=== PATIENT | female | born 1985 | race Caucasian/White ===

== ENCOUNTER 2017-10-06 18:53 | Inpatient (IN) | payer BC, OTHER ==
[2017-10-06] MEDS ORDERED: MORPHINE 4 MG/ML SYR ONE (19:38)
[2017-10-06] MEDS ORDERED: ONDANSETRON 4 MG/2 ML VIAL ONE (19:38)
[2017-10-06] MEDS ORDERED: NA CHLORIDE 0.9% 1,000 ML ONE (19:38)
[2017-10-06 19:43] LABS: Absolute Lymphocytes (CBC) 2.4 K/uL (0.7-4.9); Absolute Monocytes 0.5 K/uL (0.1-1.3); Absolute Neutrophil 4.7 K/uL (1.8-8.0); Basophils % 0.8 % (0-1.3); Eosinophils % 0.8 % (0-4.4); Hematocrit 39.2 % (36.0-45.0); Lymphocytes % 30.5 % (15.3-44.8); MCH 28.3 pg (27.0-35.0); MCV 83.6 fL (80-100); MPV 8.4 fL (7.6-11.3); RBC Red Blood Cell Count 4.69 M/uL (3.86-4.86)
[2017-10-06 20:02] LABS: Urine Blood NEGATIVE (NEG); Urine Glucose TRACE (NEG); Urine Protein 2+ (NEG); Urine pH 8.5 (5.0-7.0)
[2017-10-06 20:03] LABS: Urine Amorphous Sediment 3+ /HPF (NONE SEEN); Urine Bacteria 20-50 /HPF (<20)
[2017-10-06 20:04] LABS: Urine Culture Reflex Order REFLEXED; Urine RBC NONE SEEN /HPF (NONE SEEN)
[2017-10-06 20:07] LABS: Albumin 3.8 g/dL (3.4-5.0); Bilirubin Direct 1.2 mg/dL (0-0.2); Bilirubin Total 2.2 mg/dL (0.2-1.0); Potassium 3.7 mmol/L (3.5-5.1); Protein, Total 7.8 g/dL (6.4-8.2)
--- NOTE | 2017-10-06 20:21 | RAD REPORT ---
EXAM DESCRIPTION: US - Abdomen Exam Limited - 10/06/2017 7:54 pm CLINICAL HISTORY: Abdominal pain. COMPARISON: None. FINDINGS: The gallbladder wall is not thickened. A couple of small gallstones are present. The common bile duct measures 9 millimeters IMPRESSION: Cholelithiasis Dilatation of the common bile duct probably is secondary to a nonvisualized stone within the duct
--- NOTE | 2017-10-06 21:09 | EDPHYS ---
Physician Documentation [facility] Name: Ruchi Stafford Age: 32 yrs Sex: Female : 1985 Arrival Date: 10/06/2017 Time: 18:57 Bed 7 Private MD: Gilmar Esteban E ED Physician Mike Hammer HPI: 10/06 20:58 This 32 yrs old Female presents to ER via Ambulatory with complaints of gs Abdominal Pain. 20:58 The patient presents with abdominal pain. Onset: The symptoms/episode began/occurred gs yesterday. The symptoms do not radiate. Associated signs and symptoms: Pertinent positives: vomiting. The symptoms are described as sharp. Severity of pain: At its worst the pain was severe in the emergency department the pain is unchanged. The patient has not experienced similar symptoms in the past. 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 - Social history:: Smoking status: Patient uses tobacco products, smokes one-half pack cigarettes per day. - Ebola Screening: : No symptoms or risks identified at this time. ROS: 20:58 All other systems are negative. gs Exam: 20:58 Head/Face: Normocephalic, atraumatic. Eyes: Pupils equal round and reactive to light, gs extra-ocular motions intact. Lids and lashes normal. Conjunctiva and sclera are non-icteric and not injected. Cornea within normal limits. Periorbital areas with no swelling, redness, or edema. ENT: Nares patent. No nasal discharge, no septal abnormalities noted. Tympanic membranes are normal and external auditory canals are clear. Oropharynx with no redness, swelling, or masses, exudates, or evidence of obstruction, uvula midline. Mucous membranes moist. Neck: Trachea midline, no thyromegaly or masses palpated, and no cervical lymphadenopathy. Supple, full range of motion without nuchal rigidity, or vertebral point tenderness. No Meningismus. Chest/axilla: Normal chest wall appearance and motion. Nontender with no deformity. No lesions are appreciated. Cardiovascular: Regular rate and rhythm with a normal S1 and S2. No gallops, murmurs, or rubs. Normal PMI, no JVD. No pulse deficits. Respiratory: Lungs have equal breath sounds bilaterally, clear to auscultation and percussion. No rales, rhonchi or wheezes noted. No increased work of breathing, no retractions or nasal flaring. Back: No spinal tenderness. No costovertebral tenderness. Full range of motion. Skin: Warm, dry with normal turgor. Normal color with no rashes, no lesions, and no evidence of cellulitis. MS/ Extremity: Pulses equal, no cyanosis. Neurovascular intact. Full, normal range of motion. Neuro: Awake and alert, GCS 15, oriented to person, place, time, and situation. Cranial nerves II-XII grossly intact. Motor strength 5/5 in all extremities. Sensory grossly intact. Cerebellar exam normal. Normal gait. 20:58 Constitutional: The patient appears alert, awake. 20:58 Abdomen/GI: Palpation: moderate abdominal tenderness, in the right upper quadrant. Vital Signs: 19:09 BP 131 / 84; Pulse 63; Resp 18; Temp 97.4; Pulse Ox 99% on R/A; Weight 90.72 kg (R); ak1 Height 5 ft. 5 in. (165.10 cm) (R); Pain 10/10; 19:32 BP 140 / 80; Pulse 52; Resp 16; Pulse Ox 100% on R/A; lp1 20:25 BP 104 / 56; Pulse 52; Resp 16; Pulse Ox 100% on R/A; lp1 21:41 BP 112 / 85; Pulse 56; Resp 18; Temp 97.9; Pulse Ox 99% on R/A; Pain 3/10; lp1 19:09 Body Mass Index 33.28 (90.72 kg, 165.10 cm) ak1 MDM: 19:29 Patient medically screened. gs 20:58 Differential diagnosis: cholecystitis, Cholelithiasis, non-specific abd pain, urinary gs tract infection. Data reviewed: vital signs, nurses notes. Response to treatment: the patient's symptoms have markedly improved after treatment, and as a result, I will admit patient. Physician consultation: Jesus Alberto Ardon MD and will see patient in inpatient room, would like further tests performed, MRI. 20:58 Physician consultation: Alcides Wooten MD and will see patient in inpatient room. 10/06 19:33 Order name: Basic Metabolic Panel; Complete Time: 20:36 10/06 19:33 Order name: CBC with Diff; Complete Time: 20:36 10/06 19:33 Order name: Hepatic Function; Complete Time: 20:36 10/06 19:33 Order name: Lipase; Complete Time: 20:36 10/06 19:33 Order name: Urine Microscopic Only; Complete Time: 20:36 10/06 19:45 Order name: Urine Dipstick--Ancillary (enter results); Complete Time: 20:36 fl 10/06 19:33 Order name: IV Saline Lock; Complete Time: 19:37 10/06 19:33 Order name: Labs collected and sent; Complete Time: 19:37 10/06 19:33 Order name: US Abdomen Limited; Complete Time: 20:36 10/06 19:45 Order name: Urine --Ancillary (enter results); Complete Time: 20:36 fl 10/06 20:05 Order name: Urine Culture [facility] 10/06 19:33 Order name: Urine Dipstick-Ancillary (obtain specimen); Complete Time: 19:38 gs Administered Medications: 19:42 Drug: NS 0.9% 1000 ml Route: IV; Rate: 1 bolus; Site: left antecubital; ea 21:40 Follow up: IV Status: Completed infusion; IV Intake: 1000ml lp1 19:42 Drug: morphine 4 mg Route: IVP; Site: left antecubital; ea 20:19 Follow up: Response: No adverse reaction; Marked relief of symptoms ea 19:42 Drug: Zofran 4 mg Route: IVP; Site: left antecubital; ea 20:00 Follow up: Response: No adverse reaction ea Disposition: 10/06/17 21:08 Hospitalization ordered by Davon Elizondo for Inpatient Admission. Preliminary diagnosis is Calculus of bile duct with acute cholecystitis with obstruction. - Bed requested for Telemetry/MedSurg (Inpatient). - Status is Inpatient Admission. ea - Condition is Stable. - Problem is new. - Symptoms have improved. UTI on Admission? No Signatures: Dispatcher [employer] EDLyubov Pinot, RN RN fc Georgia Hurst, RN RN ak1 Gardenia Bob RN RN ea Mike Hammer MD MD Mickie Arvizu RN lp1 Corrections: (The following items were deleted from the chart) 21:29 21:08 Hospitalization Ordered by Davon Elizondo MD for Inpatient Admission. Preliminary fc diagnosis is Calculus of bile duct with acute cholecystitis with obstruction. Bed requested for Telemetry/MedSurg (Inpatient). Status is Inpatient Admission. Condition is Stable. Problem is new. Symptoms have improved. UTI on Admission? No. 21:54 21:29 10/06/2017 21:08 Hospitalization Ordered by Davon Elizondo MD for Inpatient ea Admission. Preliminary diagnosis is Calculus of bile duct with acute cholecystitis with obstruction. Bed requested for Telemetry/MedSurg (Inpatient). Status is Inpatient Admission. Condition is Stable. Problem is new. Symptoms have improved. UTI on Admission? No.
--- NOTE | 2017-10-06 21:09 | ER ---
Nurse's Notes [facility] Name: Ruchi Stafford Age: 32 yrs Sex: Female : 1985 Arrival Date: 10/06/2017 Time: 18:57 Bed 7 Private MD: Gilmar Esteban E Diagnosis: Calculus of bile duct with acute cholecystitis with obstruction Presentation: 10/06 19:08 Presenting complaint: Patient states: epigastric pain with N/V X3 days. pt has known ak1 gallstones from "years back". Transition of care: patient was not received from another setting of care. Onset of symptoms is unknown. Risk Assessment: Do you want to hurt yourself or someone else? Patient reports no desire to harm self or others. Initial Sepsis Screen: Does the patient meet any 2 criteria? No. Patient's initial sepsis screen is negative. Does the patient have a suspected source of infection? No. Patient's initial sepsis screen is negative. Care prior to arrival: None. 19:08 Method Of Arrival: Ambulatory ak1 19:08 Acuity: MELY 3 ak1 Triage Assessment: 19:09 General: Appears in no apparent distress. uncomfortable, Behavior is calm, cooperative. ak1 Pain: Complains of pain in epigastric area. EENT: No signs and/or symptoms were reported regarding the EENT system. Neuro: No deficits noted. Cardiovascular: No deficits noted. Respiratory: No deficits noted. GI: Reports upper abdominal pain, nausea, vomiting. : No signs and/or symptoms were reported regarding the genitourinary system. Derm: No signs and/or symptoms reported regarding the dermatologic system. Musculoskeletal: No signs and/or symptoms reported regarding the musculoskeletal system. 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 - Social history:: Smoking status: Patient uses tobacco products, smokes one-half pack cigarettes per day. - Ebola Screening: : No symptoms or risks identified at this time. Screenin:32 Abuse screen: Denies threats or abuse. Denies injuries from another. Nutritional lp1 screening: No deficits noted. Tuberculosis screening: No symptoms or risk factors identified. Fall Risk None identified. Assessment: 19:31 General: Appears uncomfortable, Behavior is crying. Pain: Complains of pain in lp1 epigastric area Pain currently is 9 out of 10 on a pain scale. Quality of pain is described as sharp, stabbing. Neuro: Level of Consciousness is awake, alert, obeys commands. Cardiovascular: Patient's skin is warm and dry. Respiratory: Respiratory effort is even, unlabored. GI: Abdomen is non-distended, Bowel sounds present X 4 quads. Abdomen is tender to palpation in epigastric area Reports upper abdominal pain, nausea, vomiting. : No signs and/or symptoms were reported regarding the genitourinary system. EENT: No signs and/or symptoms were reported regarding the EENT system. Derm: Skin is pink, warm \\T\\ dry. Musculoskeletal: Circulation, motion, and sensation intact. 20:05 Reassessment: Patient and/or family updated on plan of care and expected duration. Pain ea level reassessed. Patient is alert, oriented x 3, equal unlabored respirations, skin warm/dry/pink. 21:00 Reassessment: Patient appears in no apparent distress at this time. Patient and/or lp1 family updated on plan of care and expected duration. Pain level reassessed. Patient is alert, oriented x 3, equal unlabored respirations, skin warm/dry/pink. Patient states relief with meds administered. 21:33 Reassessment: Attempted to give report, nurse will call back. lp1 21:48 Reassessment: Report given to Nimo RN on second floor. ea 21:53 Reassessment: Patient and/or family updated on plan of care and expected duration. Pain ea level reassessed. Patient is alert, oriented x 3, equal unlabored respirations, skin warm/dry/pink. Pt taken to second floor via wheelchair per nurse. Vital Signs: 19:09 BP 131 / 84; Pulse 63; Resp 18; Temp 97.4; Pulse Ox 99% on R/A; Weight 90.72 kg (R); ak1 Height 5 ft. 5 in. (165.10 cm) (R); Pain 10/10; 19:32 BP 140 / 80; Pulse 52; Resp 16; Pulse Ox 100% on R/A; lp1 20:25 BP 104 / 56; Pulse 52; Resp 16; Pulse Ox 100% on R/A; lp1 21:41 BP 112 / 85; Pulse 56; Resp 18; Temp 97.9; Pulse Ox 99% on R/A; Pain 3/10; lp1 19:09 Body Mass Index 33.28 (90.72 kg, 165.10 cm) ak1 ED Course: 18:57 Patient arrived in ED. mr 18:57 Gilmar Esteban MD is Private Physician. mr 19:08 Triage completed. ak1 19:09 Arm band placed on Patient placed in waiting room, Patient notified of wait time. ak1 19:11 Urine collected: clean catch specimen. ak1 19:21 Mike Hammer MD is Attending Physician. gs 19:25 Mickie Arvizu RN is Primary Nurse. lp1 19:30 Inserted saline lock: 20 gauge in left antecubital area, using aseptic technique. Blood lp1 collected. 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 19:32 Patient has correct armband on for positive identification. Placed in gown. Pulse ox lp1 on. NIBP on. 19:54 US Abdomen Limited In Process Unspecified. EDMS 20:15 Notified ED physician of a critical lab result(s). ALT 367. ak1 21:06 Davon Elizondo MD is Hospitalizing Provider. gs 21:33 No provider procedures requiring assistance completed. Patient admitted, IV remains in lp1 place. Administered Medications: 19:42 Drug: NS 0.9% 1000 ml Route: IV; Rate: 1 bolus; Site: left antecubital; ea 21:40 Follow up: IV Status: Completed infusion; IV Intake: 1000ml lp1 19:42 Drug: morphine 4 mg Route: IVP; Site: left antecubital; ea 20:19 Follow up: Response: No adverse reaction; Marked relief of symptoms ea 19:42 Drug: Zofran 4 mg Route: IVP; Site: left antecubital; ea 20:00 Follow up: Response: No adverse reaction ea Intake: 21:40 IV: 1000ml; Total: 1000ml. lp1 Outcome: 21:08 Decision to Hospitalize by Provider. gs 21:33 Condition: stable lp1 21:33 Instructed on the need for admit. 21:53 Admitted to Med/surg accompanied by nurse, via wheelchair, with chart, Report called to lacey Suero RN 21:54 Patient left the ED. lacey Signatures: Dispatcher [employer] ED Earnest Keira Arvizu, Mickie, RN RN lp1 Georgia Hurst, RN RN ak1 Gardenia Bob RN RN Mike Marte MD MD gs Corrections: (The following items were deleted from the chart) 21:39 21:38 Pulse 52bpm; Resp 16bpm; Pulse Ox 100% RA; Temp 97.9F Oral; lp1 lp1
--- NOTE | 2017-10-06 21:34 | P.HP ---
Certification for Inpatient Patient admitted to: Inpatient With expected LOS: >2 Midnights Practitioner: I am a practitioner with admitting privileges, knowledge of patient current condition, hospital course, and medical plan of care. Services: Services provided to patient in accordance with Admission requirements found in Title 42 Section 412.3 of the Code of Federal Regulations Patient History Date of Service: 10/06/17 Reason for admission: cholangitis History of Present Illness: Ms Stafford is a 32 years old woman with history of depression and GERD, who start about 3 days ago with RUQ abdominal pain, 8/10 of intensity, stubbing, constant, radiated to epigastric area, associated with nausea and vomiting. She denied fever, but has had chills. She was not able to keep food down. About 2 years ago she had an exploratory laparoscopy done by Gynecology for potential endometriosis. During this procedure, she was told that her gallbladder looks inflamed, however, she never follow up this finding. Today Lab work remarkable for normal WBC count, elevated transaminases, bilirubin and alk phos. No fever noted. Allergies amoxicillin Allergy (Verified 03/27/16 15:43) Rash hydrocodone Adverse Reaction (Verified 03/27/16 15:43) Nausea/Vomiting fish oil Adverse Reaction (Mild, Uncoded 03/27/16 15:43) Hives/Rash Home medications list reviewed: Yes Home Medications: Diclofenac Sodium [Voltaren] 75 mg PO BID 03/27/16 Gabapentin [Neurontin] 600 mg PO BID 03/27/16 Melatonin 10 mg PO BEDTIME 03/27/16 Phentermine HCl [Adipex-P] 37.5 mg PO DAILY 03/27/16 - Past Medical/Surgical History -: depression -: GERD -: Pike teeth 2003 -: nvdx4 - Family History Family History: Reviewed- Non-Contributory - Social History Smoking Status: Current every day smoker (vape) Alcohol use: Yes CD- Drugs: Yes Place of Residence: Home Review of Systems 10-point ROS is otherwise unremarkable Physical Examination - Physical Exam General: Alert, In no apparent distress HEENT: Atraumatic, PERRLA, Mucous membr. moist/pink, EOMI, Sclerae nonicteric Neck: Supple, 2+ carotid pulse no bruit, No LAD, Without JVD or thyroid abnormality Respiratory: Clear to auscultation bilaterally, Normal air movement Cardiovascular: Regular rate/rhythm, Normal S1 S2 Gastrointestinal: Normal bowel sounds, Tenderness (RUQ, epigastrium) Musculoskeletal: No tenderness Integumentary: No rashes Neurological: Normal speech, Normal strength at 5/5 x4 extr, Normal tone, Normal affect Lymphatics: No axilla or inguinal lymphadenopathy - Studies Laboratory Data (last 24 hrs) 10/06/17 19:30: WBC 7.8, Hgb 13.2, Hct 39.2, Plt Count 281 10/06/17 19:30: Sodium 139, Potassium 3.7, BUN 14, Creatinine 0.90, Glucose 89, Total Bilirubin 2.2 H, AST 282 H, ALT 367 H*, Alkaline Phosphatase 142 H, Lipase 133 Assessment and Plan - Problems (Diagnosis) (1) Dilated cbd, acquired Current Visit: Yes Status: Acute (2) Cholangitis Current Visit: Yes Status: Acute - Plan Will admit the patient to the hospital due to abdominal pain, secondary to biliary obstruction. She has no currently fever but abnormal liver function, clinically behave as cholangitis. US showed dilated CBD 9 mm, but not obvious stone. Will start empiric Cipro and Flagyl, consult Dr Ardon for ERCP, and Dr Wright for cholecystectomy. - Advance Directives Does patient have a Living Will: No Does patient have a Durable POA for Healthcare: No - Code Status/Comfort Care Code Status Assessed: Yes Code Status: Full Code
[2017-10-06 22:10] VITALS: BMI 33.8
[2017-10-06] MEDS ORDERED: Morphine 2 MG/2 ML SYR IV PRN (22:33)
[2017-10-06] MEDS: NA CHLORIDE 0.9% 1,000 ML IV SCH (22:50)
[2017-10-06] MEDS: CIPROFLOXACIN 400mg IV 400 MG/200 ML BAG IV SCH (22:53)
[2017-10-07] MEDS: METRONIDAZOLE 500mg IVPB 500 MG/100 ML BAG IV SCH ×3 (00:01→16:24)
[2017-10-07 05:14] LABS: Absolute Lymphocytes (CBC) 2.3 K/uL (0.7-4.9); Absolute Monocytes 0.6 K/uL (0.1-1.3); Absolute Neutrophil 2.4 K/uL (1.8-8.0); Basophils % 0.5 % (0-1.3); Eosinophils % 2.3 % (0-4.4); Hematocrit 35.3 % (36.0-45.0); Lymphocytes % 41.9 % (15.3-44.8); MCH 28.3 pg (27.0-35.0); MCV 84.2 fL (80-100); MPV 8.7 fL (7.6-11.3); Monocytes % 10.7 % (3.3-12.3); RBC Red Blood Cell Count 4.19 M/uL (3.86-4.86)
[2017-10-07 05:42] LABS: AST/SGOT 197 U/L (15-37); Albumin 3.2 g/dL (3.4-5.0); Alkaline Phosphatase 122 U/L (45-117); BUN Blood Urea Nitrogen 12 mg/dL (7-18); Bicarbonate 25 mmol/L (21-32); Bilirubin Total 1.6 mg/dL (0.2-1.0); Glucose Level 93 mg/dL (74-106); Potassium 3.8 mmol/L (3.5-5.1); Protein, Total 6.5 g/dL (6.4-8.2); Sodium Level 141 mmol/L (136-145)
[2017-10-07 05:48] LABS: ALT/SGPT 329 U/L (12-78)
[2017-10-07] MEDS ORDERED: KCL 20 MEQ/100 mL IVPB 20 MEQ/100 ML BAG IV SCH (07:00)
[2017-10-07] MEDS: NA CHLORIDE 0.9% 1,000 ML IV SCH ×2 (08:57→16:23)
[2017-10-07] MEDS ORDERED: SODIUM CHLORIDE 0.9% 10ML INJ IV PRN (09:27)
[2017-10-07] MEDS: MORPHINE 4 MG/ML SYR IV PRN ×3 (09:43→20:22)
[2017-10-07] MEDS: PANTOPRAZOLE 40 MG INJ IVP SCH (09:44)
[2017-10-07] MEDS: ONDANSETRON 4 MG/2 ML VIAL IV PRN ×3 (09:47→22:44)
[2017-10-07] MEDS: CIPROFLOXACIN 400mg IV 400 MG/200 ML BAG IV SCH ×2 (12:00→22:41)
--- NOTE | 2017-10-07 15:24 | PN ---
Date of Progress Note: 10/07/2017 Subjective: The patient seen and examined, chart reviewed and case discussed with RN. The patient s tates that her pain is still present. No further nausea or vomiting. Review of Systems: Negative except as above. Medications: Reviewed. Objective: Vital Signs: Temperature 97.4, heart rate 59, blood pressure 94/84, respirations 16, and O2 100% on room air. General: Awake, alert, oriented x3. Some mild distress. Obese female. BMI 33.9. CV: S1, S2. No murmurs. Regular rate and rhythm. Peripheral pulses present. Respiratory: Clear to auscultation bilaterally. No wheezing. Gastrointestinal: Abdomen is soft. Mild tenderness to palpation in the right upper quadrant. No re bound or guarding. Bowel sounds positive. Extremities: No clubbing, cyanosis, or edema. Neurologic: Nonfocal. Laboratory Data: Potassium 4, sodium 141, chloride 110, CO2 25, BUN 12, creatinine 0.6, glucose 93, calcium 8, total bilirubin 1.6, AST 197, ALT 329, and alkaline phosphatase 122. WBC 5.4, H and H 11. 8, 35.3. Urine culture shows mixed yodit. Assessment And Plan: A 32-year-old female with; 1.Right upper quadrant abdominal pain, likely secondary to #2. 2.Dilated common bile duct. We will obtain MRCP. GI has been consulted. We will continue with crescencio n medications and prophylactic antibiotics. 3.Cholangitis. We will continue IV antibiotics. We will follow up with surgery and GI recommendati ons. 4.Obesity, body mass index 33.9. 5.Gastroesophageal reflux disease without esophagitis. We will continue with IV PPI. 6.Gastrointestinal and deep venous thrombosis prophylaxis with PPI and SCDs. No chemical anticoagul ation due to possible intervention. SA/MODL Voice ID: [id number] Report ID: [id number]
--- NOTE | 2017-10-07 17:27 | CON ---
Date of Consultation: 10/07/2017 A 32-year-old female, Dr. Mendoza, 211. Reason For Consultation: Abnormal liver enzymes and biliary tract dilation. History Of Present Illness: Ms. Stafford is a 32-year-old female, who has been having intermittent ab dominal pain in the epigastrium and right upper quadrant along with nausea, vomiting, radiating to th e back. Her pain became worse that is 10/10. As a result, she came to the hospital. In the hospita l her not only LFTs are abnormal, ultrasound shows cholelithiasis along with biliary dilation, total bilirubin of 1.6, and AST ALT has been 197/329 respectively. As a result, I have been consulted. At this time, she is feeling somewhat better, however, pain intensity is still 7/10. Denies any meño temesis, melena, or hematochezia. Denies any fever chills. She did notice that her urine is darker in color. Past Medical History: As above. Past Surgical History: Not related to above other than laparoscopy. Social History: Positive recreational drug use of marijuana, positive smoking. Psychiatric History: None. Family History: History of cancer on both sides of the family, however, exact location unknown. Allergies: REVIEWED IN THE CHART. Medications: Reviewed in the chart. Review of Systems: General: no fever, chills. No weight loss, weight gain. Appetite has been good until the acute att ack of pain on Thursday. GI: As elaborated above. Hepatologic: As above. Pulmonary: No shortness of breath, cough, or expectoration. Cardiac: No palpitation, heart murmur. No orthopnea or dyspnea. Genitourinary: No complaint. Musculoskeletal: No complaint. No arthralgia, myalgia. Dermatologic: No complaint, no pruritus. Physical Examination: General: Young female, at this time in mild amount of distress from pain. Hemodynamic and respirato ry profile within normal range. HEENT: Atraumatic, normocephalic. Slight icterus. No pallor noted. Neck: Supple. No lymphadenopathy. Trachea central in position. Chest: Clear to auscultation and percussion. Cardiovascular: Normal S1, S2. No S3, no S4. Abdomen: Soft, although very tender. Positive Lepe sign. Bowel sounds are feeble, but present. No hepatomegaly. No splenomegaly. No succussion splash. No rebound tenderness. Extremities: Upper and lower extremities are normal and symmetrical. Muscle mass is good. Dermatologic: Normal. Diagnostic Data: Ultrasound as elaborated above and labs as elaborated above. Hemoglobin and hemato crit have been 11 and 35. Impression, Plan, And Recommendation: Ms. Stafford is a 32-year-old female with biliary dilation and cholelithiasis. Ultrasound shows biliary dilatation. An MRCP will be important. If MRCP shows ston e, she will need preoperative ERCP, otherwise she can go for direct cholecystectomy. I have had a discussion with the patient and her mother regarding the indications, contraindications, possible complications, alternatives of the ERCP along with stent placement, etc. She has good unde rstanding. Discussion of complications included, but not limited to the possibility of bleeding, per foration, tear, infection, sepsis, need for surgery, need for blood transfusion, and anesthesia related problem. She has good understan ding. She is agreeable. DIPAK/LISA Voice ID: [id number] Report ID: [id number]
--- NOTE | 2017-10-07 18:30 | CON ---
Date of Consultation: 10/07/2017 Brief History Of Present Illness: The patient is a 32-year-old female, who presents to [facility] with approximately 3 days of abdominal pain beginning after binge eating. She states that she ate unusually large amount of fried food, ice cream, and greasy food on Thursday evening. She develope d sudden onset of midepigastric abdominal pain followed by voluminous emesis, which gave her some sym ptomatic relief. However, she continued to have pain in the epigastric region, which then radiated t o the right upper quadrant. She states that the pain got subsequently worse over the course of the s ever days following this and is now located primary in the right upper quadrant. She has had persi stent nausea, vomiting. She has not had similar episodes before in the past. She feels significantl y better since being in the hospital, however, her symptoms have not completely resolved at this poin t. She continues to have the same type of sharp stabbing abdominal pain in the right upper quadrant, which is intermittent now at this time with some radiation through to the back. Past Medical History: GERD and depression. Past Surgical History: She has had a laparoscopy only. Home Medications: Include Prozac and Protonix. She has not been taking the Protonix however as of l . Allergies: TO AMOXICILLIN AND VARIOUS FORMS OF FISH OILS. Gynecologic History: Her last menstrual period 09/30/2017. Smoking History: Smoking history; she has a 10+ tobacco use history, but she quit recently and has m magen over to vaping. She actively smokes marijuana every day. She denies any other recreational miki g use. Review of Systems: A 10-point review of systems other than HPI denies. Physical Examination: Vital Signs: At the time of examination, her BMI is 33.9. She had a heart rate of 55, blood pressur e 100/51, temperature 98.2, and respiratory rate 16. General: She is awake, alert, and oriented. Psychiatric: She is appropriate and conversive. HEENT: Normocephalic. Sclerae are anicteric. Mucous members are moist. Oropharynx is clear. Neck: Supple. No JVD. Chest: Normal expansion and excursion. Cardiovascular: Regular rate and rhythm. Pulmonary: Clear to auscultation bilaterally. Abdomen: Soft with positive epigastric and right upper quadrant tenderness to palpation. Negative M urphy sign, but she does have tenderness to the right upper quadrant. No CVA angle tenderness. No r ebound. No guarding. No focal peritonitis. No hernias appreciated. Extremities: No clubbing, cyanosis, or edema. Skin: Warm and dry generally. Laboratory Data: White blood cell count cell count was 5.4, hemoglobin 11.8 over hematocrit 35.3, pl atelet count is 232. Her sodium 141, potassium 4.0, chloride 110, carbon dioxide 25, BUN 12, creatin ine 0.6, glucose is 93, and calcium 8.0. Her total bilirubin was 1.6, down from 2.2 on admission. D irect component is 1.2 on admission. AST is 197, down from 282 on admission, ALT is 329, down from 3 67 on admission. Alkaline phosphatase is 122, down from 142 on admission. Her globin is 3.3. Her l ipase is 133. Her UA showed 5-10 squamous cells, amorphous sediments 3+, bacteria 20-50, 2+ protein. Her test was essentially was negative. She had an ultrasound of the abdomen, which is of ficially read by Dr. Vu as the gallbladder wall is not thickened. A couple of small gallstones are present. The common bile duct measures 9 mm. This is consistent with cholelithiasis. There is dilatation of the common bile duct, probably secondary to nonvisualized stone within the duct. Assessment And Plan: This is a 32-year-old female, who presents with signs and symptoms of choledoch olithiasis. 1.IV fluid hydration. 2.Antibiotic coverage. 3.N.p.o. 4.Dr. Ardon has been consulted to see the patient. 5.MRCP will be performed to see if there is a stone in the duct system. If there is a stone, Dr. Chase will likely perform ERCP prior to any surgical intervention. I have discussed the risks, benefits , and alternatives of laparoscopic, possible open cholecystectomy including, but not limited to bleed ing, infection, damage to surrounding tissues, injury to bile ducts, intestines, need further operati on or procedures. She agrees to proceed as indicated. Thank you for this interesting consult. JACKELYN/LISA Voice ID: [id number] Report ID: [id number]
--- NOTE | 2017-10-07 19:35 | RAD REPORT ---
EXAM DESCRIPTION: MRICholangiogram10/07/2017 7:14 pm CLINICAL HISTORY: Abdominal pain and vomiting COMPARISON: October 06, 2017 ultrasound TECHNIQUE: Magnetic resonance cholangiogram was performed. Source images were reviewed and reconstru cted at 360 degrees rotation FINDINGS: The gallbladder wall is upper limits normal thickness. Couple of small filling defects wit hin the posterior gallbladder represent stones. . Mild dilatation of the intra and extrahepatic biliary tree is present. A filling defect within the co mmon bile duct is not seen. A stricture is not visualized. The pancreatic duct appears unremarkable IMPRESSION: Cholelithiasis. Mild dilatation of the intra and extrahepatic biliary tree. A stone within the duct was not visualize d
[2017-10-08] MEDS: METRONIDAZOLE 500mg IVPB 500 MG/100 ML BAG IV SCH ×3 (01:12→17:01)
[2017-10-08] MEDS: NA CHLORIDE 0.9% 1,000 ML IV SCH ×3 (04:09→22:15)
[2017-10-08 05:38] LABS: Absolute Lymphocytes (CBC) 2.3 K/uL (0.7-4.9); Absolute Monocytes 0.4 K/uL (0.1-1.3); Absolute Neutrophil 3.1 K/uL (1.8-8.0); Basophils % 0.4 % (0-1.3); Eosinophils % 2.5 % (0-4.4); Hematocrit 34.7 % (36.0-45.0); Lymphocytes % 38.5 % (15.3-44.8); MCH 28.6 pg (27.0-35.0); MCV 84.7 fL (80-100); MPV 8.8 fL (7.6-11.3); Monocytes % 7.3 % (3.3-12.3); RBC Red Blood Cell Count 4.09 M/uL (3.86-4.86)
[2017-10-08 05:49] LABS: ALT/SGPT 231 U/L (12-78); AST/SGOT 63 U/L (15-37); Albumin 3.2 g/dL (3.4-5.0); Alkaline Phosphatase 112 U/L (45-117); BUN Blood Urea Nitrogen 6 mg/dL (7-18); Bicarbonate 23 mmol/L (21-32); Bilirubin Total 1.1 mg/dL (0.2-1.0); Glucose Level 89 mg/dL (74-106); Potassium 3.8 mmol/L (3.5-5.1); Protein, Total 6.8 g/dL (6.4-8.2); Sodium Level 140 mmol/L (136-145)
[2017-10-08] MEDS: ONDANSETRON 4 MG/2 ML VIAL IV PRN ×2 (06:04→14:32)
[2017-10-08] MEDS: MORPHINE 4 MG/ML SYR IV PRN ×5 (06:06→22:49)
[2017-10-08] MEDS ORDERED: KCL 20 MEQ/100 mL IVPB 20 MEQ/100 ML BAG IV SCH (07:00)
--- NOTE | 2017-10-08 08:35 | P.PN ---
Subjective Date of Service: 10/08/17 Chief Complaint: cholangitis Subjective: Improving (Patient feels much better, pain almost resolved.) Physical Examination - Vital Signs Temperature: 97.3 F Blood Pressure: 104/58 Pulse: 56 Respirations: 16 Pulse Ox (%): 99 - Physical Exam General: Alert, In no apparent distress, Cooperative HEENT: Mucous membr. moist/pink Gastrointestinal: Other (soft, mild RUQ TTP, ND, no rebound no guarding) - Studies Microbiology Data (last 24 hrs): 10/06/17 19:35 Clean Catch Urine [place] Count - Final >100,000 CFU/ML. 10/06/17 19:35 Clean Catch Urine - Final Assessment And Plan - Current Problems (Diagnosis) (1) Cholangitis Onset Date: 10/07/17 Current Visit: Yes Status: Acute Plan: Patient to get ERCP with Dr. Ardon today - will plan for laparoscopic cholecystectomy tomorrow if cleared by GI - NPO after midnight - I have explained the risks, benefits and alternatives to laparoscopic possible open cholecystectomy including but not limited to bleeding, infection, damage to surrounding tissues, injury to bile ducts, and intestines, need for more surgery.
[2017-10-08] MEDS ORDERED: GENTAMICIN SULF 80 MG/2ML INJ ONE (08:54)
[2017-10-08] MEDS ORDERED: PROPOFOL 200 MG/20 ML VIAL IV ONE ×3 (09:07→12:22)
[2017-10-08] MEDS ORDERED: LIDOCAINE 1% MPF 5 ML VIAL ONE ×2 (09:08→12:22)
[2017-10-08] MEDS: PANTOPRAZOLE 40 MG INJ IVP SCH (10:06)
--- NOTE | 2017-10-08 12:01 | PN ---
Date of Progress Note: 10/08/2017 Subjective: The patient seen and examined, chart reviewed, and case discussed with RN. The patient is going for ERCP today. Still having some pain and nausea, however, no vomiting, slightly improved. Review of Systems: Negative except as above. Medications: List reviewed. Objective: Vital Signs: Temperature 97.5, heart rate 58, blood pressure 126/52, respirations 16, an d O2 100% on room air. General: Awake, alert, oriented x3. Some mild distress. Obese female. BMI 33.9. CV: S1, S2. No murmurs. Regular rate and rhythm. Peripheral pulses present. Respiratory: Clear to auscultation bilaterally. No wheezing. No stridor. Gastrointestinal: Abdomen is soft. Mild tenderness to palpation. No guarding or rigidity. No palp able masses. Bowel sounds positive. Extremities: No clubbing, cyanosis, edema. Neurologic: Nonfocal. Laboratory Data: Sodium 140, potassium 3.8, chloride 108, CO2 23, BUN 6, creatinine 0.6, glucose 89, calcium 8.3, total bilirubin 1.1, AST 63, ALT 231, and albumin 3.2. Urine culture shows mixed yodit . MRCP done yesterday showed cholelithiasis, mild dilatation of the intra and extrahepatic biliary t ree. Stone within the duct was not visualized. Assessment: A 32-year-old female with; 1.Right upper quadrant abdominal pain secondary to cholelithiasis and dilated common bile duct with possible choledocholithiasis. 2.Cholelithiasis. The patient will likely need cholecystectomy. Dr. Wooten on the case. 3.Dilated common bile duct. MRCP shows some dilatation, but no stone, may have passed. T bilirubin is coming down. Liver enzymes are also improving. may not need ERCP. We will discuss with GI. 4.Obesity, body mass index 33.9. 5.Gastroesophageal reflux disease without esophagitis. Continue IV PPI. 6.Gastrointestinal and deep venous thrombosis prophylaxis with PPI and SCDs. No chemical anticoagul ation due to possible intervention and procedures. /LISA Voice ID: [id number] Report ID: [id number]
[2017-10-08] MEDS ORDERED: NA CHLORIDE 0.9% 1,000 ML ONE (12:19)
[2017-10-08] MEDS ORDERED: GLYCOPYRROLATE 0.2 MG/ML SYR ONE ×2 (12:23→12:54)
[2017-10-08] MEDS: CIPROFLOXACIN 400mg IV 400 MG/200 ML BAG IV SCH ×2 (14:32→22:13)
--- NOTE | 2017-10-08 16:37 | OP ---
Date of Procedure: 10/08/2017 Surgeon: Jesu sAlberto Ardon MD A 32-year-old female, Dr. Mendoza. Procedures: 1.Endoscopic retrograde cholangiopancreatography. 2.Papillotomy. 3.Dilation of the papilla. 4.Removal of multiple stones. 5.8.5-Armenian 5-cm stent placement. 6.Intraoperative supervision and interpretation of biliary x-ray, fluoroscopy, total fluoroscopic ti me 1.57 minutes. Anesthesia: By Department of Anesthesia. Indications: Cholangitis, bile duct dilation, suspected choledocholithiasis. Premedication: Per anesthesia. Complexity: Complex by very nature. Tolerance Of Sedation: Excellent. Procedure In Detail: Procedure, possible complications, alternatives including, but not limited to p ossibility of bleeding, perforation, tear, infection, sepsis, need for surgery, need for blood transf usion, and 5-50% incidence of acute pancreatitis, anesthesia related problems including rare fatality explained to the patient. Informed consent was obtained. She was placed in left prone position. A fter appropriate level of sedation, scope was passed. Esophageal mucosa and gastric mucosa were not visualized due to side-view nature of the scope. In the duodenum, duodenum appeared to be normal, ho wever, major papilla appeared to be abnormal and swollen. However selective cannulation of the commo n bile duct was achieved by using cannula on the first chance. Multiple distal filling defects were noted. Common bile duct, common hepatic duct, right and left hepatic ducts and intrahepatic ducts sh owed mild dilation. At this time, deep cannulation was obtained with the help of a guidewire and a 3 mm papillotomy was d one. After this, papilla was dilated. After this, balloon was serially past. First dilation of the papilla and after that, multiple stones removed. Cholangitis also noted. After this, to ensure biliary drainage, 8.5-Armenian 5-cm stent placed was Total fluoroscopic time 1.57 minutes. Pancreatic duct was selectively avoided. Having done the above procedure in a safe, diligent, and satisfactory manner, endoscope and rest of t he endoscopic accessories were removed. The patient's oropharyngeal area cleaned out in a respectful manner. The patient has been sent in excellent condition to postop recovery, from there to the [facility] Impression: Choledocholithiasis. Plan: Await for clinical response. We will start diet. Okay for laparoscopic cholecystectomy. Complications: None immediately. The patient tolerated the procedure well. Disposition: As above. DIPAK/LISA Voice ID: [id number] Report ID: [id number]
[2017-10-08] MEDS: PROMETHAZINE 25 MG/ML VIAL IV PRN ×2 (17:01→22:47)
[2017-10-09] MEDS: METRONIDAZOLE 500mg IVPB 500 MG/100 ML BAG IV SCH ×2 (00:50→09:14)
[2017-10-09 05:58] LABS: Absolute Lymphocytes (CBC) 1.9 K/uL (0.7-4.9); Absolute Monocytes 0.6 K/uL (0.1-1.3); Absolute Neutrophil 3.9 K/uL (1.8-8.0); Basophils % 0.5 % (0-1.3); Eosinophils % 1.1 % (0-4.4); Hematocrit 36.9 % (36.0-45.0); Lymphocytes % 29.7 % (15.3-44.8); MCH 28.7 pg (27.0-35.0); MCV 84.3 fL (80-100); MPV 8.5 fL (7.6-11.3); Monocytes % 8.5 % (3.3-12.3); RBC Red Blood Cell Count 4.38 M/uL (3.86-4.86)
[2017-10-09] MEDS: PROMETHAZINE 25 MG/ML VIAL IV PRN (05:58)
[2017-10-09] MEDS: MORPHINE 4 MG/ML SYR IV PRN ×2 (05:59→12:37)
[2017-10-09 06:12] LABS: ALT/SGPT 177 U/L (12-78); AST/SGOT 41 U/L (15-37); Albumin 3.4 g/dL (3.4-5.0); Alkaline Phosphatase 108 U/L (45-117); BUN Blood Urea Nitrogen 6 mg/dL (7-18); Bicarbonate 24 mmol/L (21-32); Bilirubin Total 0.8 mg/dL (0.2-1.0); Glucose Level 82 mg/dL (74-106); Potassium 3.5 mmol/L (3.5-5.1); Protein, Total 7.3 g/dL (6.4-8.2); Sodium Level 139 mmol/L (136-145)
[2017-10-09] MEDS ORDERED: KCL 20 MEQ/100 mL IVPB 20 MEQ/100 ML BAG IV SCH (07:00)
[2017-10-09] MEDS ORDERED: Ringers Lactate 1,000 ML IV ONE ×2 (08:16→10:25)
[2017-10-09] MEDS: PANTOPRAZOLE 40 MG INJ IVP SCH (09:00)
[2017-10-09] MEDS ORDERED: PROPOFOL 200 MG/20 ML VIAL IV ONE (09:22)
[2017-10-09] MEDS ORDERED: LIDOCAINE 2% MPF 5 ML VIAL ONE (09:22)
[2017-10-09] MEDS ORDERED: GLYCOPYRROLATE 0.2 MG/ML SYR ONE (09:22)
[2017-10-09] MEDS ORDERED: MIDAZOLAM HCL 2 MG/2 ML INJ ONE (09:22)
[2017-10-09] MEDS ORDERED: FENTANYL CITR 250 MCG/5 ML ONE (09:23)
[2017-10-09] MEDS ORDERED: ROCURONIUM 50 MG/5 ML VIAL IV ONE (09:28)
[2017-10-09] MEDS: BUPIVACA 0.25%/EPI 0.0005%/PF 30 ML VIAL ONE ×2 (09:44→09:53)
[2017-10-09] MEDS: NA CHLORIDE 0.9% 1,000 ML IV SCH (10:33)
--- NOTE | 2017-10-09 10:48 | P.OP ---
Preoperative diagnosis: Acute Cholecystitis Postoperative diagnosis: Acute Cholecystitis Primary procedure: Laparoscopic Cholecystectomy Anesthesia: GETA + Local Estimated blood loss: <10cc Specimen: Gallbladder Findings: Acute inflammation Complications: None Transferred to: Recovery Room Condition: Good
[2017-10-09] MEDS: MEPERIDINE HCL 50 MG/ML AMP ONE ×6 (11:00→11:32)
--- NOTE | 2017-10-09 11:34 | OP ---
Date of Procedure: 10/09/2017 Surgeon: Alcides Wooten MD, Postoperative Diagnosis: Acute cholecystitis. Postoperative Diagnosis: Acute cholecystitis. Procedure Performed: Laparoscopic cholecystectomy. Anesthesia: General endotracheal plus local with 0.25% Marcaine with epinephrine. Estimated Blood Loss: Less than 10 cc. Specimen: Gallbladder. Findings: Acute inflammation and omental attachments to the anterior surface of the gallbladder and near the Sandra's pouch. Complications: None. Disposition: Transferred to recovery room in good condition. Procedure In Detail: After informed consent was obtained, the patient was brought to the operating r oom, prepped and draped in the usual sterile fashion. After adequate anesthesia was achieved, the welsh praumbilical area was anesthetized with 0.25% Marcaine and sharply incised. A 5-mm optical trocar wa s introduced into the abdomen without evidence complication. Insufflation was obtained to 15 mmHg. The area was inspected. There was no vital injury to vital structures upon entry into the abdomen. Additional trocar site was chosen in the epigastric region. This was similarly anesthetized and gaurav ply incised. A 5-mm trocar was introduced into the abdomen without evidence of complication. The 5 mm supraumbilical trocar was then removed and upsized to 12 mm under direct visualization without leonel dence of complication. Additional trocar site was chosen in the right upper quadrant. This was triston larly anesthetized and sharply incised and a 5 mm optical trocar was introduced into the abdomen with out evidence complication. The patient was then positioned head up right side up position, gallbladd er position. Ratcheted grasper was used to grasp the gallbladder towards the patient's right shoulde r. [place] retractor was used to take the omental attachments off the anterior surface of the gallb ladder down near the Sandra's pouch. There were significant inflammatory changes near this portion of the gallbladder and significant scarring and firm tissue consistent with acute on chronic cholecy stitis picture. Dissection continued down the Sandra's pouch to expose 2 structures, which were id entified as both the cystic duct and cystic artery. The critical view of safety was obtained from kunal th the anterior and lateral directions. After identifying that the cystic duct and cystic artery wer e visualized and the critical view of safety obtained, once again the Endo clips were placed doubly o n the proximal side and singly on the distal side of the cystic duct and cystic artery. These struct ures were then ligated using Endo Jeramie. The gallbladder was then removed from the hepatic fossa us ing the electrocautery with good hemostasis. Minimal hemostatic maneuvers were required to the hepat ic fossa for good hemostasis. The gallbladder was then placed in an EndoCatch bag after being remove d from the hepatic fossa, placed in EndoCatch bag. I removed umbilical trocar and sent off for patho logic examination. The abdomen was then re-insufflated at this time and area was inspected for prope r hemostasis, which was achieved without any additional hemostatic maneuvers. The area was copiously irrigated multiple times until completely clear and there was minimal spillage of bowel throughout t he procedure and the irrigation was completely clear. The patient was positioned in neutral position , irrigated once again, and suctioned out until completely dry and the fluid was clear. The umbilica l trocar was then removed. The umbilical trocar site was closed using a Buddy-Rose suture passe r with an 0 Vicryl in an interrupted fashion with good approximation of tissues. The abdomen was com pletely desufflated under direct visualization without evidence of complication and the trocars were then removed under direct visualization. All skin incisions were copiously irrigated and closed with a 4-0 Monocryl in a running fashion with Dermabond placed over the top. The patient tolerated the p rocedure well without evidence of complication and transferred to PACU in good condition. All counts were correct at the end of the ca se. JACKELYN/LISA Voice ID: [id number] Report ID: [id number]
[2017-10-09 11:38] VITALS: BP 131/73; TEMP 98.9; O2SAT 97
[2017-10-09] MEDS: CIPROFLOXACIN 400mg IV 400 MG/200 ML BAG IV SCH (12:37)
--- NOTE | 2017-10-09 14:04 | DS ---
Date of Discharge: 10/09/2017 Consultants: Dr. Wooten with General Surgery, Dr. Ardon with GI. Procedures: ERCP on 10/08/2017, papillotomy and dilatation of papula, removal of multiple stones, 8. 5-[place] 5 cm stent placement, intraoperative supervision, interpretation of biliary x-ray and fluoro scopy procedure on 10/09/2017, laparoscopic cholecystectomy by Dr. Wooten. Admitting Diagnoses: 1.Cholangitis. 2.Dilated common bile duct. Discharge Diagnoses: 1.Cholelithiasis with choledocholithiasis. 2.Right upper quadrant abdominal pain. 3.Dilated common bile duct. 4.Obesity, BMI 33.9. 5.Gastroesophageal reflux disease without esophagitis. Hospital Course: The patient is a 32-year-old female, came in with abdominal pain in the right upper quadrant. The patient does have known gallbladder disease. Imaging studies were done, which reveal ed cholelithiasis and also showed dilated common bile duct, but no obvious stone. The patient was ad mitted to the hospital for possible cholangitis, cholecystitis, and IV antibiotics were initiated. I V fluids were also initiated. The patient's liver enzymes were elevated. She was seen by GI, Dr. Me marmolejo. MRCP was done, which did not show any stones; however, ERCP was done due to clinical signs and s ymptoms, and multiple stones were extracted and stent was placed. Please see details as mentioned ab ove. The patient then was seen by Dr. Wooten, who recommended cholecystectomy. The patient tolerat ed the procedure well. On the day of discharge, the patient's pain resolved. She was doing signific antly better, did not have any further nausea or vomiting. The patient was then cleared for discharg e from GI and surgical standpoint. She was able to tolerate the diet. Diet: Boss. Followup: Follow up with PCP in 2-3 days. Follow up with GI, Dr. Ardon in 2 weeks. Follow up with Caroline Wooten in 7-10 days for wound check. Return to ER for worsening condition. Activity: No driving or operating heavy machinery while on narcotics. No lifting more than 10 pound s. Medications: As per medication reconciliation list. Physical Examination: General: Awake, alert, oriented, no acute distress. Obese female, BMI 33. CV: S1, S2. No murmurs. Respiratory: Clear to auscultation bilaterally. No wheezing. Gastrointestinal: Abdomen is soft, nontender, nondistended. Incision site clean, dry, intact. Extremities: No clubbing, cyanosis, edema. Neurologic: Nonfocal. Total time spent discharging the patient was 35 minutes. /LISA Voice ID: [id number] Report ID: [id number]
--- NOTE | 2017-10-16 10:46 | RAD REPORT ---
EXAM DESCRIPTION: RADFluoroscopy ERCP10/12/2017 2:31 pm CLINICAL HISTORY: Abdominal pain FINDINGS: The examination was performed by Dr. Ardon. The cystic duct was cannulated and contrast ad ministered. Multiple filling defects within the common bile duct likely represent stones. Contrast within the duo denum is not seen. Subsequently a stent was placed. Three fluoroscopic spot images are submitted
== END 2017-10-09 15:10 | disposition home or self-care (01) | DRG 419 ==
LOC: ER 18:53 → ERHOLD 21:11 → 2ND 21:50
PROVIDERS: ADMIT Internal Medicine; ATTEND Family Medicine
PROC: 0FC98ZZ Extirpation of Matter from Common Bile Duct, Via Natural or Artificial Opening Endoscopic (ICD-10-PCS; 2017-10-08)
PROC: 0F798DZ Dilation of Common Bile Duct with Intraluminal Device, Via Natural or Artificial Opening Endoscopic (ICD-10-PCS; 2017-10-08)
PROC: BF101ZZ Fluoroscopy of Bile Ducts using Low Osmolar Contrast (ICD-10-PCS; 2017-10-08)
PROC: 0FT44ZZ Resection of Gallbladder, Percutaneous Endoscopic Approach (ICD-10-PCS; principal; 2017-10-09 09:45)
DX: K80.63 Calculus of gallbladder and bile duct with acute cholecystitis with obstruction (principal); E66.9 Obesity, unspecified; Z68.33 Body mass index [BMI] 33.0-33.9, adult; K21.9 Gastro-esophageal reflux disease without esophagitis; K83.8 Other specified diseases of biliary tract; F17.290 Nicotine dependence, other tobacco product, uncomplicated; F32.9 Major depressive disorder, single episode, unspecified; Z88.1 Allergy status to other antibiotic agents; Z91.018 Allergy to other foods; Z88.5 Allergy status to narcotic agent
CPT/HCPCS: 36415; 74181; 76705; 80048; 80053; 80076; 81003; 81015; 81025; 83690; 84132; 85025; 87086; 87088; 88304; 96361; 96374; 96375; 99285; C1769; C2625; C9113; J0744; J1580; J2175; J2250; J2270; J2405; J2550; J7030

== ENCOUNTER 2018-03-23 15:08 | Emergency (ER) | payer OTHER ==
--- OUTSIDE RECORDS SUMMARY | 2018-03-23 15:10 | XMS REPORT | Encounter Summary ---
:1985 Author Reason for Visit Confirmation of Instructions 1. Urine test positive test, urine 2. Mild hyperemesis-not delivered Reglan 10 mg tablet folic acid 1 mg tablet Discussion Note: None recorded.Patient educational handouts: No information available. Plan of Care Reminders Provider Appointments OB Sono Sonogram 03/29/2018 1:45PM New OB Mike Mi, Patient 03/29/2018 1:45PM Lab In-House Results Test, Urine 03/16/2018 Referral None recorded. Procedures None recorded. Surgeries None recorded. Imaging None recorded. Medications Name Start Date folic acid 1 mg tablet Take 1 tablet every day by oral route. Reglan 10 mg tablet Take 1 tablet 4 times a day by oral route. Medications Administered None recorded. Vitals Height Weight BMI Blood Pressure 5 ft 5 in 175 lbs 29.1 kg/m2 124/80 mm[Hg] Lab Results Date Name Specimen Result Interpretation Description Value Range Status Address 03/16/2018 Urine positive In-House Test, Urine clean Test Results: catch For Internal Use Only Allergies Code Code System Name Reaction Severity Status Onset 723 RxNorm Amoxicillin Active 4419 RxNorm Fish Oil Active Problems Name Status Onset Date Source Mild Hyperemesis-not Delivered Active 03/16/2018 Active 03/16/2018 Procedures Date Name Performed by 02/05/2018 Colonoscopy Information not available Vaccine List None recorded. Social History Smoking Status Current Every Day Smoker Past Encounters 03/16/2018 Urine Test Positive; Mild Hyperemesis-not Delivered Mike Mi MD: [address] [place] [address], Ph. [phone] History of Present Illness None recorded. Review of Systems None recorded. Physical Exam None recorded.
[2018-03-23] MEDS ORDERED: NA CHLORIDE 0.9% 1,000 ML ONE ×2 (16:56→17:59)
[2018-03-23] MEDS ORDERED: ONDANSETRON 4 MG/2 ML VIAL ONE ×2 (16:56→18:43)
[2018-03-23 16:59] LABS: Absolute Lymphocytes (CBC) 0.6 K/uL (0.7-4.9); Absolute Monocytes 0.2 K/uL (0.1-1.3); Absolute Neutrophil 12.9 K/uL (1.8-8.0); Basophils % 1.7 % (0-1.3); Hematocrit 41.4 % (36.0-45.0); Lymphocytes % 4.5 % (15.3-44.8); MPV 8.5 fL (7.6-11.3); Monocytes % 1.5 % (3.3-12.3); RBC Red Blood Cell Count 4.86 M/uL (3.86-4.86)
[2018-03-23 17:15] LABS: Bilirubin Direct 0.2 mg/dL (0-0.2); Bilirubin Total 0.6 mg/dL (0.2-1.0); Potassium 3.1 mmol/L (3.5-5.1); Protein, Total 8.1 g/dL (6.4-8.2)
[2018-03-23] MEDS ORDERED: POTASSIUM CL SA 10 MEQ TAB PO ONE (18:27)
[2018-03-23 19:03] LABS: Blood Morphology Comment NOT SEEN (NOT SEEN); Platelet Estimate ADEQ
[2018-03-23 19:06] LABS: Urine Bacteria <20 /HPF (<20); Urine Culture Reflex Order NOT NEEDED; Urine Mucus 3+ /HPF (NONE SEEN); Urine RBC <5 /HPF (NONE SEEN)
[2018-03-23] MEDS ORDERED: PROMETHAZINE 25 MG/ML VIAL ONE (19:14)
--- NOTE | 2018-03-23 20:30 | ER ---
Nurse's Notes [facility] Name: Ruchi Stafford Age: 32 yrs Sex: Female : 1985 Arrival Date: 03/23/2018 Time: 15:09 Bed 25 Private MD: Gilmar Esteban E Diagnosis: Hyperemesis gravidarum with metabolic disturbance;Hypokalemia Presentation: 03/23 15:40 Presenting complaint: Patient states: N/V/D that has increased over past 3 days. aj Patient reports taking phenergan 50 mg suppository this AM [employer]. Patient is daily chronic marijuana user. 8 weeks , reportedly. Denies vaginal bleeding. Sipping sprite in triage. Transition of care: patient was not received from another setting of care. Onset of symptoms was March 20, 2018. Risk Assessment: Do you want to hurt yourself or someone else? Patient reports no desire to harm self or others. Initial Sepsis Screen: Does the patient meet any 2 criteria? No. Patient's initial sepsis screen is negative. Does the patient have a suspected source of infection? No. Patient's initial sepsis screen is negative. Care prior to arrival: None. 15:40 Method Of Arrival: Wheelchair 15:40 Acuity: MELY 3 aj Triage Assessment: 15:44 General: Appears in no apparent distress. Behavior is calm, cooperative. Pain: Denies aj pain. Neuro: Level of Consciousness is awake, alert, obeys commands, Oriented to person, place, time, situation, Appropriate for age. Respiratory: Airway is patent Respiratory effort is even, unlabored, Respiratory pattern is regular, symmetrical. GI: Reports diarrhea, nausea, vomiting. Derm: Skin is intact, is healthy with good turgor, Skin is pink, warm \T\ dry. normal. 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 - Social history:: Smoking status: Patient uses tobacco products, smokes one-half pack cigarettes per day, Patient uses street drugs, marijuana. - Ebola Screening: : Patient negative for fever greater than or equal to 101.5 degrees Fahrenheit, and additional compatible Ebola Virus Disease symptoms Patient denies exposure to infectious person Patient denies travel to an Ebola-affected area in the 21 days before illness onset No symptoms or risks identified at this time. Screenin:08 Abuse screen: Denies threats or abuse. Denies injuries from another. Nutritional rv screening: No deficits noted. Tuberculosis screening: No symptoms or risk factors identified. Fall Risk None identified. Assessment: 17:07 General: Appears in no apparent distress. uncomfortable, Behavior is calm, cooperative. rv Pain: Complains of pain in abdomen. Neuro: Level of Consciousness is awake, alert, obeys commands, Oriented to person, place, time, situation. Cardiovascular: Capillary refill < 3 seconds. Respiratory: Airway is patent. GI: Abdomen is round. : No deficits noted. No signs and/or symptoms were reported regarding the genitourinary system. EENT: No signs and/or symptoms were reported regarding the EENT system. Derm: Skin is intact. Musculoskeletal: No signs and/or symptoms reported regarding the musculoskeletal system. 20:03 Reassessment: Patient appears in no apparent distress at this time. rv Vital Signs: 15:45 BP 120 / 72; Pulse 76; Resp 20; Temp 97.8; Pulse Ox 100% on R/A; Weight 79.38 kg; aj Height 5 ft. 5 in. (165.10 cm); 17:00 BP 127 / 78; Pulse 52; Resp 16 S; Pulse Ox 100% on R/A; rv 17:30 BP 106 / 75; Pulse 59; Resp 20 S; Pulse Ox 100% on R/A; rv 18:00 BP 94 / 50; Pulse 68; Resp 19 S; Pulse Ox 100% on R/A; rv 18:45 BP 112 / 82; Pulse 61; Resp 19 S; Pulse Ox 100% on R/A; rv 19:30 BP 110 / 57; Pulse 59 MON; Resp 18 S; Pulse Ox 99% on R/A; rv 20:00 BP 95 / 49; Pulse 63; Resp 18; Pulse Ox 99% ; rv 20:30 BP 90 / 43; Pulse 63; Resp 17 S; Pulse Ox 99% on R/A; rv 20:45 BP 95 / 51; Pulse 65; Resp 19 S; Pulse Ox 98% on R/A; rv 15:45 Body Mass Index 29.12 (79.38 kg, 165.10 cm) aj ED Course: 15:09 Patient arrived in ED. rg4 15:09 Gilmar Esteban MD is Private Physician. rg4 15:43 Triage completed. aj 15:45 Arm band placed on left wrist. Patient placed in waiting room, Patient notified of wait aj time. 16:31 Dionisio Mendoza MD is Attending Physician. tw4 17:00 Inserted saline lock: 18 gauge in left antecubital area, using aseptic technique. Blood rv collected. 17:00 Initial lab(s) drawn, by me, sent to lab. rv 17:07 Basic Metabolic Panel Sent. rv 17:07 CBC with Diff Sent. rv 17:07 Hepatic Function Sent. rv 17:07 Creatinine for Radiology Sent. rv 17:07 Lipase Sent. rv 17:08 Patient has correct armband on for positive identification. Bed in low position. Call rv light in reach. Side rails up X2. Adult w/ patient. Pulse ox on. NIBP on. 18:47 Urine Microscopic Only Sent. rv 20:28 Gilmar Esteban MD is Referral Physician. tw4 20:54 No provider procedures requiring assistance completed. rv 20:55 IV discontinued, bleeding controlled, No redness/swelling at site. Pressure dressing rv applied. Administered Medications: 16:45 Drug: NS 0.9% 1000 ml Route: IV; Rate: 1 bolus; Site: left antecubital; rv 18:16 Follow up: IV Status: Completed infusion rv 16:45 Drug: Zofran 4 mg Route: IVP; Site: left antecubital; rv 18:16 Follow up: Response: Marked relief of symptoms; Nausea is decreased rv 17:56 Drug: NS 0.9% 1000 ml Route: IV; Rate: 1 bolus; Site: left antecubital; rv 18:46 Follow up: IV Status: Completed infusion rv 18:10 Drug: Potassium Chloride 40 mEq Route: PO; rv 20:57 Follow up: Response: No adverse reaction rv 18:30 Drug: Zofran 4 mg Route: IVP; Site: left antecubital; rv 20:56 Follow up: Response: Nausea unchanged rv 18:46 CANCELLED (error): NS 0.9% 1000 ml IV at 1 bolus Per protocol; 1000 mL bolus rv 19:07 Drug: Phenergan 12.5 mg Route: IVP; Site: left antecubital; rv 20:56 Follow up: Response: Nausea is decreased rv Outcome: 20:29 Discharge ordered by tw4 20:56 Discharged to home ambulatory. rv 20:56 Condition: good 20:56 Discharge instructions given to patient, Instructed on discharge instructions, follow up and referral plans. medication usage, Demonstrated understanding of instructions, follow-up care, medications, Prescriptions given X 2. 20:57 Patient left the ED. rv Signatures: Ruchi Thompson, RN RN Kelsie Novoa rg4 Dionisio Mendoza MD MD tw4 Dedrick Blount RN RN rv Corrections: (The following items were deleted from the chart) 15:45 15:40 Presenting complaint: Patient states: N/V/D that has increased over past 3 days. aj Patient reports taking phenergan 50 mg suppository this AM [employer]. Patient is daily chronic marijuana user. 8 weeks , reportedly. Denies vaginal bleeding 16:54 16:52 General: Appears in no apparent distress. comfortable, Behavior is calm, rv cooperative, 16:54 16:52 Pain: Denies pain. [facility] 16:54 16:52 Neuro: Level of Consciousness is awake, alert, obeys commands, Oriented to person, place, time, situation, 16:54 16:52 GI: No signs and/or symptoms were reported involving the gastrointestinal system. rv Abdomen is flat, 16:54 16:53 Reassessment: patient denies any pain. does not want any test done. relayed to CONCHA Michelle. rv
--- NOTE | 2018-03-23 20:30 | EDPHYS ---
Physician Documentation [facility] Name: Ruchi Stafford Age: 32 yrs Sex: Female : 1985 Arrival Date: 03/23/2018 Time: 15:09 Bed 25 Private MD: Gilmar Esteban E ED Physician Dionisio Mendoza HPI: 03/23 21:31 This 32 yrs old Female presents to ER via Wheelchair with complaints of tw4 Vomiting. 21:31 The patient presents to the emergency department with nausea, vomiting. Onset: The tw4 symptoms/episode began/occurred 3 day(s) ago. Possible causes: unknown. The symptoms are aggravated by nothing. The symptoms are alleviated by nothing. Associated signs and symptoms: The patient has no apparent associated signs or symptoms. The patient has not experienced similar symptoms in the past. 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 - Social history:: Smoking status: Patient uses tobacco products, smokes one-half pack cigarettes per day, Patient uses street drugs, marijuana. - Ebola Screening: : Patient negative for fever greater than or equal to 101.5 degrees Fahrenheit, and additional compatible Ebola Virus Disease symptoms Patient denies exposure to infectious person Patient denies travel to an Ebola-affected area in the 21 days before illness onset No symptoms or risks identified at this time. ROS: 21:31 Constitutional: Negative for fever, chills, and weight loss, Neck: Negative for injury, tw4 pain, and swelling, Cardiovascular: Negative for chest pain, palpitations, and edema, Respiratory: Negative for shortness of breath, cough, wheezing, and pleuritic chest pain, Back: Negative for injury and pain, MS/Extremity: Negative for injury and deformity, Skin: Negative for injury, rash, and discoloration. 21:31 Neuro: Negative for headache, weakness, numbness, tingling, and seizure. 21:31 Abdomen/GI: Positive for nausea and vomiting, nausea, vomiting, and diarrhea, nausea, vomiting, Negative for abdominal pain, constipation, anorexia, dysphagia, black/tarry stool, rectal pain, rectal bleeding. Exam: 21:31 Constitutional: This is a well developed, well nourished patient who is awake, alert, tw4 and in no acute distress. Head/Face: Normocephalic, atraumatic. Chest/axilla: Normal chest wall appearance and motion. Nontender with no deformity. No lesions are appreciated. Cardiovascular: Regular rate and rhythm with a normal S1 and S2. No gallops, murmurs, or rubs. Normal PMI, no JVD. No pulse deficits. Respiratory: Lungs have equal breath sounds bilaterally, clear to auscultation and percussion. No rales, rhonchi or wheezes noted. No increased work of breathing, no retractions or nasal flaring. Back: No spinal tenderness. No costovertebral tenderness. Full range of motion. MS/ Extremity: Pulses equal, no cyanosis. Neurovascular intact. Full, normal range of motion. Neuro: Awake and alert, GCS 15, oriented to person, place, time, and situation. Cranial nerves II-XII grossly intact. Motor strength 5/5 in all extremities. Sensory grossly intact. Cerebellar exam normal. Normal gait. 21:31 Abdomen/GI: Inspection: abdomen appears normal, Bowel sounds: normal, Palpation: abdomen is soft and non-tender. Vital Signs: 15:45 BP 120 / 72; Pulse 76; Resp 20; Temp 97.8; Pulse Ox 100% on R/A; Weight 79.38 kg; aj Height 5 ft. 5 in. (165.10 cm); 17:00 BP 127 / 78; Pulse 52; Resp 16 S; Pulse Ox 100% on R/A; rv 17:30 BP 106 / 75; Pulse 59; Resp 20 S; Pulse Ox 100% on R/A; rv 18:00 BP 94 / 50; Pulse 68; Resp 19 S; Pulse Ox 100% on R/A; rv 18:45 BP 112 / 82; Pulse 61; Resp 19 S; Pulse Ox 100% on R/A; rv 19:30 BP 110 / 57; Pulse 59 MON; Resp 18 S; Pulse Ox 99% on R/A; rv 20:00 BP 95 / 49; Pulse 63; Resp 18; Pulse Ox 99% ; rv 20:30 BP 90 / 43; Pulse 63; Resp 17 S; Pulse Ox 99% on R/A; rv 20:45 BP 95 / 51; Pulse 65; Resp 19 S; Pulse Ox 98% on R/A; rv 15:45 Body Mass Index 29.12 (79.38 kg, 165.10 cm) aj MDM: 16:37 Patient medically screened. tw4 21:31 Differential diagnosis: Nonspecific abd pain, gastritis. Data reviewed: vital signs, tw4 nurses notes. Data interpreted: Pulse oximetry: Interpretation: normal. Counseling: I had a detailed discussion with the patient and/or guardian regarding: the historical points, exam findings, and any diagnostic results supporting the discharge/admit diagnosis. Medication response: Phenergan markedly relieved the patient's nausea, Zofran partially relieved the patient's nausea. Response to treatment: the patient's symptoms have resolved after treatment, and as a result, I will discharge patient. Special discussion: Based on the patient's Hx, exam, and Dx evaluation, there is no indication for emergent surgery or inpatient Tx. It is understood by the patient/guardian that if the Sx's persist or worsen they need to return immediately for re-evaluation. I discussed with the patient/guardian in detail that at this point there is no indication for admission to the hospital. It is understood, however, that if the symptoms persist or worsen the patient needs to return immediately for re-evaluation. 03/23 16:38 Order name: Basic Metabolic Panel; Complete Time: 17:38 tw4 03/23 17:38 Interpretation: Normal except: K 3.1; GLUC 117; CO2 19; GFR 85. tw4 03/23 16:38 Order name: CBC with Diff tw4 03/23 17:36 Interpretation: Normal except: WBC 14.0; MCV 85.0; ARIANA% 92.3; LYM% 4.5; MN% 1.5; BASO% tw4 1.7; NEUT A 12.9. 03/23 16:38 Order name: Creatinine for Radiology; Complete Time: 17:36 tw4 03/23 17:36 Interpretation: Within normal limits: CRE 0.79; GFR 85. tw4 03/23 16:38 Order name: Hepatic Function; Complete Time: 17:36 tw4 03/23 17:36 Interpretation: Normal except: AST 9; GLOB 4.1; A/G 1.0. [facility] 03/23 16:38 Order name: Lipase; Complete Time: 17:36 tw4 03/23 17:36 Interpretation: Within normal limits: LIP 78. tw 03/23 16:38 Order name: Urine Microscopic Only [facility] 03/23 18:12 Order name: Urine Dipstick--Ancillary (enter results) 03/23 18:12 Order name: Urine --Ancillary (enter results) 03/23 19:04 Order name: Manual Differential EDMS 03/23 16:38 Order name: IV Saline Lock; Complete Time: 17:06 tw4 03/23 16:38 Order name: Labs collected and sent; Complete Time: 17:07 tw4 03/23 16:38 Order name: Urine Dipstick-Ancillary (obtain specimen); Complete Time: 18:47 tw4 03/23 16:38 Order name: Urine Test (obtain specimen); Complete Time: 18:47 tw4 Administered Medications: 16:45 Drug: NS 0.9% 1000 ml Route: IV; Rate: 1 bolus; Site: left antecubital; rv 18:16 Follow up: IV Status: Completed infusion rv 16:45 Drug: Zofran 4 mg Route: IVP; Site: left antecubital; rv 18:16 Follow up: Response: Marked relief of symptoms; Nausea is decreased rv 17:56 Drug: NS 0.9% 1000 ml Route: IV; Rate: 1 bolus; Site: left antecubital; rv 18:46 Follow up: IV Status: Completed infusion rv 18:10 Drug: Potassium Chloride 40 mEq Route: PO; rv 20:57 Follow up: Response: No adverse reaction rv 18:30 Drug: Zofran 4 mg Route: IVP; Site: left antecubital; rv 20:56 Follow up: Response: Nausea unchanged rv 18:46 CANCELLED (error): NS 0.9% 1000 ml IV at 1 bolus Per protocol; 1000 mL bolus rv 19:07 Drug: Phenergan 12.5 mg Route: IVP; Site: left antecubital; rv 20:56 Follow up: Response: Nausea is decreased rv Disposition: 03/23/18 20:29 Discharged to Home. Impression: Hyperemesis gravidarum with metabolic disturbance, Hypokalemia. - Condition is Stable. - Discharge Instructions: Hyperemesis Gravidarum, Eating Plan for Hyperemesis Gravidarum, Hypokalemia. - Prescriptions for Diclegis 10- 10 mg Oral tablet,delayed release (DR/EC) - take 1 tablet by ORAL route once daily; 10 tablet. Zofran 4 mg Oral Tablet - take 1 tablet by ORAL route every 12 hours As needed; 6 tablet. - Medication Reconciliation Form, Thank You Letter, Antibiotic Education, Prescription Opioid Use form. - Follow up: Gilmar Esteban MD; When: Upon discharge from the Emergency Department; Reason: If symptoms return, Recheck today's complaints, Continuance of care. - Problem is new. - Symptoms have improved. Signatures: Dispatcher [employer] EDMS Ruchi Thompson RN RN Dionisio Odell MD MD tw4 Dedrick Blount RN RN rv Corrections: (The following items were deleted from the chart) 18:46 18:46 NS 0.9% 1000 ml IV at 1 bolus Per protocol; 1000 mL bolus ordered. rv rv 20:57 20:29 03/23/2018 20:29 Discharged to Home. Impression: Hyperemesis gravidarum with rv metabolic disturbance; Hypokalemia. Condition is Stable. Forms are Medication Reconciliation Form, Thank You Letter, Antibiotic Education, Prescription Opioid Use. Follow up: Gilmar Esteban; When: Upon discharge from the Emergency Department; Reason: If symptoms return, Recheck today's complaints, Continuance of care. Problem is new. Symptoms have improved. tw4
[2018-03-23 21:32] LABS: Urine Blood NEGATIVE (NEG); Urine Glucose NEGATIVE (NEG); Urine Protein 2+ (NEG); Urine Specific Gravity >1.030 (1.005-1.030)
[2018-03-23 22:06] VITALS: BP 95/51; O2SAT 98
[2018-03-25 23:16] VITALS: TEMP 97.8
== END 2018-03-23 20:57 | disposition home or self-care (01) ==
LOC: ER 15:08
DX: O21.1 Hyperemesis gravidarum with metabolic disturbance (principal); E87.6 Hypokalemia; O99.330 Smoking (tobacco) complicating pregnancy, unspecified trimester; F17.210 Nicotine dependence, cigarettes, uncomplicated; Z3A.00 Weeks of gestation of pregnancy not specified; Z88.1 Allergy status to other antibiotic agents; Z91.013 Allergy to seafood
CPT/HCPCS: 36415; 80048; 80076; 81003; 81015; 81025; 83690; 85025; 96361; 96374; 96375; 99284; J2405; J2550; J7030

== ENCOUNTER 2018-03-27 17:46 | Observation (INO) | payer OTHER ==
[2018-03-27] MEDS ORDERED: METOCLOPRAMIDE 10 MG/2mL INJ ONE (18:39)
[2018-03-27] MEDS ORDERED: DIPHENHYDRAMINE 50 MG/ML VIAL ONE (18:39)
[2018-03-27] MEDS ORDERED: NA CHLORIDE 0.9% 1,000 ML ONE (18:39)
[2018-03-27 18:52] LABS: Absolute Monocytes 0.9 K/uL (0.1-1.3); Absolute Neutrophil 9.3 K/uL (1.8-8.0); Basophils % 0.3 % (0-1.3); Eosinophils % 0.1 % (0-4.4); Hematocrit 37.9 % (36.0-45.0); Lymphocytes % 22.6 % (15.3-44.8); MPV 8.4 fL (7.6-11.3); Monocytes % 6.8 % (3.3-12.3); RBC Red Blood Cell Count 4.53 M/uL (3.86-4.86)
[2018-03-27 19:12] LABS: ALT/SGPT 66 U/L (12-78); AST/SGOT 15 U/L (15-37); Albumin 3.6 g/dL (3.4-5.0); Alkaline Phosphatase 54 U/L (45-117); BUN Blood Urea Nitrogen 7 mg/dL (7-18); Bicarbonate 22 mmol/L (21-32); Bilirubin Direct 0.2 mg/dL (0-0.2); Bilirubin Total 0.7 mg/dL (0.2-1.0); Glucose Level 77 mg/dL (74-106); Lipase 128 U/L (73-393); Protein, Total 7.3 g/dL (6.4-8.2); Sodium Level 136 mmol/L (136-145)
[2018-03-27 19:14] LABS: Potassium 2.5 mmol/L (3.5-5.1)
[2018-03-27] MEDS ORDERED: KCL 20 MEQ/100 mL IVPB 20 MEQ/100 ML BAG IV ONE (19:34)
--- NOTE | 2018-03-27 19:47 | RAD REPORT ---
EXAM DESCRIPTION: US - Pelvis Complete - 03/27/2018 7:35 pm CLINICAL HISTORY: Pelvic pain COMPARISON: None FINDINGS: The uterus measures 9 x 6 x 8 centimeters. A gestational sac is present within the endomet rium. Within this is a yolk sac and pole which measures 1.6 centimeters. Cardiac activity 168 b eats per minute. 2.3 centimeter right ovarian cyst is present. Left ovary normal in size and echotexture. No significa nt free fluid IMPRESSION: Single live intrauterine with an estimated gestational age 8 weeks 0 days ERICKA 11/06/2018
[2018-03-27] MEDS ORDERED: ONDANSETRON 4 MG/2 ML VIAL ONE (20:06)
[2018-03-27 21:09] LABS: Urine Bacteria 20-50 /HPF (<20); Urine Mucus 1+ /HPF (NONE SEEN); Urine RBC NONE SEEN /HPF (NONE SEEN)
[2018-03-27 21:10] LABS: Urine Culture Reflex Order REFLEXED
--- NOTE | 2018-03-27 21:10 | EDPHYS ---
Physician Documentation [facility] Name: Ruchi Stafford Age: 32 yrs Sex: Female : 1985 Arrival Date: 03/27/2018 Time: 17:50 Bed 16 Private MD: ED Physician Kourtney Kovacs HPI: 03/27 18:20 This 32 yrs old Female presents to ER via EMS with complaints of jmm Nausea/Vomiting/Diarrhea. 18:20 The patient presents to the emergency department with nausea, vomiting, diarrhea, jmm abdominal pain, of the epigastric area. Onset: The symptoms/episode began/occurred gradually, 6 day(s) ago. Possible causes: flare up of bowel problem, irritable bowel disease, . The symptoms are aggravated by nothing. The symptoms are alleviated by nothing. Associated signs and symptoms: Pertinent positives: abdominal pain. This is a 32 year old female with a history of IBS, that presents to the ED with epigastric pain, pelvic cramping, vomiting, diarrhea beginning this past Thursday. Patient states having no relief with susana zofran. Patient states she has had similar symptoms with previous ibs flares. Patients states she is currently being seen by Dr. Ardon of [facility]. Patient was concerned when she vomited what she described as a "scab". Patient denies vaginal bleeding but states she is having pelvic cramping. Patient states she has yet to have an US during her . . 20:29 . 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 - Social history:: Smoking status: Patient uses tobacco products, smokes one-half pack cigarettes per day. - Ebola Screening: : Patient denies travel to an Ebola-affected area in the 21 days before illness onset. ROS: 18:20 Constitutional: Negative for fever, chills, and weight loss, Eyes: Negative for injury, jmm pain, redness, and discharge, Cardiovascular: Negative for chest pain, palpitations, and edema, Respiratory: Negative for shortness of breath, cough, wheezing, and pleuritic chest pain. 18:20 Abdomen/GI: Positive for abdominal pain, nausea and vomiting, diarrhea. 18:20 All other systems are negative. Exam: 18:20 Head/Face: atraumatic. Eyes: EOMI, no conjunctival erythema appreciated ENT: Moist jm Mucus Membranes Neck: Trachea midline, Supple Chest/axilla: Normal chest wall appearance and motion. Cardiovascular: Regular rate and rhythm. No edema appreciated Respiratory: Normal respirations, no respiratory distress appreciated 18:20 Constitutional: The patient appears alert, awake, uncomfortable. 18:20 Abdomen/GI: Inspection: abdomen appears normal, Bowel sounds: normal, Palpation: soft, mild abdominal tenderness, in the epigastric area. 18:20 Back: ROM is normal. 18:20 Musculoskeletal/extremity: ROM: intact in all extremities. 18:20 Skin: Appearance: Color: normal in color. 18:20 Neuro: Orientation: is normal, Mentation: is normal, Memory: is normal, Gait: is steady. 18:20 Psych: Behavior/mood is pleasant, cooperative. Vital Signs: 17:54 BP 107 / 65; Pulse 72; Resp 18; Temp 97.8; Pulse Ox 100% on R/A; Weight 74.84 kg (R); aj1 Height 5 ft. 5 in. (165.10 cm) (R); Pain 5/10; 20:30 BP 133 / 84; Pulse 64; Resp 18; Pulse Ox 100% on R/A; jb4 21:33 BP 130 / 76; Pulse 62; Resp 16; Temp 98.2; Pulse Ox 100% on R/A; jb4 17:54 Body Mass Index 27.46 (74.84 kg, 165.10 cm) aj1 MDM: 18:12 Patient medically screened. [facility] 20:23 Data reviewed: vital signs, nurses notes. [facility] 21:07 Counseling: I had a detailed discussion with the patient and/or guardian regarding: the [facility] historical points, exam findings, and any diagnostic results supporting the discharge/admit diagnosis, lab results, radiology results, the need for further work-up and treatment in the hospital. ED course: I discussed the patient with Dr. Burciaga whom accepted admission. . 03/27 18:13 Order name: Basic Metabolic Panel; Complete Time: 19:17 [facility] 03/27 18:13 Order name: CBC with Diff; Complete Time: 18:58 [facility] 03/27 18:13 Order name: Creatinine for Radiology; Complete Time: 19:02 [facility] 03/27 18:13 Order name: Hepatic Function; Complete Time: 19:17 [facility] 03/27 18:13 Order name: Lipase; Complete Time: 19:17 [facility] 03/27 19:12 Order name: HCG-Quantitative; Complete Time: 19:54 [facility] 03/27 20:46 Order name: UDS; Complete Time: 21:35 [facility] 03/27 20:46 Order name: Urine Microscopic Only; Complete Time: 21:18 [facility] 03/27 21:04 Order name: Urine Dipstick--Ancillary (enter results); Complete Time: 21:35 [facility] 03/27 21:04 Order name: Urine --Ancillary (enter results); Complete Time: 21:35 [facility] 03/27 21:11 Order name: Urine Culture [facility] 03/27 21:15 Order name: Basic Metabolic Panel [facility] 03/27 21:15 Order name: Basic Metabolic Panel [facility] 03/27 21:15 Order name: CBC with Automated Diff [facility] 03/27 18:13 Order name: IV Saline Lock; Complete Time: 18:34 [facility] 03/27 18:13 Order name: Labs collected and sent; Complete Time: 18:34 [facility] 03/27 18:13 Order name: US Pelvis Complete; Complete Time: 19:49 [facility] 03/27 21:15 Order name: NPO [facility] 03/27 21:15 Order name: CBC with Automated Diff [facility] 03/27 21:15 Order name: Lipase [facility] 03/27 21:15 Order name: Lipase [facility] 03/27 21:15 Order name: Liver (Hepatic) Function [facility] 03/27 21:15 Order name: Liver (Hepatic) Function [facility] 03/27 18:13 Order name: Urine Dipstick-Ancillary (obtain specimen); Complete Time: 20:49 [facility] 03/27 20:26 Order name: PO challenge; Complete Time: 20:43 [facility] Administered Medications: 18:33 Drug: NS 0.9% 1000 ml Route: IV; Rate: 1 bolus; Site: left antecubital; aj1 22:06 Follow up: Response: No adverse reaction; IV Status: Infusion continued upon admission jb4 18:33 Drug: Reglan 10 mg Route: IVP; Site: left antecubital; aj1 19:50 Follow up: Response: Nausea unchanged jb4 18:34 Drug: diphenhydrAMINE 12.5 mg Route: IVP; Site: left antecubital; aj1 20:36 Follow up: Response: No adverse reaction jb4 19:45 Drug: Potassium Chloride 20 mEq Route: IV; Rate: calculated rate; Site: left jb4 antecubital; 22:05 Follow up: Response: No adverse reaction; IV Status: Completed infusion jb4 19:58 Drug: Zofran 8 mg Route: IVP; Site: left antecubital; jb4 20:37 Follow up: Response: No adverse reaction; Nausea is decreased jb4 22:04 Drug: ProTONIX 40 mg Route: IVP; Site: left antecubital; jb4 22:05 Follow up: Response: No adverse reaction jb4 Disposition: 03/27/18 21:10 Hospitalization ordered by June Moralez for Observation. Preliminary diagnosis is Hyperemesis gravidarum with metabolic disturbance. - [facility]. - Status is Observation. jb4 - Condition is Stable. - Problem is an acute exacerbation. - Symptoms are unchanged. UTI on Admission? No Addendum: 04/08/2018 02:51 Co-signature as Attending Physician, Kourtney Kovacs MD. m a2 Signatures: Dispatcher [employer] EDSC Emily Barlow RN RN aj1 Arlene Rodriguez RN RN mw Mickail, Joel, PA PA jmm Bryson, James, RN RN jb4 Kourtney Kovacs MD MD ma2 Corrections: (The following items were deleted from the chart) 03/27 18:41 18:14 Abdomen Limited+US.RAD.BRZ ordered. EDSC EDSC 21:22 21:10 Hospitalization Ordered by June Moralez MD for Observation. Preliminary diagnosis mw is Hyperemesis gravidarum with metabolic disturbance. Bed requested for [facility]. Status is Observation. Condition is Stable. Problem is an acute exacerbation. Symptoms are unchanged. UTI on Admission? No. kendal 22:12 21:22 03/27/2018 21:10 Hospitalization Ordered by June Moralez MD for Observation. jb4 Preliminary diagnosis is Hyperemesis gravidarum with metabolic disturbance. Bed requested for [facility]. Status is Observation. Condition is Stable. Problem is an acute exacerbation. Symptoms are unchanged. UTI on Admission? No. mw
--- NOTE | 2018-03-27 21:10 | ER ---
Nurse's Notes [facility] Name: Ruchi Stafford Age: 32 yrs Sex: Female : 1985 Arrival Date: 03/27/2018 Time: 17:50 Bed 16 Private MD: Diagnosis: Hyperemesis gravidarum with metabolic disturbance Presentation: 03/27 17:51 Presenting complaint: Patient states: N/V/D for the past week and a half. Reports that aj1 she has been taking Zofran at home with no relief. She called EMS today, because she threw up something red. Patient reports eating red jello earlier today. Patient also reports cramps to both hands. Patient is currently 9 weeks . Transition of care: patient was not received from another setting of care. Onset of symptoms was February 2018. Risk Assessment: Do you want to hurt yourself or someone else? Patient reports no desire to harm self or others. Initial Sepsis Screen: Does the patient meet any 2 criteria? No. Patient's initial sepsis screen is negative. Does the patient have a suspected source of infection? No. Patient's initial sepsis screen is negative. Care prior to arrival: None. 17:51 Method Of Arrival: EMS: [facility] aj1 17:51 Acuity: MELY 3 aj1 Triage Assessment: 17:54 General: Appears in no apparent distress. uncomfortable, Behavior is cooperative, aj1 anxious. Pain: Complains of pain in right upper quadrant. GI: Reports diarrhea, nausea, vomiting. 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 - Social history:: Smoking status: Patient uses tobacco products, smokes one-half pack cigarettes per day. - Ebola Screening: : Patient denies travel to an Ebola-affected area in the 21 days before illness onset. Screenin:56 Abuse screen: Denies threats or abuse. Denies injuries from another. Nutritional aj1 screening: No deficits noted. Tuberculosis screening: No symptoms or risk factors identified. 19:00 Fall Risk IV access (20 points). Total Merino Fall Scale indicates No Risk (0-24 pts). jb4 Assessment: 17:56 General: Appears in no apparent distress. uncomfortable, Behavior is cooperative, aj1 anxious. Pain: Complains of pain in right upper quadrant Pain does not radiate. Pain currently is 5 out of 10 on a pain scale. Aggravated by vomiting. Neuro: Level of Consciousness is awake, alert, obeys commands, Oriented to person, place, time, situation. Cardiovascular: Patient's skin is warm and dry. Respiratory: Airway is patent Respiratory effort is even, unlabored, Respiratory pattern is regular, symmetrical. GI: Abdomen is non-distended, Bowel sounds present X 4 quads. Reports upper abdominal pain, diarrhea, nausea, vomiting. : No signs and/or symptoms were reported regarding the genitourinary system. EENT: No signs and/or symptoms were reported regarding the EENT system. Derm: No signs and/or symptoms reported regarding the dermatologic system. Skin is pink, warm \T\ dry. normal. Musculoskeletal: No signs and/or symptoms reported regarding the musculoskeletal system. Capillary refill. 19:00 Reassessment: Pt is at ultrasound. jb4 19:50 Reassessment: Patient appears in no apparent distress at this time. Patient and/or jb4 family updated on plan of care and expected duration. Pain level reassessed. Patient is alert, oriented x 3, equal unlabored respirations, skin warm/dry/pink. Pt actively vomiting, Physician notified, see [facility] for orders. 20:38 Reassessment: Patient appears in no apparent distress at this time. Patient and/or jb4 family updated on plan of care and expected duration. Pain level reassessed. Patient is alert, oriented x 3, equal unlabored respirations, skin warm/dry/pink. 21:33 Reassessment: Patient appears in no apparent distress at this time. Patient and/or jb4 family updated on plan of care and expected duration. Pain level reassessed. Patient is alert, oriented x 3, equal unlabored respirations, skin warm/dry/pink. Vital Signs: 17:54 BP 107 / 65; Pulse 72; Resp 18; Temp 97.8; Pulse Ox 100% on R/A; Weight 74.84 kg (R); aj1 Height 5 ft. 5 in. (165.10 cm) (R); Pain 5/10; 20:30 BP 133 / 84; Pulse 64; Resp 18; Pulse Ox 100% on R/A; jb4 21:33 BP 130 / 76; Pulse 62; Resp 16; Temp 98.2; Pulse Ox 100% on R/A; jb4 17:54 Body Mass Index 27.46 (74.84 kg, 165.10 cm) [facility] ED Course: 17:50 Patient arrived in ED. aj1 17:53 Triage completed. aj1 17:54 Arm band placed on Patient placed in an exam room. aj1 17:56 Patient has correct armband on for positive identification. Bed in low position. Call [facility] light in reach. Side rails up X 1. 17:56 No provider procedures requiring assistance completed. aj1 17:57 Srikanth Hahn PA is PHCP. [facility] 17:57 Kourtney Kovacs MD is Attending Physician. [facility] 18:16 Emily Barlow RN is Primary Nurse. aj1 18:32 Initial lab(s) drawn, by wv, sent to lab. Inserted saline lock: 22 gauge in left dh3 antecubital area, using aseptic technique. Blood collected. 19:31 Ultrasound completed. Patient tolerated well. sg3 19:35 US Pelvis Complete In Process Unspecified. EDMS 21:08 June Moralez MD is Hospitalizing Provider. jmm 22:10 Patient admitted, IV remains in place. 4 Administered Medications: 18:33 Drug: NS 0.9% 1000 ml Route: IV; Rate: 1 bolus; Site: left antecubital; aj1 22:06 Follow up: Response: No adverse reaction; IV Status: Infusion continued upon admission jb4 18:33 Drug: Reglan 10 mg Route: IVP; Site: left antecubital; aj1 19:50 Follow up: Response: Nausea unchanged jb4 18:34 Drug: diphenhydrAMINE 12.5 mg Route: IVP; Site: left antecubital; aj1 20:36 Follow up: Response: No adverse reaction 4 19:45 Drug: Potassium Chloride 20 mEq Route: IV; Rate: calculated rate; Site: left 4 antecubital; 22:05 Follow up: Response: No adverse reaction; IV Status: Completed infusion jb4 19:58 Drug: Zofran 8 mg Route: IVP; Site: left antecubital; jb4 20:37 Follow up: Response: No adverse reaction; Nausea is decreased jb4 22:04 Drug: ProTONIX 40 mg Route: IVP; Site: left antecubital; jb4 22:05 Follow up: Response: No adverse reaction jb4 Outcome: 21:10 Decision to Hospitalize by Provider. kendal 22:07 Admitted to L \T\ D, accompanied by tech, via stretcher, room 279, with chart. jb4 22:07 Condition: stable 22:07 Discharge instructions given to patient, Instructed on the need for admit, Demonstrated understanding of instructions. 22:12 Patient left the ED. jb4 Signatures: Dispatcher [employer] EDMS Emily Barlow, RN RN aj1 Srikanth Hahn PA PA jmm Bryson, James, RN RN jb4 Tiffany Gore 3 Melania Chen 3 Corrections: (The following items were deleted from the chart) 19:12 19:09 Pulse 120bpm; Resp 32bpm; Pulse Ox 100% RA; jb4 jb4 19:12 19:09 Reassessment: Patient appears in no apparent distress at this time. Patient jb4 and/or family updated on plan of care and expected duration. Pain level reassessed. Patient is alert/active/playful, equal unlabored respirations, skin warm/dry/pink. Pt is being held by the mother. Father is at the bedside. jb4
[2018-03-27] MEDS ORDERED: ONDANSETRON 4 MG/2 ML VIAL IV PRN (21:13)
[2018-03-27 21:17] LABS: Barbiturates NEGATIVE (NEGATIVE); Benzodiazepines NEGATIVE (NEGATIVE); Cocaine NEGATIVE (NEGATIVE); METHAMPHETAM NEGATIVE (NEGATIVE); Methadone NEGATIVE (NEGATIVE); Opiates NEGATIVE (NEGATIVE); Phencyclidine NEGATIVE (NEGATIVE); THC Cannibis POSITIVE (NEGATIVE)
[2018-03-27 21:21] LABS: Urine Blood NEGATIVE (NEG); Urine Glucose NEGATIVE (NEG); Urine Protein 1+ (NEG); Urine Specific Gravity >1.030 (1.005-1.030)
[2018-03-27] MEDS ORDERED: D5 0.45 NS 1,000 ML IV SCH (22:00)
[2018-03-27] MEDS ORDERED: PANTOPRAZOLE 40 MG INJ ONE (22:06)
[2018-03-27 22:22] VITALS: O2SAT 100
[2018-03-27 22:51] VITALS: BMI 27.4
[2018-03-27] MEDS ORDERED: Ringers Lactate 1,000 ML IV SCH (23:00)
[2018-03-28] MEDS: PROMETHAZINE 25 MG/ML VIAL IV PRN ×2 (02:25→08:35)
[2018-03-28] MEDS: ACETAMINOPHEN 500 MG TAB PO PRN ×2 (02:25→13:46)
[2018-03-28 06:11] LABS: Absolute Lymphocytes (CBC) 2.2 K/uL (0.7-4.9); Absolute Monocytes 0.7 K/uL (0.1-1.3); Absolute Neutrophil 8.2 K/uL (1.8-8.0); Basophils % 0.3 % (0-1.3); Hematocrit 35.6 % (36.0-45.0); MPV 8.5 fL (7.6-11.3); RBC Red Blood Cell Count 4.26 M/uL (3.86-4.86)
[2018-03-28 07:03] LABS: ALT/SGPT 52 U/L (12-78); AST/SGOT 11 U/L (15-37); Albumin 3.2 g/dL (3.4-5.0); Alkaline Phosphatase 50 U/L (45-117); BUN Blood Urea Nitrogen 7 mg/dL (7-18); Bicarbonate 19 mmol/L (21-32); Bilirubin Direct 0.2 mg/dL (0-0.2); Bilirubin Total 0.7 mg/dL (0.2-1.0); Glucose Level 77 mg/dL (74-106); Lipase 245 U/L (73-393); Protein, Total 6.4 g/dL (6.4-8.2); Sodium Level 136 mmol/L (136-145)
[2018-03-28 07:05] LABS: Potassium 2.9 mmol/L (3.5-5.1)
[2018-03-28] MEDS ORDERED: KCL 20 MEQ/100 mL IVPB 20 MEQ/100 ML BAG IV SCH (10:00)
[2018-03-28] MEDS ORDERED: SODIUM CHLORIDE 0.9% 10ML INJ IV PRN (10:01)
[2018-03-28] MEDS ORDERED: PANTOPRAZOLE 40 MG INJ IVP ONE (10:26)
[2018-03-28 13:48] VITALS: BP 119/60; TEMP 99
--- NOTE | 2018-03-28 20:15 | P.DS ---
Admission Date: 03/27/18 Discharge Date: 03/28/18 Disposition: ROUTINE DISCHARGE Discharge Condition: GOOD Vital Signs/Physical Exam: Temp Pulse Resp BP Pulse Ox 99.0 F 57 18 119/60 03/28/18 20:15 03/28/18 20:15 03/28/18 20:15 03/28/18 20:15 Laboratory Data at Discharge: WBC 11.1 K/uL (4.3-10.9) H D 03/28/18 05:56 Hgb 12.5 g/dL (12.0-15.0) 03/28/18 05:56 Hct 35.6 % (36.0-45.0) L 03/28/18 05:56 Plt Count 267 K/uL (152-406) 03/28/18 05:56 Sodium 136 mmol/L (136-145) 03/28/18 05:56 Potassium 2.9 mmol/L (3.5-5.1) L* 03/28/18 05:56 BUN 7 mg/dL (7-18) 03/28/18 05:56 Creatinine 0.40 mg/dL (0.55-1.3) L 03/28/18 05:56 Glucose 77 mg/dL (74-106) 03/28/18 05:56 Total Bilirubin 0.7 mg/dL (0.2-1.0) 03/28/18 05:56 AST 11 U/L (15-37) L 03/28/18 05:56 ALT 52 U/L (12-78) 03/28/18 05:56 Alkaline Phosphatase 50 U/L (45-117) 03/28/18 05:56 Lipase 245 U/L (73-393) 03/28/18 05:56 Home Medications: Ondansetron [Zofran] 4 mg PO Q4H PRN 03/27/18 Doxylamine/Pyridoxine HCl [Finesse Story 10-10 mg Tablet] 1 each PO DAILY #90 tablet. 03/28/18 Ondansetron HCl [Zofran] 8 mg PO Q8H PRN #10 tablet 03/28/18 Pantoprazole [Protonix Tab*] 40 mg PO DAILY #20 tab 03/28/18 New Medications: Doxylamine/Pyridoxine HCl [Finesse Story 10-10 mg Tablet] 1 each PO DAILY #90 tablet. Ondansetron HCl [Zofran] 8 mg PO Q8H PRN #10 tablet PRN Reason: Nausea / Vomiting Pantoprazole [Protonix Tab*] 40 mg PO DAILY #20 tab
--- NOTE | 2018-03-28 20:15 | P.OBGYNHP ---
Certification for Inpatient Patient admitted to: Observation Patient will require the following post-hospital care: None Practitioner: I am a practitioner with admitting privileges, knowledge of patient current condition, hospital course, and medical plan of care. Services: Services provided to patient in accordance with Admission requirements found in Title 42 Section 412.3 of the Code of Federal Regulations Patient History Date of Service: 03/28/18 Allergies amoxicillin Allergy (Verified 10/06/17 22:06) Rash hydrocodone Adverse Reaction (Verified 10/06/17 22:06) Nausea/Vomiting fish oil Adverse Reaction (Mild, Uncoded 10/06/17 22:06) Hives/Rash Home Medications: Ondansetron [Zofran] 4 mg PO Q4H PRN 03/27/18 Doxylamine/Pyridoxine HCl [Diclegis Dr 10-10 mg Tablet] 1 each PO DAILY #90 tablet.dr 03/28/18 Ondansetron HCl [Zofran] 8 mg PO Q8H PRN #10 tablet 03/28/18 Pantoprazole [Protonix Tab*] 40 mg PO DAILY #20 tab 03/28/18 - Past Medical/Surgical History Has patient received pneumonia vaccine in the past: No Diabetic: No -: depression -: GERD -: DJD -: miscarriage x3 -: polypectomy 01/2018 -: Innis teeth 2004 -: Cholecystectomy 09/2017 - Social History Smoking Status: Current every day smoker Alcohol use: No CD- Drugs: No Caffeine use: Yes Place of Residence: Home Physical Examination - Vital Signs Temperature: 99.0 F Blood Pressure: 119/60 Pulse: 57 Respirations: 18 Assessment and Plan - Advance Directives Does patient have a Living Will: No Does patient have a Durable POA for Healthcare: No
== END 2018-03-28 14:50 | disposition home or self-care (01) ==
LOC: ER 17:46 → ERHOLD 21:11 → 2ND-WC 21:49
PROVIDERS: ADMIT Student in an Organized Health Care Education/Training Program; ATTEND Student in an Organized Health Care Education/Training Program
DX: O21.1 Hyperemesis gravidarum with metabolic disturbance (principal); Z3A.00 Weeks of gestation of pregnancy not specified; Z88.0 Allergy status to penicillin
CPT/HCPCS: 36415; 76856; 80048; 80076; 80307; 81003; 81015; 81025; 83690; 84702; 85025; 87086; 87088; 96361; 96365; 96366; 96375; 99285; C9113; G0378; J2405; J2550; J2765; J7030

== ENCOUNTER 2018-05-08 20:26 | Emergency (ER) | payer OTHER ==
--- OUTSIDE RECORDS SUMMARY | 2018-05-08 20:29 | XMS REPORT | Encounter Summary ---
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 Abdominal pain in urinalysis, dipstick US, obstetric, limited 2. Proteinuria culture, urine Discussion Note Discussed need for adequate hydration in . Asked her to call if severe cramping, bleeding, or nausea occurs. Patient educational handouts: No information available. Plan of Care Reminders Provider Appointments OB Jimo Mike Mi MD 05/18/2018 9:45AM OB Sono Sonogram 05/18/2018 9:45AM Lab Urinalysis, In-House Results Dipstick 04/20/2018 Culture, [facility] Urine 04/20/2018 [facility] Center (Lab) Referral None recorded. Procedures None recorded. Surgeries None recorded. Imaging US, In-House Results Obstetric, Limited 04/20/2018 Medications Name Start Date Diclegis 10 mg-10 mg tablet,delayed release folic acid 1 mg tablet Take 1 tablet every day by oral route. hydrocodone 5 mg-acetaminophen 325 mg tablet metoclopramide 10 mg tablet Take 1 tablet every 6 hours by oral route. metronidazole 500 mg tablet ondansetron [address] 1 tablet every 8 hours by translingual route as needed. ondansetron HCl 4 mg tablet pantoprazole 40 mg tablet,delayed release sumatriptan 50 mg tablet Medications Administered None recorded. Vitals Height Weight BMI Blood Pressure 5 ft 5 in 170 lbs 28.3 kg/m2 121/81 mm[Hg] Lab Results Date Name Specimen Result Interpretation Description Value Range Status Address 04/20/2018 Urinalysis, Leukocytes Negative In-House Dipstick Results: For Internal Use Only Nitrite negative In-House Results: For Internal Use Only Urobilinogen .2 In-House Results: For Internal Use Only Protein 30 In-House Results: For Internal Use Only Ph 6.0 In-House Results: For Internal Use Only Blood Negative In-House Results: For Internal Use Only Specific 1.025 In-House [place] Results: For Internal Use Only Ketone Small In-House Results: For Internal Use Only Bilirubin Negative In-House Results: For Internal Use Only Glucose Negative In-House Results: For Internal Use Only Appearance Clear In-House Results: For Internal Use Only Color Yellow In-House Results: For Internal Use Only 03/29/2018 CBC W/ Auto High White Blood 14.4 K/uL 4.0-11.5 Final [place] Diff Count K/uL [facility] (Lab): [address] [place] [address] Normal Red Blood 4.66 M/uL 3.80-5.20 Final [place] Count M/uL [facility] (Lab): [address] [place] [address] Normal Hemoglobin 13.9 g/dL 10.5-15.7 Final [place] g/dL [facility] (Lab): [address] [place] [address] Normal Hematocrit 40.2 % 34.0-50.0 Final [place] % [facility] (Lab): [address] [place] [address] Normal Mean 86.2 fL 78-98 fL Final [place] Corpuscular [facility] Volume [facility] (Lab): [address] [place] [address] Normal Mean 29.8 pg 26.2-33.4 Final [place] Corpuscular pg [facility] Hemoglobin [facility] (Lab): [address] [place] [address] Normal Mean 34.6 g/dL 31.5-36.2 Final [place] Corpuscular g/dL [facility] (Lab): [address] [place] [address] Normal Red Cell 12.1 % 11.5-15.5 Final [place] Distribution % [facility] (Lab): [address] [place] [address] Normal Platelet 276 K/uL 137-338 Final [place] Count K/uL [facility] (Lab): [address] [place] [address] Low Mean 7.1 fL 8.4-11.8 Final [place] Platelet fL [facility] (Lab): [address] [place] [address] Normal Neutrophils 70.9 % 44.4-80.1 Correcte [place] % % d [facility] (Lab): [address] [place] [address] Normal Lymphocyte% 22.6 % 10.0-50.0 Final [place] % [facility] (Lab): [address] [place] [address] Normal [place] % 5.5 % 3.6-12.04 Final [place] % [facility] (Lab): [address] [place] [address] Normal Eos % 0.3 % 0.0-5.41 Final [place] % [facility] (Lab): [address] [place] [address] High Basophil % 0.8 % 0.0-0.79 Final [place] % [facility] (Lab): [address] [place] [address] 03/29/2018 Rubella Ab, Normal Rubella IgG 113.2 Final [place] Titer, Serum [IU]/mL [facility] (Lab): [address] [place] [address] 03/29/2018 CT + NG DNA, Results Final [place] PCR, Cervical [facility] (Lab): [address] [place] [address] 03/29/2018 Abo Group + Rh Bld 4+ Final [place] Rh Type, [facility] Blood [facility] (Lab): [address] [place] [address] ABO + Rh Pnl B positive Final [place] Bld [facility] (Lab): [address] [place] [address] 03/29/2018 Antibody Bld Gp Ab negative Final [place] Screen, Serum Scn Serpl Ql [facility] or Plasma [facility] (Lab): [address] [place] [address] 03/29/2018 RPR (Rapid Normal Rpr nonreactive nonreacti Final [place] Plasma ve [facility] Reagin), [facility] Serum [place] (Lab): [address] [place] [address] 03/29/2018 HIV (1+2) Ab Normal HIV P24 Ag nonreacti Final [place] Screen, Serum ve [facility] (Lab): [address] [place] [address] Normal HIV-1/2 Ab nonreacti Final [place] ve [facility] (Lab): [address] [place] [address] 03/29/2018 HBsAg Normal .Hepatitis B negative negative Final [place] (Hepatitis B Surface Regional Surface Ag), Antigen [facility] (Lab): [address] [place] [address] 03/29/2018 Culture, Bacteria Ur no growth Final [place] Urine Cult after 2 days [facility] (Lab): [address] [place] [address] 03/29/2018 Urinalysis, Leukocytes Negative In-House Dipstick Results: For Internal Use Only Nitrite negative In-House Results: For Internal Use Only Urobilinogen .2 In-House Results: For Internal Use Only Protein 30 In-House Results: For Internal Use Only Ph 6.0 In-House Results: For Internal Use Only Blood Negative In-House Results: For Internal Use Only Specific 1.030 In-House [place] Results: For Internal Use Only Ketone Large In-House Results: For Internal Use Only Bilirubin Negative In-House Results: For Internal Use Only Glucose Negative In-House Results: For Internal Use Only Appearance Clear In-House Results: For Internal Use Only Color Yellow In-House Results: For Internal Use Only US, No In-House Obstetric, observation Results: Limited recorded. For Internal Use Only US, No In-House Obstetric, observation Results: Transvaginal recorded. For Internal Use Only [place], Clue Cells negative In-House Vaginal Results: For Internal Use Only Wbcs negative In-House Results: For Internal Use Only Trichomonads negative In-House Results: For Internal Use Only Epithelial normal In-House Cells Results: For Internal Use Only Rbcs negative In-House Results: For Internal Use Only Allergies Code Code System Name Reaction Severity Status Onset 723 RxNorm Amoxicillin Active 4419 RxNorm Fish Oil Active Problems Name Status Onset Date Source Mild Hyperemesis-not Delivered Active 03/16/2018 Active 03/16/2018 Severe Hyperemesis Gravidarum Active 03/29/2018 Abdominal Pain in Active 04/20/2018 Proteinuria Active 04/20/2018 Procedures Date Name Performed by 02/05/2018 Colonoscopy Information not available 03/29/2018 US, Obstetric, Transvaginal In-House Results For Internal Use Only [address] 04/20/2018 US, Obstetric, Limited In-House Results For Internal Use Only 88226 Vaccine List None recorded. Social History Smoking Status Current Every Day Smoker Past Encounters 04/20/2018 Abdominal Pain in ; Proteinuria KAYLAH Chappell: [address] [place] [id number], Ph. [phone] 03/29/2018 Screening; Severe Hyperemesis Gravidarum; Bacterial Disease Screening Mike Mi MD: [address] [place] [id number], Ph. [phone] History of Present Illness Note: Pt started to have sharp pains in lower abdomen starting at 9am that were constant, without bleeding. Pt now feels it is improving, but it still occurs with moving side to side or changing position. Does not drink water, only pineapple juice. Occasional nausea with resolution of vomiting with Reglan use in morning. Reports chronic diarrhea and continues-dx with possible IBS.Review of Systems: ROS as noted in the HPI Review of Systems None recorded. Physical Exam None recorded.
--- OUTSIDE RECORDS SUMMARY | 2018-05-08 20:29 | XMS REPORT | Encounter Summary ---
:1985 Author Reason for Visit NOB Instructions 1. screening CBC w/ auto diff CT + NG DNA, PCR, cervical culture, urine HIV (1+2) Ab screen, serum RPR (rapid plasma reagin), serum abo group + rh type, blood rubella Ab, titer, serum pap test, thinprep, cervical HBsAg (hepatitis B surface Ag), serum antibody screen, serum or plasma 2. Severe hyperemesis gravidarum urinalysis, dipstick US, obstetric, transvaginal 3. Bacterial disease screening [place], vaginal Discussion Note Discussed diet, activity, PNV, and iron supplement. reviewed OTC medications safe in .Explained expected symptoms for current and future trimesters. Plans for upcoming visits outlined, including ultrasounds and screening tests. Gave new Ob literature. Explained how to contact me and asked her to call if cramping, bleeding, or nausea occur or if she has any questions or problems. Total time face to face with patient was at least 45 minutes and over 50% was spent on counseling. RContinue Diclegis BID, add Reglan TID or QID, and take Zofran PRN. Recommend she hold PNV until nausea resolves. Take adequate fluids. Eat only dry starchy food such as toast, crackers, mashed potatoes, rice, etc, and only in small amounts. Patient educational handouts: No information available. Plan of Care Reminders Provider Appointments OB Sono Mike Hiwot, 04/22/2018 10:15AM OB Sono Sonogram 04/22/2018 10:15AM Lab [place], In-House Results Vaginal 03/29/2018 Urinalysis, In-House Results Dipstick 03/29/2018 CBC W/ Auto [place] Diff 03/29/2018 [facility] (Lab) CT + NG DNA, Nicholas PCR, Cervical 03/29/2018 [facility] (Lab) Culture, Urine Nicholas 03/29/2018 [facility] (Lab) HIV (1+2) Ab [place] Screen, Serum 03/29/2018 [facility] (Lab) RPR (Rapid Nicholas Plasma Reagin), Serum 03/29/2018 [facility] (Lab) Abo Group + Rh Nicholas Type, Blood 03/29/2018 [facility] (Lab) Rubella Ab, Nicholas Titer, Serum 03/29/2018 [facility] (Lab) Pap Test, Nicholas Thinprep, Cervical 03/29/2018 [facility] (Lab) HBsAg [place] (Hepatitis B Surface Ag), 03/29/2018 [facility] (Lab) Antibody [place] Screen, Serum or Plasma 03/29/2018 [facility] (Lab) Referral None recorded. Procedures None recorded. Surgeries None recorded. Imaging US, Obstetric, In-House Results Transvaginal 03/29/2018 Medications Name Start Date folic acid 1 mg tablet Take 1 tablet every day by oral route. Reglan 10 mg tablet Take 1 tablet every 6 hours by oral route. Zofran ODT [address] 1 tablet every 8 hours by translingual route as needed. Medications Administered None recorded. Vitals Height Weight BMI Blood Pressure 5 ft 5 in 165 lbs 27.5 kg/m2 118/79 mm[Hg] Lab Results Date Name Specimen Result Interpretation Description Value Range Status Address 03/29/2018 Urinalysis, Leukocytes Negative In-House Dipstick Results: For Internal Use Only Nitrite negative In-House Results: For Internal Use Only Urobilinogen .2 In-House Results: For Internal Use Only Protein 30 In-House Results: For Internal Use Only Ph 6.0 In-House Results: For Internal Use Only Blood Negative In-House Results: For Internal Use Only Specific 1.030 In-House [place] Results: For Internal Use Only Ketone Large In-House Results: For Internal Use Only Bilirubin Negative In-House Results: For Internal Use Only Glucose Negative In-House Results: For Internal Use Only Appearance Clear In-House Results: For Internal Use Only Color Yellow In-House Results: For Internal Use Only 03/16/2018 Test, Urine Test positive In- House Urine clean Results: catch For Internal Use Only US, Obstetric, No observation In-House Transvaginal recorded. Results: For Internal Use Only [place], Clue [...] Active 03/16/2018 Severe Hyperemesis Gravidarum Active 03/29/2018 Procedures Date Name Performed by 02/05/2018 Colonoscopy Information not available 03/29/2018 US, Obstetric, Transvaginal In-House Results For Internal Use Only [address] Vaccine List None recorded. Social History Smoking Status Current Every Day Smoker Past Encounters 03/29/2018 Screening; Severe Hyperemesis Gravidarum; Bacterial Disease Screening Mike Mi MD: [address] [place] [address], Ph. [phone] 03/16/2018 Urine Test Positive; Mild Hyperemesis-not Delivered Mike Mi MD: [address] [place] [phone], Ph. [phone] History of Present Illness Note: New ob visit. Complains of frequent nausea and vomiting. She was at the hospital in [place] two days ago and was kept overnight, discharged yesterday afternoon. She has vomited only once since then. She was prescribed Diclegis and Zofran, which have helped. She was also prescribed Reglanbut has not picked it up yet. Occ. mild cramping, no bleeding. History of term x 5 without problems. SAB x 3. 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 ROS Reported By: Patient Constitutional: Constitutional: no fatigue, no fever, no significant weight gain, no significant weight loss Skin: Skin: no abnormal moles, no rashes Eyes: Eyes: no irritation, no vision changes ENMT: ENMT: no hearing loss, no ear pain, no nose/sinus problems, no sore throat, no snoring, no dry mouth, no mouth ulcers Respiratory: Respiratory: no dyspnea / shortness of breath, no cough, no sputum production, no hemoptysis, no wheezing Cardiovascular: Cardiovascular: no chest pain, no palpitations, no orthopnea Gastrointestinal: Gastrointestinal: no heartburn, no dysphagia, no abdominal pain, no bowel movement changes, no diarrhea, no constipation, no rectal bleeding, nausea, vomiting Genitourinary: Genitourinary: no hematuria, no abnormal bleeding, no flank pain, no trouble urinating, no incontinence, no rash, no lesion, no discharge, no vaginal odor, no vaginal itching Endocrine: Menstrual: no menstrual problems, no PMDD symptoms. Menopausal: no menopausal symptoms. Sexual: no sexual problems Musculoskeletal: Musculoskeletal: no muscle aches, no muscle weakness, no arthralgias/joint pain, no back pain Neurological: Neurologic: no headaches, no dizziness, no LOC, no weakness, no numbness, no seizures Psychological: Psych: no depression, no alcoholism, no sleep disturbances Physical Exam Initial OB Reported By: Patient General Appearance: General Appearance: healthy-appearing , well- nourished, no acute distress Skin: Appearance: no rashes, no lesions Neck: Thyroid: no enlargement, no nodules, non-tender Lymph Nodes: Palpation: non tender submandibular nodes, non tender axillary nodes, non tender inguinal nodes Cardiovascular System: Auscultation: RRR, no murmur, no gallops. Legs: no LLE edema, no RLE edema, no varicosities, no calf tenderness, no palpable cords Lungs: Auscultation: no wheezing, no rales / crackles, no rhonchi Abdomen: Auscultation/Inspection/Palpation: soft, non-distended, no tenderness/guarding/rebound, no hepatomegaly, no splenomegaly, no masses, no CVA tenderness. Hernia: none palpated Female Genitalia: Vulva: grossly normal, no lesions. Vagina no abnormal vaginal discharge, no blood in vaginal vault. Cervix: grossly normal, no discharge, no cervical motion tenderness, sample taken for a Pap smear. Uterus: size appropriate for gestational age, regular contour, mobile. Adnexae: no masses palpated, no tenderness Rectal Exam: Rectum: normal perianal skin, no hemorrhoids
--- OUTSIDE RECORDS SUMMARY | 2018-05-08 20:30 | XMS REPORT | Encounter Summary ---
:1985 Author Reason for Visit Ob problem Instructions 1. Acute bronchitis urinalysis, dipstick Zithromax Z-Roby 250 mg tablet 2. Missed miscarriage US, obstetric, limited Cytotec 200 mcg tablet Tylenol-Codeine #3 300 mg-30 mg tablet Discussion Note Findings reviewed with the patient. Nature of SAB, risk of recurrence, and prognosis for future pregnancies discussed. Management options explained, including dilation & curettage, medical therapy, and expectant management. At least 15 min. of face to face time with the patient, >50% spent on counseling. Patient educational handouts: No information available. Plan of Care Reminders Provider Appointments OB Sono Mike Hiwot, 05/18/2018 9:45AM OB Sono Sonogram 05/18/2018 9:45AM Lab Urinalysis, In-House Results Dipstick 05/03/2018 Referral None recorded. Procedures None recorded. Surgeries None recorded. Imaging US, In-House Results Obstetric, Limited 05/03/2018 Medications Name Start Date cholestyramine (with sugar) 4 gram powder for susp in a packet Cytotec 200 mcg tablet four tabs per vagina now. may repeat in 12 hrs PRN Diclegis 10 mg-10 mg tablet,delayed release fluticasone 0.05 % topical cream folic acid 1 mg tablet Take 1 [...] mg tablet,delayed release sumatriptan 50 mg tablet Tylenol-Codeine #3 300 mg-30 mg tablet 1-2 p.o. q 4 hrs PRN pain Zithromax Z-Roby 250 mg tablet TAKE 2 TABLETS (500 MG) BY ORAL ROUTE ONCE DAILY FOR 1 DAY THEN 1 TABLET (250 MG) BY ORAL ROUTE ONCE DAILY FOR 4 DAYS Medications Administered None recorded. Vitals Height Weight BMI Blood Pressure 5 ft 5 in 171 lbs 28.5 kg/m2 133/86 mm[Hg] Lab Results Date Name Specimen Result Interpretation Description Value Range Status Address 05/03/2018 Urinalysis, Leukocytes Negative In-House Dipstick Results: For Internal Use Only Nitrite negative In-House Results: For Internal Use Only Urobilinogen .2 In-House Results: For Internal Use Only Protein Negative In-House Results: For Internal Use Only Ph 6.0 In-House Results: For Internal Use Only Blood Negative In-House Results: For Internal Use Only Specific 1.030 In-House [place] Results: For Internal Use Only Ketone Trace In-House Results: For Internal Use Only Bilirubin Negative In-House Results: For Internal Use Only Glucose Negative In-House Results: For Internal Use Only Appearance Clear In-House Results: For Internal Use Only Color Yellow In-House Results: For Internal Use Only 04/20/2018 Urinalysis, Leukocytes Negative In-House Dipstick Results: For Internal Use Only Nitrite negative In-House Results: For Internal Use Only Urobilinogen .2 In-House Results: For Internal Use Only Protein 30 In-House Results: For Internal Use Only Ph 6.0 In-House Results: For Internal Use Only Blood Negative In-House Results: For Internal Use Only Specific 1.025 In-House [place] Results: For Internal Use Only Ketone Small In-House Results: For Internal Use Only Bilirubin Negative In-House Results: For Internal Use Only Glucose Negative In-House Results: For Internal Use Only Appearance Clear In-House Results: For Internal Use Only Color Yellow In-House Results: For Internal Use Only US, Obstetric, No observation In-House Limited recorded. Results: For Internal Use Only US, Obstetric, No observation In-House Limited recorded. Results: For Internal Use Only Allergies Code Code System Name Reaction Severity Status Onset 723 RxNorm Amoxicillin Active 4419 RxNorm Fish Oil Active Problems Name Status Onset Date Source Mild Hyperemesis-not Delivered Active 03/16/2018 Active 03/16/2018 Severe Hyperemesis Gravidarum Active 03/29/2018 Abdominal Pain in Active 04/20/2018 Proteinuria Active 04/20/2018 Procedures Date Name Performed by 02/05/2018 Colonoscopy Information not available 04/20/2018 US, Obstetric, Limited In-House Results For Internal Use Only [address] 05/03/2018 US, Obstetric, Limited In-House Results For Internal Use Only 69423 Vaccine List None recorded. Social History Smoking Status Current Every Day Smoker Past Encounters 05/03/2018 Acute Bronchitis; Missed Miscarriage Mike Mi MD: [address] [facility], [address], [place] [address], Ph. [phone] 04/20/2018 Abdominal Pain in ; Proteinuria Ninfa KAYLAH Galindo: [address], [address], [place], [place] [id number], Ph. [phone] History of Present Illness Note: Patient complains of fever, sinus congestion, and cough with brown sputum. No vaginal bleeding or pelvic cramping. She has a doppler at home and has not been able to find heart tones. Review of Systems None recorded. 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 Mood and Affect: active and alert, normal mood, normal affect Skin: Appearance: no rashes, no lesions Neck: Neck: supple, trachea midline, no masses; *oropharynx injected, tonsils slightly enlarged; no exudate*. Thyroid: no enlargement, no nodules, non-tender Lungs: Respiratory Effort: no intercostal retractions, no accessory muscle usage. Auscultation: clear to auscultation, no wheezing, no rales/crackles, no rhonchi Lymph Nodes: Palpation: non tender submandibular nodes
--- OUTSIDE RECORDS SUMMARY | 2018-05-08 20:30 | XMS REPORT | Encounter Summary ---
:1985 Author Reason for Visit Ob problem Instructions 1. Abdominal pain in urinalysis, dipstick US, obstetric, limited 2. Proteinuria Discussion Note Discussed need for adequate hydration in . Asked her to call if severe cramping, bleeding, or nausea occurs. Patient educational handouts: No information available. Plan of Care Reminders Provider Appointments OB Sono Mike Mi, 05/18/2018 9:45AM OB Sono Sonogram 05/18/2018 9:45AM Lab Urinalysis, In-House Results Dipstick 04/20/2018 Referral None recorded. Procedures None recorded. Surgeries [...] For Internal Use Only Specific 1.025 In-House [place] Results: For Internal Use Only Ketone Small In-House Results: For Internal Use Only Bilirubin Negative In-House Results: For Internal Use Only Glucose Negative In-House Results: For Internal Use Only Appearance Clear In-House Results: For Internal Use Only Color Yellow In-House Results: For Internal Use Only 03/29/2018 CBC W/ Auto High White Blood 14.4 K/uL 4.0-11.5 Final [place] Diff Count K/uL [facility] (Lab): [address] [place] [address] Normal Red Blood 4.66 M/uL 3.80-5.20 Final [place] Count M/uL [facility] (Lab): [address] [place] [address] Normal Hemoglobin 13.9 g/dL 10.5-15.7 Final [place] g/dL [facility] (Lab): [address] [place] [address] Normal Hematocrit 40.2 % 34.0-50.0 Final [place] % [facility] (Lab): [address] [place] [address] Normal Mean 86.2 fL 78-98 fL Final [place] Corpuscular [facility] (Lab): [address] [place] [address] Normal Mean 29.8 pg 26.2-33.4 Final [place] Corpuscular pg [facility] Hemoglobin [facility] (Lab): [address] [place] [address] Normal Mean 34.6 g/dL 31.5-36.2 Final [place] Corpuscular g/dL [facility] (Lab): [address] [place] [address] Normal Red Cell 12.1 % 11.5-15.5 Final [place] Distribution % [facility] (Lab): [address] [place] [address] Normal Platelet 276 K/uL 137-338 Final [place] Count K/uL [facility] (Lab): [address] [place] [address] Low Mean 7.1 fL 8.4-11.8 Final [place] Platelet fL [facility] (Lab): [address] [place] [address] Normal Neutrophils 70.9 % 44.4-80.1 Correcte Maurice % % d [facility] (Lab): [address] [place] [address] Normal Lymphocyte% 22.6 % 10.0-50.0 Final [place] % [facility] (Lab): [address] [place] [address] Normal [place] % 5.5 % 3.6-12.04 Final [place] % [facility] (Lab): [address] [place] [address] Normal Eos % 0.3 % 0.0-5.41 Final [place] % [facility] (Lab): [address] [place] [address] High Basophil % 0.8 % 0.0-0.79 Final [place] % [facility] (Lab): [address] [place] [address] 03/29/2018 Rubella Ab, Normal Rubella IgG 113.2 Final [place] Titer, Serum [IU]/mL [facility] (Lab): [address] [place] [address] 03/29/2018 CT + NG DNA, Results Final [place] PCR, Cervical [facility] (Lab): [address] [place] [address] 03/29/2018 Abo Group + Rh Bld 4+ Final [place] Rh Type, [facility] Blood [facility] (Lab): [address] [place] [address] ABO + Rh Pnl B positive Final [place] Bld [facility] (Lab): [address] [place] [address] 03/29/2018 Antibody Bld Gp Ab negative Final [place] Screen, Serum Scn Serpl Ql [facility] or Plasma [facility] (Lab): [address] [place] [address] 03/29/2018 RPR (Rapid Normal Rpr nonreactive nonreacti Final [place] Plasma ve [facility] Reagin), [facility] Serum [place] (Lab): [address] [place] [address] 03/29/2018 HIV (1+2) Ab Normal HIV P24 Ag nonreacti Final [place] Screen, Serum ve [facility] (Lab): [address] [place] [address] Normal HIV-1/2 Ab nonreacti Final [place] ve [facility] (Lab): [address] [place] [address] 03/29/2018 HBsAg Normal .Hepatitis B negative negative Final [place] (Hepatitis B Surface Regional Surface Ag), Count Includes [facility] (Lab): [address] [place] [address] 03/29/2018 Culture, Bacteria Ur no growth Final [place] Urine Cult after 2 days [facility] (Lab): [address] [place] [address] 03/29/2018 Pap Test, Results Final [place] Thinprep, [facility] Cervical [facility] (Lab): [address] [place] [address] 03/29/2018 Urinalysis, Leukocytes Negative In-House Dipstick Results: For Internal Use Only Nitrite negative In-House Results: For Internal Use Only Urobilinogen .2 In-House Results: For Internal Use Only Protein 30 In-House Results: For Internal Use Only Ph 6.0 In-House Results: For Internal Use Only Blood Negative In-House Results: For Internal Use Only Specific 1.030 In-House [place] Results: For Internal Use Only Ketone Large [...] Transvaginal In-House Results For Internal Use Only 93143 04/20/2018 US, Obstetric, Limited In-House Results For Internal Use Only 89360 Vaccine List None recorded. Social History Smoking Status Current Every Day Smoker Past Encounters 04/20/2018 Abdominal Pain in ; Proteinuria KAYLAH Chappell: [address] [place] [id number], Ph. [phone] 03/29/2018 Screening; Severe Hyperemesis Gravidarum; Bacterial Disease Screening Mike Mi MD: [address] [place] [id number], Ph. [phone] History of Present Illness Note: Pt started [...]
--- OUTSIDE RECORDS SUMMARY | 2018-05-08 20:30 | XMS REPORT | Encounter Summary ---
:1985 Demographics Address [address] [place] [id number] Home Phone [phone] Preferred Language Serbian Marital Status Jewish Affiliation Unknown Race Unknown Ethnic Group Not [...] Lab Urinalysis, In-House Results Dipstick 04/20/2018 Culture, [facility] Urine 04/20/2018 Medical Center (Lab) Referral None [...] For Internal Use Only Specific 1.025 In-House [place] Results: For Internal Use Only Ketone Small In-House Results: For Internal Use Only Bilirubin Negative In-House Results: For Internal Use Only Glucose Negative In-House Results: For Internal Use Only Appearance Clear In-House Results: For Internal Use Only Color Yellow In-House Results: For Internal Use Only 03/29/2018 CBC W/ Auto High White Blood 14.4 K/uL 4.0-11.5 Final [place] Diff Count K/uL [facility] (Lab): [address] [place] [address] Normal Red Blood 4.66 M/uL 3.80-5.20 Final [place] Count M/uL [facility] (Lab): [address] [place] [address] Normal Hemoglobin 13.9 g/dL 10.5-15.7 Final [place] g/dL [facility] (Lab): [address] [place] [address] Normal Hematocrit 40.2 % 34.0-50.0 Final [place] % [facility] (Lab): [address] [place] [address] Normal Mean 86.2 fL 78-98 fL Final [place] Corpuscular [facility] Volume [facility] (Lab): [address] [place] [address] Normal Mean 29.8 pg 26.2-33.4 Final [place] Corpuscular pg [facility] Hemoglobin [facility] (Lab): [address] [place] [address] Normal Mean 34.6 g/dL 31.5-36.2 Final [place] Corpuscular g/dL [facility] (Lab): [address] [place] [address] Normal Red Cell 12.1 % 11.5-15.5 Final [place] Distribution % [facility] (Lab): [address] [place] [address] Normal Platelet 276 K/uL 137-338 Final [place] Count K/uL [facility] (Lab): [address] [place] [address] Low Mean 7.1 fL 8.4-11.8 Final [place] Platelet fL [facility] (Lab): [address] [place] [address] Normal Neutrophils 70.9 % 44.4-80.1 Correcte [place] % % d [facility] (Lab): [address] [place] [address] Normal Lymphocyte% 22.6 % 10.0-50.0 Final [place] % [facility] (Lab): [address] [place] [address] Normal [place] % 5.5 % 3.6-12.04 Final [place] % [facility] (Lab): [address] [place] [address] Normal Eos % 0.3 % 0.0-5.41 Final [place] % [facility] (Lab): [address] [place] [address] High Basophil % 0.8 % 0.0-0.79 Final [place] % [facility] (Lab): [address] [place] [address] 03/29/2018 Rubella Ab, Normal Rubella IgG 113.2 Final [place] Titer, Serum [IU]/mL [facility] (Lab): [address] [place] [address] 03/29/2018 CT + NG DNA, Results Final [place] PCR, Cervical [facility] (Lab): [address] [place] [address] 03/29/2018 Abo Group + Rh Bld 4+ Final [place] Rh Type, [facility] Blood [facility] (Lab): [address] [place] [address] ABO + Rh Pnl B positive Final [place] Bld [facility] (Lab): [address] [place] [address] 03/29/2018 Antibody Bld Gp Ab negative Final [place] Screen, Serum Scn Serpl Ql [facility] or Plasma [facility] (Lab): [address] [place] [address] 03/29/2018 RPR (Rapid Normal Rpr nonreactive nonreacti Final [place] Plasma ve [facility] Reagin), [facility] Serum [place] (Lab): [address] [place] [address] 03/29/2018 HIV (1+2) Ab Normal HIV P24 Ag nonreacti Final [place] Screen, Serum ve [facility] (Lab): [address] [place] [address] Normal HIV-1/2 Ab nonreacti Final [place] ve [facility] (Lab): [address] [place] [address] 03/29/2018 HBsAg Normal .Hepatitis B negative negative Final [place] (Hepatitis B Surface Regional Surface Ag), Antigen [facility] (Lab): [address] [place] [address] 03/29/2018 Culture, Bacteria Ur no growth Final [place] Urine Cult after 2 days [facility] (Lab): [address] [place] [address] 03/29/2018 Urinalysis, Leukocytes Negative In-House Dipstick Results: For Internal Use Only Nitrite negative In-House Results: For Internal Use Only Urobilinogen .2 In-House Results: For Internal Use Only Protein 30 In-House Results: For Internal Use Only Ph 6.0 In-House Results: For Internal Use Only Blood Negative In-House Results: For Internal Use Only Specific 1.030 In-House [place] Results: For Internal Use Only Ketone Large [...] Transvaginal In-House Results For Internal Use Only 64200 04/20/2018 US, Obstetric, Limited In-House Results For Internal Use Only 63215 Vaccine List None recorded. Social History Smoking Status Current Every Day Smoker Past Encounters 04/20/2018 Abdominal Pain in ; Proteinuria KAYLAH Chappell: [address] [place] [id number], Ph. [phone] 03/29/2018 Screening; Severe Hyperemesis Gravidarum; Bacterial Disease Screening Mike Mi MD: [address] [place] [phone], Ph. [phone] History of Present Illness Note: Pt started [...]
[2018-05-08 21:55] LABS: Absolute Lymphocytes (CBC) 2.3 K/uL (0.7-4.9); Absolute Monocytes 0.5 K/uL (0.1-1.3); Absolute Neutrophil 7.7 K/uL (1.8-8.0); Basophils % 0.5 % (0-1.3); Eosinophils % 2.2 % (0-4.4); Hematocrit 38.9 % (36.0-45.0); Lymphocytes % 21.5 % (15.3-44.8); MPV 8.3 fL (7.6-11.3); Monocytes % 4.7 % (3.3-12.3); RBC Red Blood Cell Count 4.44 M/uL (3.86-4.86)
[2018-05-08 22:07] LABS: Urine Blood 2+ (NEG); Urine Glucose NEGATIVE (NEG); Urine Protein TRACE (NEG); Urine Specific Gravity 1.025 (1.005-1.030); Urine pH 5.5 (5.0-7.0)
[2018-05-08 22:11] LABS: BUN Blood Urea Nitrogen 13 mg/dL (7-18); Bicarbonate 24 mmol/L (21-32); Glucose Level 95 mg/dL (74-106); Potassium 3.8 mmol/L (3.5-5.1); Sodium Level 142 mmol/L (136-145)
--- NOTE | 2018-05-08 22:34 | ER ---
Nurse's Notes [facility] Name: Ruchi Stafford Age: 32 yrs Sex: Female : 1985 Arrival Date: 05/08/2018 Time: 20:30 Bed 16 Private MD: Gilmar Esteban E Diagnosis: Vaginal bleeding. S/P Miscarriage. Retained products Presentation: 05/08 20:31 Presenting complaint: Patient states: I had a miscarriage one Thursday at 13 weeks and la1 the stuff that is coming out now smells like a animal. I think I am still passing parts of the placenta. Transition of care: patient was not received from another setting of care. Onset of symptoms was May 08, 2018. Risk Assessment: Do you want to hurt yourself or someone else? Patient reports no desire to harm self or others. Initial Sepsis Screen: Does the patient meet any 2 criteria? No. Patient's initial sepsis screen is negative. Does the patient have a suspected source of infection? No. Patient's initial sepsis screen is negative. Care prior to arrival: None. 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 - Social history:: Smoking status: Patient uses tobacco products, vape. - Ebola Screening: : No symptoms or risks identified at this time. Screenin:50 Abuse screen: Denies threats or abuse. Denies injuries from another. Nutritional aa1 screening: No deficits noted. Tuberculosis screening: No symptoms or risk factors identified. Fall Risk None identified. Assessment: 20:50 General: Appears in no apparent distress. comfortable, Behavior is calm, cooperative, aa1 appropriate for age. Pain: Denies pain. Neuro: Level of Consciousness is awake, alert, obeys commands, Oriented to person, place, time, situation, Moves all extremities. Full function Gait is steady, Speech is normal. Respiratory: Airway is patent Respiratory effort is even, unlabored, Respiratory pattern is regular, symmetrical. GI: No signs and/or symptoms were reported involving the gastrointestinal system. : Reports discharge, from vagina that is bloody, malodorous. EENT: No signs and/or symptoms were reported regarding the EENT system. Derm: Skin is intact, is healthy with good turgor, Skin is pink, warm \T\ dry. Musculoskeletal: Circulation, motion, and sensation intact. Capillary refill < 3 seconds. 21:22 Reassessment: Patient appears in no apparent distress at this time. Patient and/or aa1 family updated on plan of care and expected duration. Pain level reassessed. Patient is alert, oriented x 3, equal unlabored respirations, skin warm/dry/pink. U/S tech at bedside for exam. 21:55 Reassessment: Patient appears in no apparent distress at this time. Patient and/or aa1 family updated on plan of care and expected duration. Pain level reassessed. Patient is alert, oriented x 3, equal unlabored respirations, skin warm/dry/pink. Awaiting lab results. 22:39 Reassessment: Patient appears in no apparent distress at this time. Patient and/or jb4 family updated on plan of care and expected duration. Pain level reassessed. Patient is alert, oriented x 3, equal unlabored respirations, skin warm/dry/pink. Vital Signs: 20:33 Pulse 81; Resp 16; Temp 98.2; Pulse Ox 100% on R/A; Weight 74.84 kg; Height 5 ft. 5 in. la1 (165.10 cm); 20:34 BP 126 / 95; la1 21:55 BP 111 / 73; Pulse 79; Resp 16; Pulse Ox 99% on R/A; Pain 0/10; aa1 22:39 BP 126 / 78; Pulse 82; Resp 16; Pulse Ox 100% on R/A; jb4 20:33 Body Mass Index 27.46 (74.84 kg, 165.10 cm) la1 ED Course: 20:30 Patient arrived in ED. es 20:31 Gilmar Esteban MD is Private Physician. es 20:32 Triage completed. la1 20:33 Arm band placed on left wrist. la1 20:35 Dank Dinh MD is Attending Physician. pkl 20:50 Patient has correct armband on for positive identification. Placed in gown. Bed in low aa1 position. Call light in reach. Pulse ox on. NIBP on. Warm blanket given. 21:02 Leanna Rivero, RN is Primary Nurse. aa1 21:14 Assist provider with pelvic exam: Set up pelvic tray. Performed by Dank Dinh MD Specimens aa1 sent to lab. Patient tolerated well. 21:44 Initial lab(s) drawn, by ga, sent to lab. Inserted saline lock: 20 gauge in left aa1 antecubital area, using aseptic technique. Blood collected. 21:46 US Transvaginal Ob In Process Unspecified. EDMS 21:46 Ultrasound completed. Patient tolerated well. Notified ED Physician meenakshi. sg3 22:00 Report given to Andrey Lawson, LINDA. aa1 22:39 IV discontinued, intact, bleeding controlled. jb4 Administered Medications: No medications were administered Outcome: 22:32 Discharge ordered by . pkl 22:39 Discharged to home ambulatory, with significant other. jb4 22:39 Condition: stable 22:39 Discharge instructions given to patient, significant other, Instructed on discharge instructions, follow up and referral plans. medication usage, Demonstrated understanding of instructions, follow-up care, medications, Prescriptions given X 1. 22:41 Patient left the ED. jb4 Signatures: Dispatcher [employer] EDPA Leanna Rivero, RN RN aa1 Dank Dinh MD MD pkWendi Abreu Lee RN RN la1 Darrius Lawson RN RN jb4 Melania Chen sg3
--- NOTE | 2018-05-08 22:34 | EDPHYS ---
Physician Documentation [facility] Name: Ruchi Stafford Age: 32 yrs Sex: Female : 1985 Arrival Date: 05/08/2018 Time: 20:30 Bed 16 Private MD: Gilmar Esteban E ED Physician Dank Dinh HPI: 05/08 20:51 This 32 yrs old Female presents to ER via Ambulatory with unknown complaint. pkl 20:51 The patient presents to the emergency department with Patient had miscarriage 5 days pkl ago. Patient said she is still passing passing clots. Patient said she was given Methergine pills by her OB after misscarriage. 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 - Social history:: Smoking status: Patient uses tobacco products, vape. - Ebola Screening: : No symptoms or risks identified at this time. ROS: 20:51 Eyes: Negative for injury, pain, redness, and discharge, ENT: Negative for injury, pkl pain, and discharge, Neck: Negative for injury, pain, and swelling, Cardiovascular: Negative for chest pain, palpitations, and edema, Respiratory: Negative for shortness of breath, cough, wheezing, and pleuritic chest pain, Abdomen/GI: Negative for abdominal pain, nausea, vomiting, diarrhea, and constipation, Back: Negative for injury and pain. 20:51 : Positive for vaginal bleeding. 20:51 MS/extremity: Negative for acute changes. 20:51 Skin: Negative for rash. 20:51 Neuro: Negative for altered mental status. Exam: 21:20 Head/Face: Normocephalic, atraumatic. Eyes: Pupils equal round and reactive to light, pkl extra-ocular motions intact. Lids and lashes normal. Conjunctiva and sclera are non-icteric and not injected. Cornea within normal limits. Periorbital areas with no swelling, redness, or edema. ENT: Nares patent. No nasal discharge, no septal abnormalities noted. Tympanic membranes are normal and external auditory canals are clear. Oropharynx with no redness, swelling, or masses, exudates, or evidence of obstruction, uvula midline. Mucous membranes moist. Neck: Trachea midline, no thyromegaly or masses palpated, and no cervical lymphadenopathy. Supple, full range of motion without nuchal rigidity, or vertebral point tenderness. No Meningismus. Chest/axilla: Normal chest wall appearance and motion. Nontender with no deformity. No lesions are appreciated. Cardiovascular: Regular rate and rhythm with a normal S1 and S2. No gallops, murmurs, or rubs. Normal PMI, no JVD. No pulse deficits. Respiratory: Lungs have equal breath sounds bilaterally, clear to auscultation and percussion. No rales, rhonchi or wheezes noted. No increased work of breathing, no retractions or nasal flaring. Abdomen/GI: Soft, non-tender, with normal bowel sounds. No distension or tympany. No guarding or rebound. No evidence of tenderness throughout. Back: No spinal tenderness. No costovertebral tenderness. Full range of motion. 21:20 : Pelvic Exam: Speculum exam: mild bleeding, os that is open, tissue in cervix is seen. 21:20 Musculoskeletal/extremity: Exam is negative for acute changes. 21:20 Skin: Exam negative for rash. 21:20 Neuro: Orientation: is normal, Mentation: is normal, Cranial nerves: grossly normal, Motor: is normal. Vital Signs: 20:33 Pulse 81; Resp 16; Temp 98.2; Pulse Ox 100% on R/A; Weight 74.84 kg; Height 5 ft. 5 in. la1 (165.10 cm); 20:34 BP 126 / 95; la1 21:55 BP 111 / 73; Pulse 79; Resp 16; Pulse Ox 99% on R/A; Pain 0/10; aa1 22:39 BP 126 / 78; Pulse 82; Resp 16; Pulse Ox 100% on R/A; jb4 20:33 Body Mass Index 27.46 (74.84 kg, 165.10 cm) la1 Procedures: 21:20 Tissue in cervix removed with ring forceps. Minimal bleeding noted. pkl MDM: 20:35 Patient medically screened. pkl 22:30 Data reviewed: vital signs, nurses notes, lab test result(s), radiologic studies, pkl ultrasound. 22:33 ED course: Discussed lab. and US results with patient. Advised to take remaining pkl Methergine and follow up with patient's OB ( Dr. Mi ) on Thursday. Patient understood instructions.. 05/08 20:59 Order name: CBC with Diff; Complete Time: 22:27 pkl 05/08 20:59 Order name: Chem 7; Complete Time: 22:27 pkl 05/08 20:50 Order name: US Transvaginal Ob pkl 05/08 22:02 Order name: Urine Dipstick--Ancillary (enter results) ag4 05/08 22:03 Order name: Urine Dipstick-Ancillary; Complete Time: 22:27 EDMS Administered Medications: No medications were administered Disposition: 05/08/18 22:32 Discharged to Home. Impression: Vaginal bleeding. S/P Miscarriage. Retained products. - Condition is Stable. - Prescriptions for Doxycycline Hyclate 100 mg Oral Tablet - take 1 tablet by ORAL route every 12 hours; 14 tablet. - Medication Reconciliation Form, Thank You Letter, Antibiotic Education, Prescription Opioid Use form. - Follow up: Private Physician; When: 2 - 3 days; Reason: Re-evaluation by your physician. - Problem is new. - Symptoms have improved. Signatures: Dispatcher [employer] EDMS Dank Dinh MD MD pkl Valeriano Chamorro RN RN la1 Darrius Lawson, LINDA RN jb4 Corrections: (The following items were deleted from the chart) 22:41 22:32 05/08/2018 22:32 Discharged to Home. Impression: Vaginal bleeding. S/P jb4 Miscarriage. Retained products. Condition is Stable. Forms are Medication Reconciliation Form, Thank You Letter, Antibiotic Education, Prescription Opioid Use. Follow up: Private Physician; When: 2 - 3 days; Reason: Re-evaluation by your physician. Problem is new. Symptoms have improved. pkl
[2018-05-08 23:37] VITALS: TEMP 98.2
[2018-05-08 23:41] VITALS: BP 126/78; O2SAT 100
--- NOTE | 2018-05-09 08:50 | RAD REPORT ---
EXAM DESCRIPTION: US - Transvaginal OB - 05/08/2018 9:46 pm CLINICAL HISTORY: Vaginal bleeding, suspected miscarriage Preliminary findings provided at the time of the study. COMPARISON: pelvic ultrasound February 2018. TECHNIQUE: Endovaginal sonography performed. FINDINGS: Both ovaries are identified and normal. No adnexal mass identified. No blood or fluid in t he cul-de-sac. Uterus is normal in size. Within the endometrial cavity there is no gestational sac or sac remnant id entifiable. Endometrium is thickened up to 2 cm and heterogeneous. Small amount of fluid or hemorrhag ic byproducts noted in the endometrial cavity. IMPRESSION: No intrauterine gestational sac or sac remnant. No adnexal mass to suspect ectopic pregn jean-pierre. Thickened heterogeneous endometrium with hemorrhagic material present.
== END 2018-05-08 22:41 | disposition home or self-care (01) ==
LOC: ER 20:26
DX: O03.1 Delayed or excessive hemorrhage following incomplete spontaneous abortion (principal); Z72.0 Tobacco use; Z88.1 Allergy status to other antibiotic agents; Z91.013 Allergy to seafood
CPT/HCPCS: 36415; 76817; 80048; 81003; 85025; 88305; 99284

== ENCOUNTER 2021-07-04 11:17 | Emergency (ER) | payer OTHER ==
--- OUTSIDE RECORDS SUMMARY | 2021-07-04 11:23 | XMS REPORT | Continuity of Care Document ---
:1985 Author Organization [facility] t Address [facility] Andres Willis [address] [place] [address] Support Name Relationship Address Phone CARMEN De La Cruz [address] [place] [address] AMY X Unavailable Unavailable HEBERT Primary Care Physician [address] [place] [address] MD MARTINE A Admitting Provider [address] [phone] [place] [address] DOUBOWS Unavailable [address] [place] [address] Care Team Providers Name Role Phone PCP, DOES NOT HAVE A Primary Care Physician Unavailable Heidy Attending Clinician Unavailable Manisha Attending Clinician Unavailable Kathleen CRUZ Attending Clinician Unavailable Baltazar ASHRAF Attending Clinician Unavailable Heidy Admitting Clinician Unavailable Manisha Admitting Clinician Unavailable Payers Payer Name Policy Type Policy Number Effective Date Expiration Date Kathleen rubin [facility] [id number] 2017 [place] 00:00:00 (MEDICAID HMO) FORMERLY [facility] [id number] 2017 00:00:00 Problems Condition Condition Condition Status Onset Resolution Last Treating Co mments Source Name Details Category Date Date Treatment Clinician Date Sterilizat Sterilizat Problem Active 2019-03 [facility] ion ion 2-22 da requested Requested 00:00: Medi esteban 00 Group 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 1-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 00:00: Medical carrier Carrier 00 Group complicati Complicati ng ng Seasonal Seasonal Problem Active 2019-03 [place] [facility] allergic Allergic 0-27 da rhinitis Rhinitis 00:00: Medica l 00 Group Posttrauma Posttrauma Problem Active 2020-0 [facility] tic stress tic Stress 5-08 da disorder Disorder 00:00: Medica l 00 Group Mild Mild Problem Active [facility] hyperemesi Hyperemesi 08 da s-not s-not 00:00: Medical delivered Delivered 00 Grou p High risk High Risk Problem Active [facility] 08-04 da due to Due to 00:00: Medical recurrent Recurrent 00 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 [facility] miscarriag Miscarriag 09-23 da e e 00:00: Medical 00 Group Sciatica Sciatica Problem Active [facility] Allergies, Adverse Reactions, Alerts Allergy Allergy Status Severity Reaction(s) Onset Inactive Treating Comm ents Source Name Type Date Date Clinician AMOXICIL DRUG Active Hives Univers ZAID INGREDI 18 ity of 00:00: [address] APPLE DRUG Active Rash Univers CIDER 18 ity of VINEGAR 00:00: [address] SEAFOOD/ Food Active Hives Univers FISH 18 ity of 00:00: [address] Amoxicil Allergy Active Moderate Hives [facility] [facility] zaid [facility] Fish Oil Allergy Active Moderate Hives [facility] Social History Smoking Status Start Date Stop Date Source Current Every Day Smoker [facility] Medications Ordered Filled Start Stop Current Ordering Indication Dosage Frequency Signature Comments Components Source Medication Medication Date Date Medication? Clinician (SIG) Name Name buspirone buspirone No 1 BID buspirone [facility] 7.5 mg 7.5 mg 7-01 7.5 mg da tablet Take tablet Take 00:00: tablet Medical 1 tablet 1 tablet 00 Take 1 Group twice a day twice a day tablet by oral by oral twice a route. route. day by oral route. acetaminoph acetaminoph No acetaminop [place] en 300 en 300 hen 300 da mg-codeine mg-codeine mg-codeine Medical 30 mg 30 mg 30 mg Group tablet 1-2 tablet 1-2 tablet 1-2 p.o. q 6 p.o. q 6 p.o. q 6 hrs PRN hrs PRN hrs PRN pain pain pain buspirone buspirone No buspirone [facility] 15 mg 15 mg 15 mg da tablet tablet tablet Medical Group cetirizine cetirizine No cetirizine [facility] 10 mg 10 mg 10 mg da tablet Take tablet Take tablet Medical 1 tablet 1 tablet Take 1 Group every day every day tablet by oral by oral every day route. route. by oral route. ibuprofen ibuprofen No ibuprofen [facility] 800 mg 800 mg 800 mg da tablet tablet tablet Medical Group pantoprazol pantoprazol No pantoprazo [place] e 40 mg e 40 mg le 40 mg da tablet,fei tablet,fei tablet,del Medical yed release yed release ayed G roup release No [facility] Vitamin Vitamin Vitamin [facility] Vital Signs Vital Name Observation Time Observation Value Comments Source BP Diastolic 2020-04-23 00:00:00 87 mm[Hg] [facility] Height 2020-04-23 00:00:00 65 [in_i] [facility] BMI (Body Mass 2020-04-23 00:00:00 28.1 kg/m2 [facility] Medical Index) Group BP Systolic 2020-04-23 00:00:00 127 mm[Hg] [facility] Body Weight 2020-04-23 00:00:00 169.1 [lb_av] [facility] BP Diastolic 2020-04-06 00:00:00 82 mm[Hg] [facility] Height 2020-04-06 00:00:00 65 [in_i] [facility] BMI (Body Mass 2020-04-06 00:00:00 27.6 kg/m2 [facility] Medical Index) Group BP Systolic 2020-04-06 00:00:00 115 mm[Hg] [facility] Body Weight 2020-04-06 00:00:00 166.1 [lb_av] [facility] BP Diastolic 2020-03-20 00:00:00 74 mm[Hg] [facility] Height 2020-03-20 00:00:00 65 [in_i] [facility] BMI (Body Mass 2020-03-20 00:00:00 26.6 kg/m2 [facility] Medical Index) Group BP Systolic 2020-03-20 00:00:00 118 mm[Hg] [facility] Body Weight 2020-03-20 00:00:00 160 [lb_av] [facility] BP Diastolic 2020-02-21 00:00:00 75 mm[Hg] [facility] Height 2020-02-21 00:00:00 65 [in_i] [facility] BMI (Body Mass 2020-02-21 00:00:00 30.1 kg/m2 [facility] Medical Index) Group BP Systolic 2020-02-21 00:00:00 120 mm[Hg] [facility] Body Weight 2020-02-21 00:00:00 181 [lb_av] [facility] BP Diastolic 2020-02-14 00:00:00 69 mm[Hg] [facility] Height 2020-02-14 00:00:00 65 [in_i] [facility] BMI (Body Mass 2020-02-14 00:00:00 29.8 kg/m2 [facility] Medical Index) Group BP Systolic 2020-02-14 00:00:00 125 mm[Hg] [facility] Body Weight 2020-02-14 00:00:00 179.2 [lb_av] [facility] BP Diastolic 2020-02-07 00:00:00 74 mm[Hg] [facility] Height 2020-02-07 00:00:00 65 [in_i] [facility] BMI (Body Mass 2020-02-07 00:00:00 29.5 kg/m2 [facility] Medical Index) Group BP Systolic 2020-02-07 00:00:00 128 mm[Hg] [facility] Body Weight 2020-02-07 00:00:00 177.1 [lb_av] [facility] BP Diastolic 2020-01-24 00:00:00 64 mm[Hg] [facility] Height 2020-01-24 00:00:00 65 [in_i] [facility] BMI (Body Mass 2020-01-24 00:00:00 28.6 kg/m2 [facility] Medical Index) Group BP Systolic 2020-01-24 00:00:00 116 mm[Hg] [facility] Body Weight 2020-01-24 00:00:00 172 [lb_av] [facility] BP Diastolic 2020-01-10 00:00:00 66 mm[Hg] [facility] Height 2020-01-10 00:00:00 65 [in_i] [facility] BMI (Body Mass 2020-01-10 00:00:00 28.9 kg/m2 [facility] Medical Index) Group BP Systolic 2020-01-10 00:00:00 110 mm[Hg] [facility] Body Weight 2020-01-10 00:00:00 173.9 [lb_av] [facility] BP Diastolic 2019-12-13 00:00:00 69 mm[Hg] [facility] Height 2019-12-13 00:00:00 65 [in_i] [facility] BMI (Body Mass 2019-12-13 00:00:00 29 kg/m2 [facility] Medical Index) Group BP Systolic 2019-12-13 00:00:00 103 mm[Hg] [facility] Body Weight 2019-12-13 00:00:00 174.5 [lb_av] [facility] BP Diastolic 2019-11-15 00:00:00 74 mm[Hg] [facility] BP Systolic 2019-11-15 00:00:00 124 mm[Hg] [facility] Body Weight 2019-11-15 00:00:00 172.2 [lb_av] [facility] BP Diastolic 2019-10-27 00:00:00 79 mm[Hg] [facility] Height 2019-10-27 00:00:00 65 [in_i] [facility] BMI (Body Mass 2019-10-27 00:00:00 27.9 kg/m2 [facility] Medical Index) Group BP Systolic 2019-10-27 00:00:00 124 mm[Hg] [facility] Body Weight 2019-10-27 00:00:00 167.7 [lb_av] [facility] BP Diastolic 2019-09-23 00:00:00 63 mm[Hg] [facility] Height 2019-09-23 00:00:00 65 [in_i] [facility] BP Systolic 2019-09-23 00:00:00 99 mm[Hg] [facility] Body Weight 2019-09-23 00:00:00 168 [lb_av] [facility] BP Diastolic 2019-08-26 00:00:00 72 mm[Hg] [facility] Height 2019-08-26 00:00:00 65 [in_i] [facility] BMI (Body Mass 2019-08-26 00:00:00 27.6 kg/m2 [facility] Medical Index) Group BP Systolic 2019-08-26 00:00:00 123 mm[Hg] [facility] Body Weight 2019-08-26 00:00:00 166 [lb_av] [facility] BP Diastolic 2019-08-24 00:00:00 76 mm[Hg] [facility] Height 2019-08-24 00:00:00 65 [in_i] [facility] BMI (Body Mass 2019-08-24 00:00:00 27.3 kg/m2 [facility] Medical Index) Group BP Systolic 2019-08-24 00:00:00 113 mm[Hg] [facility] Body Weight 2019-08-24 00:00:00 164.3 [lb_av] [facility] BP Diastolic 2019-08-05 00:00:00 75 mm[Hg] [facility] Height 2019-08-05 00:00:00 65 [in_i] [facility] BMI (Body Mass 2019-08-05 00:00:00 26.3 kg/m2 [facility] Medical Index) Group BP Systolic 2019-08-05 00:00:00 112 mm[Hg] [facility] Body Weight 2019-08-05 00:00:00 158.1 [lb_av] [facility] BP Diastolic 2018-09-23 00:00:00 86 mm[Hg] [facility] Height 2018-09-23 00:00:00 65 [in_i] [facility] BMI (Body Mass 2018-09-23 00:00:00 26.5 kg/m2 [facility] Medical Index) Group BP Systolic 2018-09-23 00:00:00 131 mm[Hg] [facility] Body Weight 2018-09-23 00:00:00 159.4 [lb_av] [facility] BP Diastolic 2018-05-03 00:00:00 86 mm[Hg] [facility] Height 2018-05-03 00:00:00 65 [in_i] [facility] BMI (Body Mass 2018-05-03 00:00:00 28.5 kg/m2 [facility] Medical Index) Group BP Systolic 2018-05-03 00:00:00 133 mm[Hg] [facility] Body Weight 2018-05-03 00:00:00 171 [lb_av] [facility] BP Diastolic 2018-04-20 00:00:00 81 mm[Hg] [facility] Height 2018-04-20 00:00:00 65 [in_i] [facility] BMI (Body Mass 2018-04-20 00:00:00 28.3 kg/m2 [facility] Medical Index) Group BP Systolic 2018-04-20 00:00:00 121 mm[Hg] [facility] Body Weight 2018-04-20 00:00:00 170 [lb_av] [facility] BP Diastolic 2018-03-29 00:00:00 79 mm[Hg] [facility] Height 2018-03-29 00:00:00 65 [in_i] [facility] BMI (Body Mass 2018-03-29 00:00:00 27.5 kg/m2 [facility] Medical Index) Group BP Systolic 2018-03-29 00:00:00 118 mm[Hg] [facility] Body Weight 2018-03-29 00:00:00 165 [lb_av] [facility] BP Diastolic 2018-03-16 00:00:00 80 mm[Hg] [facility] Height 2018-03-16 00:00:00 65 [in_i] [facility] BMI (Body Mass 2018-03-16 00:00:00 29.1 kg/m2 [facility] Medical Index) Group BP Systolic 2018-03-16 00:00:00 124 mm[Hg] [facility] Body Weight 2018-03-16 00:00:00 175 [lb_av] [facility] Procedures Procedure Date / Time Performing Clinician Source Performed US, obstetric, limited 2020-02-07 00:00:00 [facility] ord Medical Group US, obstetric, limited 2020-01-10 00:00:00 [facility] ULTRASOUND REPEAT 2019-12-13 00:00:00 [facility] ULTRASOUND, 2019-09-23 00:00:00 [facility] UTERUS REAL TIME WITH Group IMAGE DOC, AND MATERNAL EVAL PLUS DETAILED ANATOMIC EXAMINATION, TRANSABDOMINAL APPROACH; SINGLE OR FIRST GESTATION US, obstetric, limited 2019-09-21 00:00:00 [facility] ord Medical Group US, obstetric, limited 2019-08-24 00:00:00 [facility] US, obstetric, limited 2019-08-05 00:00:00 [facility] US, transvaginal 2018-09-23 00:00:00 [facility] edical Group US, obstetric, limited 2018-05-03 00:00:00 [facility] US, obstetric, limited 2018-04-20 00:00:00 [facility] ULTRASOUND, 2018-03-29 00:00:00 [facility] UTERUS REAL TIME WITH Group IMAGE DOCUMENTAITON, TRANSVAGINAL Colonoscopy 2018-02-05 00:00:[address] [facility] [address] dical Group Cholecystectomy 2017-03-30 00:00:[address] [facility] [address] dical Group Laparoscopy 2014-03-30 00:00:00 [facility] dical Group Dilation and Curettage [facility] Tubal Ligation (Surg) [facility] Plan of Care Planned Activity Planned Date Details Comments Source Diagnostic Test 2020-04-23 urinalysis, [facility] Pending 00:00:00 dipstick [code = Group urinalysis, dipstick] Encounters Start End Encounter Admission Attending Care Care Encounter Source Date/Time Date/Time Type Type Clinicians Facility Department ID 2020-07-16 2020-07-16 Outpatient G[facility]as [facility] [id number] [facility] 08:16:00 08:16:00 0623 [facility] 2020-04-23 2020-04-23 Outpatient [facility] [id number] [place] 11:10:00 11:10:00 0125 [facility] 2020-04-23 2020-04-23 Mike RIBERAG [place] - [id number] M [facility] 00:00:00 00:00:00 Discovery sheila Mi MD: [address] [place] [phone] , Ph. [phone] 2020-04-17 2020-04-17 Outpatient [facility] [id number] [place] 11:46:00 11:46:00 0119 [facility] 2020-04-17 2020-04-17 Outpatient [facility] [id number] [place] 11:46:00 11:46:00 0122 [facility] 2020-04-06 2020-04-06 Outpatient [facility] [id number] [place] 09:57:00 09:57:00 0108 [facility] 2020-04-06 2020-04-06 Outpatient [facility] MMG [id number] [place] 09:57:00 09:57:00 0110 [facility] 2020-04-06 2020-04-06 Mike RUIZ [place] - [id number] M [facility] 00:00:00 00:00:00 Discovery sheila Mi MD: [address] [place] [phone] , Ph. [phone] 2020-03-20 2020-03-20 Outpatient [facility] MMG [id number] [place] 10:11:00 10:11:00 1222 Medical Group 2020-03-20 2020-03-20 Mike RUIZ [place] - [id number] M [facility] 00:00:00 00:00:00 Discovery sheila Mi MD: [address] [place] [phone] , Ph. [phone] 2020-02-21 2020-02-21 Outpatient [facility] MMG [id number] [place] 11:14:00 11:14:00 1124 [facility] 2020-02-21 2020-02-21 Outpatient G[facility] MMG 2019 [place] 11:14:00 11:14:00 1208 [facility] 2020-02-21 2020-02-21 Mike RIBERA [place] - [id number] [facility] 00:00:00 00:00:00 Discovery sheila Mi MD: [address] [place] [phone] , Ph. [phone] 2020-02-15 2020-02-15 Outpatient [facility] MMG 2019 [place] 02:36:00 02:36:00 1118 [facility] 2020-02-14 2020-02-14 Outpatient [facility] MMG 2019 [place] 10:23:00 10:23:00 1117 Medical Group 2020-02-14 2020-02-14 Mike RIBERA [place] - [id number] [facility] 00:00:00 00:00:00 Discovery sheila Mi MD: [address] [place] [phone] , Ph. [phone] 2020-02-07 2020-02-07 Outpatient [facility] MMG 2019 [place] 11:27:00 11:27:00 1110 [facility] 2020-02-07 2020-02-07 Mike RIBERA [place] - [id number] [facility] 00:00:00 00:00:00 Discovery sheila Mi MD: [address] [place] [phone] , Ph. [phone] 2020-02-06 2020-02-06 Outpatient [facility] MMG [id number] [place] 04:25:00 04:25:00 1109 [facility] 2020-01-24 2020-01-24 Outpatient V_Landis [facility]G MMG [id number] [place] 05:57:00 05:57:00 1027 [facility] 2020-01-24 2020-01-24 Ninfa Shaikhn MMG [place] - [id number] [place] 00:00:00 00:00:00 Discovery sheila Maldonado NP: [address] [place] [phone] , Ph. [phone] 2020-01-23 2020-01-23 Outpatient [facility] MMG [id number] [place] 11:04:00 11:04:00 1026 [facility] 2020-01-10 2020-01-10 Outpatient [facility] MMG [id number] [place] 10:24:00 10:24:00 1013 [facility] 2020-01-10 2020-01-10 Mike MMG [place] - [id number] M [facility] 00:00:00 00:00:00 Discovery sheila Mi MD: [address] [place] [phone] , Ph. [phone] 2020-01-05 2020-01-05 Outpatient G[facility] MMG [id number] [place] 09:20:00 09:20:00 1008 [facility] 2020-01-05 2020-01-05 Outpatient G[facility] MMG [id number] [place] 09:20:00 09:20:00 1012 [facility] 2019-12-13 2019-12-13 Outpatient G_[facility] MMG [id number] [place] 10:18:00 10:18:00 0915 [facility] 2019-12-13 2019-12-13 Mike MMG [place] - [id number] M [facility] 00:00:00 00:00:00 Discovery sheila Mi MD: [address] [place] [phone] , Ph. [phone] 2019-11-15 2019-11-15 Outpatient [facility] MMG [id number] [place] 09:00:00 09:00:00 0818 [facility] 2019-11-15 2019-11-15 Mike MMG [place] - [id number] M [facility] 00:00:00 00:00:00 Discovery sheila Mi MD: [address] [place] [phone] , Ph. [phone] 2019-11-09 2019-11-09 Outpatient G[facility] MMG [id number] [place] 11:41:00 11:41:00 0817 [facility] 2019-10-28 2019-10-28 Outpatient G[facility] MMG [id number] [place] 10:46:00 10:46:00 0731 [facility] 2019-10-27 2019-10-27 Outpatient [facility] MMG [id number] [facility] 04:21:00 04:21:00 0730 [facility] 2019-10-27 2019-10-27 Ninfa Garay MM [place] - [id number] [place] 00:00:00 00:00:00 Discovery Chu Maldonado: [address] [place] [phone] , Ph. [phone] 2019-10-24 2019-10-24 Outpatient [facility] MMG [id number] [place] 08:40:00 08:40:00 0727 [facility] 2019-10-20 2019-10-20 Outpatient G_[facility] MMG [id number] [place] 05:30:00 05:30:00 0723 [facility] 2019-09-25 2019-09-25 Outpatient G_[facility] MMG [id number] [place] 02:35:00 02:35:00 0628 [facility] 2019-09-23 2019-09-23 Outpatient [facility] MMG [id number] [place] 10:11:00 10:11:00 0626 [facility] 2019-09-23 2019-09-23 Aliyah MMG [place] - [id number] M [facility] 00:00:00 00:00:00 [facility] Medicmike lepe MD: [address] [phone] , Ph. [phone] 2019-09-21 2019-09-21 Outpatient [facility] MMG [id number] [place] 09:36:00 09:36:00 0625 [facility] 2019-09-19 2019-09-19 Outpatient G_[facility]G MMG [id number] [place] 11:01:00 11:01:00 0622 [facility] 2019-08-28 2019-08-28 Outpatient G[facility] MMG [id number] [place] 08:09:00 08:09:00 0531 [facility] 2019-08-26 2019-08-26 Outpatient G_[facility]as MMG MMG 2019 [place] 02:21:00 02:21:00 0529 [facility] 2019-08-26 2019-08-26 Mike RIBERA [place] - [id number] M [facility] 00:00:00 00:00:00 Discovery sheila Mi MD: [address] [place] [phone] , Ph. [phone] 2019-08-24 2019-08-24 Outpatient [facility] MMG [id number] [facility] 11:02:00 11:02:00 0527 [facility] 2019-08-24 2019-08-24 Outpatient G[facility] MMG [id number] [place] 11:02:00 11:02:00 0528 [facility] 2019-08-24 2019-08-24 Mike [facility] [place] - [id number] M [facility] 00:00:00 00:00:00 Discovery sheila Mi MD: [address] [place] [phone] , Ph. [phone] 2019-08-07 2019-08-07 Outpatient [facility] MMG [id number] [place] 09:11:00 09:11:00 0510 [facility] 2019-08-05 2019-08-05 Outpatient G_P[facility]as MMG MMG [id number] [place] 11:01:00 11:01:00 0508 [facility] 2019-08-05 2019-08-05 Mike [facility] [place] - [id number] M [facility] 00:00:00 00:00:00 Discovery sheila Mi MD: [address] [place] [phone] , Ph. [phone] 2019-03-31 2019-03-31 Outpatient ANTHONY, [facility] [id number] Univers 14:58:21 23:59:[address] [facility] 2019-03-10 2019-03-10 Outpatient ANTHONY, [facility] [id number] Univers 14:35:24 23:59:[address] [facility] 2019-02-28 2019-02-28 Outpatient ANDRIY, [facility] [id number] Univers 14:10:32 23:59:00 [facility] 2019-02-10 2019-02-10 Outpatient G_Pappas [facility] [id number] [facility] 09:23:00 09:23:00 0427 [facility] 2019-02-10 2019-02-10 Outpatient G_Pappas [facility] [id number] [facility] 09:23:00 09:23:00 0507 [facility] 2018-09-23 2018-09-23 Mike RIBERA [place] - [id number] M [facility] 00:00:00 00:00:00 Discovery sheila Mi MD: [address] [place] [phone] , Ph. [phone] 2018-05-03 2018-05-03 Mike RUIZ [place] - [id number] M [facility] 00:00:00 00:00:00 Discovery sheila Mi MD: [address] [place] [phone] , Ph. [phone] 2018-04-20 2018-04-20 Ninfa Garay MM [place] - [id number] [facility] 00:00:00 00:00:00 Discovery sheila Maldonado WHNP: [address] [facility] [address] [phone] , Ph. [phone] 2018-03-29 2018-03-29 Mike SARA [place] - [id number] M [facility] 00:00:00 00:00:00 Discovery sheila Mi MD: [address] [place] [phone] , Ph. [phone] 2018-03-16 2018-03-16 Mike RUIZ [place] - [id number] M [facility] 00:00:00 00:00:00 Discovery sheila Mi MD: [address] [place] [phone] , Ph. [phone] Results Test Description Test Time Test Comments Results Result Comments Source Urinalysis macro (dipstick) panel - Urine 2020-04-23 10:26:3 1 Test Item Value Reference Range Interpretation Comme nts Leukocytes (test code = Leukocytes) Negative Nitrite (test code = Nitrite) negative Urobilinogen (test code = Urobilinogen) .2 Protein (test code = Protein) Negative pH (test code = pH) 6.5 Blood (test code = Blood) Negative Specific Arthur (test code = Specific Arthur) 1.010 Ketone (test code = Ketone) Negative Bilirubin (test code = Bilirubin) Negative Glucose (test code = Glucose) Negative Appearance (test code = Appearance) Clear Color (test code = Color) Yellow [facility] W Auto Differential panel - [id number] 09:30:00 Test Item Value Reference Range Interpretation Comments white blood count (test code = 9.4 K/uL 4.0-11.5 white blood count) red blood count (test code = red 4.79 M/uL 3.80-5.20 blood count) hemoglobin (test code = 14.1 g/dL 10.5-15.7 hemoglobin) hematocrit (test code = 43.4 % 34.0-50.0 hematocrit) MCV [Entitic volume] (test code = 90.6 fL 86-100 79580-9) mean corpuscular hemoglobin (test 29.4 pg 26.2-33.4 code = mean corpuscular hemoglobin) mean corpuscular HGB conc (test 32.5 g/dL 30-34 code = mean corpuscular HGB conc) red cell distribution width (test 13.0 % 12.0-15.5 code = red cell distribution width) platelet count (test code = 241 K/uL 165-450 platelet count) mean platelet volume (test code = 9.2 fL 9.4-12.6 L mean platelet volume) Segmented neutrophils/100 63.4 % 44.4-80.1 leukocytes in Blood (test code = 32688-1) Immature granulocytes [#/volume] 0.0 K/uL 0.0-0.03 in Blood (test code = 78943-2) lymphocyte% (test code = 30.1 % 10.0-50.0 lymphocyte%) mono % (test code = mono %) 4.9 % 3.6-12.0 eos % (test code = eos %) 0.9 % 0.0-5.4 Basophils/100 leukocytes in 0.4 % 0.1-1.2 Unspecified specimen (test code = 70600-3) Band form neutrophils [#/volume] 5.93 K/uL 1.56-6.13 in Blood (test code = 47620-9) Lymphocytes [#/volume] in 2.8 K/uL 1.18-3.74 Unspecified specimen by Automated count (test code = 05413-7) mono # (test code = mono #) 0.46 K/uL 0.24-0.86 eos # (test code = eos #) 0.08 K/uL 0.04-0.36 basophil # (test code = basophil 0.04 K/uL 0.01-0.08 #) NRBC% (test code = NRBC%) 0 /100 WBC 0-0.2 NRBC# (test code = NRBC#) 0 [facility] - [id number] 09:12:36 Test Item Value Reference Range Interpretation Comments Leukocytes (test code = Leukocytes) Small Nitrite (test code = Nitrite) negative Urobilinogen (test code = .2 Urobilinogen) Protein (test code = Protein) 30 pH (test code = pH) 6.5 Blood (test code = Blood) Large Specific Arthur (test code = 1.025 Specific Arthur) Ketone (test code = Ketone) Trace Bilirubin (test code = Bilirubin) Negative Glucose (test code = Glucose) Negative Appearance (test code = Appearance) Clear Color (test code = Color) Yellow [facility] (dipstick[facility] panel - [id number] 09:12:36 Test Item Value Reference Range Interpretation Comments Leukocytes (test code = Leukocytes) Small Nitrite (test code = Nitrite) negative Urobilinogen (test code = .2 Urobilinogen) Protein (test code = Protein) 30 pH (test code = pH) 6.5 Blood (test code = Blood) Large Specific Arthur (test code = 1.025 Specific Arthur) Ketone (test code = Ketone) Trace Bilirubin (test code = Bilirubin) Negative Glucose (test code = Glucose) Negative Appearance (test code = Appearance) Clear Color (test code = Color) [facility] - [id number] 04:11:00 Test Item Value Reference Range Interpretation Comments white blood count (test code = 13.8 K/uL 4.0-11.5 H white blood count) red blood count (test code = red 3.70 M/uL 3.80-5.20 L blood count) hemoglobin (test code = 11.4 g/dL 10.5-15.7 hemoglobin) hematocrit (test code = 34.1 % 34.0-50.0 hematocrit) MCV [Entitic volume] (test code = 92.2 fL 86-100 69233-3) mean corpuscular hemoglobin (test 30.8 pg 26.2-33.4 code = mean corpuscular hemoglobin) mean corpuscular HGB conc (test 33.4 g/dL 30-34 code = mean corpuscular HGB conc) red cell distribution width (test 13.5 % 12.0-15.5 code = red cell distribution width) platelet count (test code = 273 K/uL 165-450 platelet count) mean platelet volume (test code = 9.8 fL 9.4-12.6 mean platelet volume) Segmented neutrophils/100 67.8 % 44.4-80.1 leukocytes in Blood (test code = 89787-8) Immature granulocytes [#/volume] 0.1 K/uL 0.0-0.03 H in Blood (test code = 10408-7) lymphocyte% (test code = 23.7 % 10.0-50.0 lymphocyte%) mono % (test code = mono %) 6.6 % 3.6-12.0 eos % (test code = eos %) 1.1 % 0.0-5.4 Basophils/100 leukocytes in 0.4 % 0.1-1.2 Unspecified specimen (test code = 16540-0) Band form neutrophils [#/volume] 9.36 K/uL 1.56-6.13 H in Blood (test code = 17704-7) Lymphocytes [#/volume] in 3.3 K/uL 1.18-3.74 Unspecified specimen by Automated count (test code = 62446-2) mono # (test code = mono #) 0.91 K/uL 0.24-0.86 H eos # (test code = eos #) 0.15 K/uL 0.04-0.36 basophil # (test code = basophil 0.05 K/uL 0.01-0.08 #) NRBC% (test code = NRBC%) 0 /100 WBC 0-0.2 NRBC# (test code = NRBC#) 0 K/uL [facility] W Auto Differential panel - [id number] 04:10:00 Test Item Value Reference Range Interpretation Comments white blood count (test code = 12.5 K/uL 4.0-11.5 H white blood count) red blood count (test code = red 4.14 M/uL 3.80-5.20 blood count) hemoglobin (test code = 12.7 g/dL 10.5-15.7 hemoglobin) hematocrit (test code = 38.2 % 34.0-50.0 hematocrit) MCV [Entitic volume] (test code = 92.3 fL 86-100 42350-0) mean corpuscular hemoglobin (test 30.7 pg 26.2-33.4 code = mean corpuscular hemoglobin) mean corpuscular HGB conc (test 33.2 g/dL 30-34 code = mean corpuscular HGB conc) red cell distribution width (test 13.7 % 12.0-15.5 code = red cell distribution width) platelet count (test code = 318 K/uL 165-450 platelet count) mean platelet volume (test code = 10.3 fL 9.4-12.6 mean platelet volume) Segmented neutrophils/100 62.1 % 44.4-80.1 leukocytes in Blood (test code = 53174-2) Immature granulocytes [#/volume] 0.1 K/uL 0.0-0.03 H in Blood (test code = 07095-2) lymphocyte% (test code = 27.9 % 10.0-50.0 lymphocyte%) mono % (test code = mono %) 8.3 % 3.6-12.0 eos % (test code = eos %) 1.0 % 0.0-5.4 Basophils/100 leukocytes in 0.3 % 0.1-1.2 Unspecified specimen (test code = 08368-3) Band form neutrophils [#/volume] 7.74 K/uL 1.56-6.13 H in Blood (test code = 61307-7) Lymphocytes [#/volume] in 3.5 K/uL 1.18-3.74 Unspecified specimen by Automated count (test code = 51017-3) mono # (test code = mono #) 1.03 K/uL 0.24-0.86 H eos # (test code = eos #) 0.12 K/uL 0.04-0.36 basophil # (test code = basophil 0.04 K/uL 0.01-0.08 #) NRBC% (test code = NRBC%) 0 /100 WBC 0-0.2 NRBC# (test code = NRBC#) 0 K/uL [facility]Blood [facility] and Indirect antibody screen panel - Blood 2020-02-28 04:10:00 Test Item Value Reference Range Interpretation Comments Rh [Type] in Blood (test code = 4+ 60152-1) ABO and Rh group panel - Blood B positive (test code = 51992-0) [facility] HospitalReagin Ab [Presence] in Serum by [id number] 04:10:00 Test Item Value Reference Range Interpretation Comments Reagin Ab [Presence] in Serum by nonreactive nonreactive RPR (test code = 59008-6) [facility] HospitalHepatitis B virus surface Ag [Presence] in Serum 2020-02-28 04:10:00 Test Item Value Reference Range Interpretation Comments .hepatitis B surface antigen (test negative negative code = .hepatitis B surface antigen) [facility] HospitalUrinalysis macro (dipstick) panel - [id number] 10:36:26 Test Item Value Reference Range Interpretation Comments Leukocytes (test code = Leukocytes) Negative Nitrite (test code = Nitrite) negative Urobilinogen (test code = .2 Urobilinogen) Protein (test code = Protein) Negative pH (test code = pH) 7.0 Blood (test code = Blood) Negative Specific Arthur (test code = 1.025 Specific Arthur) Ketone (test code = Ketone) Negative Bilirubin (test code = Bilirubin) Negative Glucose (test code = Glucose) Negative Appearance (test code = Appearance) Clear Color (test code = Color) Yellow [facility] HospitalUrinalysis macro (dipstick) panel - [id number] 10:36:26 Test Item Value Reference Range Interpretation Comments Leukocytes (test code = Leukocytes) Negative Nitrite (test code = Nitrite) negative Urobilinogen (test code = .2 Urobilinogen) Protein (test code = Protein) Negative pH (test code = pH) 7.0 Blood (test code = Blood) Negative Specific Arthur (test code = 1.025 Specific Arthur) Ketone (test code = Ketone) Negative Bilirubin (test code = Bilirubin) Negative Glucose (test code = Glucose) Negative Appearance (test code = Appearance) Clear Color (test code = Color) Yellow [facility] HospitalUrinalysis macro (dipstick) panel - [id number] 09:58:43 Test Item Value Reference Range Interpretation Comments Leukocytes (test code = Negative Leukocytes) Nitrite (test code = Nitrite) negative Urobilinogen (test code = .2 Urobilinogen) Protein (test code = Protein) Trace pH (test code = pH) 7.0 Blood (test code = Blood) Negative Specific Arthur (test code = 1.025 Specific Arthur) Ketone (test code = Ketone) Negative Bilirubin (test code = Negative Bilirubin) Glucose (test code = Glucose) Negative Appearance (test code = Slightly Cloudy Appearance) Color (test code = Color) [place] [facility] HospitalUrinalysis macro (dipstick) panel - [id number] 09:58:43 Test Item Value Reference Range Interpretation Comments Leukocytes (test code = Negative Leukocytes) Nitrite (test code = Nitrite) negative Urobilinogen (test code = .2 Urobilinogen) Protein (test code = Protein) Trace pH (test code = pH) 7.0 Blood (test code = Blood) Negative Specific Arthur (test code = 1.025 Specific Arthur) Ketone (test code = Ketone) Negative Bilirubin (test code = Negative Bilirubin) Glucose (test code = Glucose) Negative Appearance (test code = Slightly Cloudy Appearance) Color (test code = Color) [place] [facility] HospitalUrinalysis macro (dipstick) panel - [id number] 10:44:51 Test Item Value Reference Range Interpretation Comments Leukocytes (test code = Leukocytes) Negative Nitrite (test code = Nitrite) negative Urobilinogen (test code = .2 Urobilinogen) Protein (test code = Protein) Negative pH (test code = pH) 7.0 Blood (test code = Blood) Negative Specific Arthur (test code = 1.020 Specific Arthur) Ketone (test code = Ketone) Negative Bilirubin (test code = Bilirubin) Negative Glucose (test code = Glucose) Negative Appearance (test code = Appearance) Clear Color (test code = Color) Yellow [facility] HospitalUrinalysis macro (dipstick) panel - [id number] 10:44:51 Test Item Value Reference Range Interpretation Comments Leukocytes (test code = Leukocytes) Negative Nitrite (test code = Nitrite) negative Urobilinogen (test code = .2 Urobilinogen) Protein (test code = Protein) Negative pH (test code = pH) 7.0 Blood (test code = Blood) Negative Specific Arthur (test code = 1.020 Specific Arthur) Ketone (test code = Ketone) Negative Bilirubin (test code = Bilirubin) Negative Glucose (test code = Glucose) Negative Appearance (test code = Appearance) Clear Color (test code = Color) Yellow [facility] HospitalUrinalysis macro (dipstick) panel - [id number] 10:44:51 Test Item Value Reference Range Interpretation Comments Leukocytes (test code = Leukocytes) Negative Nitrite (test code = Nitrite) negative Urobilinogen (test code = .2 Urobilinogen) Protein (test code = Protein) Negative pH (test code = pH) 7.0 Blood (test code = Blood) Negative Specific Arthur (test code = 1.020 Specific Arthur) Ketone (test code = Ketone) Negative Bilirubin (test code = Bilirubin) Negative Glucose (test code = Glucose) Negative Appearance (test code = Appearance) Clear Color (test code = Color) Yellow [facility] Groupculture, vaginal/rectal, streptococcus group [id number] 00:00:00 Test Item Value Reference Range Interpretation Comments group B strep (test code = group B abnormal A strep) group B strep rflx sens if pos (test negative code = group B strep rflx sens if pos) [facility] Groupculture, vaginal/rectal, streptococcus group [id number] 00:00:00 Test Item Value Reference Range Interpretation Comments group B strep (test code = group B abnormal A strep) group B strep rflx sens if pos (test negative code = group B strep rflx sens if pos) [facility] Groupculture, vaginal/rectal, streptococcus group [id number] 00:00:00 Test Item Value Reference Range Interpretation Comments group B strep (test code = group B abnormal A strep) group B strep rflx sens if pos (test negative code = group B strep rflx sens if pos) [facility] GroupUrinalysis macro (dipstick) panel - [id number] 08:48:29 Test Item Value Reference Range Interpretation Comments Leukocytes (test code = Leukocytes) Negative Nitrite (test code = Nitrite) negative Urobilinogen (test code = .2 Urobilinogen) Protein (test code = Protein) Negative pH (test code = pH) 7.0 Blood (test code = Blood) Negative Specific Arthur (test code = 1.020 Specific Arthur) Ketone (test code = Ketone) Small Bilirubin (test code = Bilirubin) Negative Glucose (test code = Glucose) Negative Appearance (test code = Appearance) Clear Color (test code = Color) Yellow [facility] GroupUrinalysis macro (dipstick) panel - [id number] 08:48:29 Test Item Value Reference Range Interpretation Comments Leukocytes (test code = Leukocytes) Negative Nitrite (test code = Nitrite) negative Urobilinogen (test code = .2 Urobilinogen) Protein (test code = Protein) Negative pH (test code = pH) 7.0 Blood (test code = Blood) Negative Specific Arthur (test code = 1.020 Specific Arthur) Ketone (test code = Ketone) Small Bilirubin (test code = Bilirubin) Negative Glucose (test code = Glucose) Negative Appearance (test code = Appearance) Clear Color (test code = Color) Yellow [facility] HospitalUrinalysis macro (dipstick) panel - [id number] 08:48:29 Test Item Value Reference Range Interpretation Comments Leukocytes (test code = Leukocytes) Negative Nitrite (test code = Nitrite) negative Urobilinogen (test code = .2 Urobilinogen) Protein (test code = Protein) Negative pH (test code = pH) 7.0 Blood (test code = Blood) Negative Specific Arthur (test code = 1.020 Specific Arthur) Ketone (test code = Ketone) Small Bilirubin (test code = Bilirubin) Negative Glucose (test code = Glucose) Negative Appearance (test code = Appearance) Clear Color (test code = Color) Yellow [facility] HospitalUrinalysis macro (dipstick) panel - [id number] 08:48:29 Test Item Value Reference Range Interpretation Comments Leukocytes (test code = Leukocytes) Negative Nitrite (test code = Nitrite) negative Urobilinogen (test code = .2 Urobilinogen) Protein (test code = Protein) Negative pH (test code = pH) 7.0 Blood (test code = Blood) Negative Specific Arthur (test code = 1.020 Specific Arthur) Ketone (test code = Ketone) Small Bilirubin (test code = Bilirubin) Negative Glucose (test code = Glucose) Negative Appearance (test code = Appearance) Clear Color (test code = Color) Yellow [facility] HospitalUrinalysis macro (dipstick) panel - [id number] 08:48:29 Test Item Value Reference Range Interpretation Comments Leukocytes (test code = Leukocytes) Negative Nitrite (test code = Nitrite) negative Urobilinogen (test code = .2 Urobilinogen) Protein (test code = Protein) Negative pH (test code = pH) 7.0 Blood (test code = Blood) Negative Specific Arthur (test code = 1.020 Specific Arthur) Ketone (test code = Ketone) Small Bilirubin (test code = Bilirubin) Negative Glucose (test code = Glucose) Negative Appearance (test code = Appearance) Clear Color (test code = Color) Yellow [facility]CBC [facility] Auto Differential panel - [id number] 08:16:00 Test Item Value Reference Range Interpretation Comments white blood count (test code = 12.2 K/uL 4.0-11.5 white blood count) red blood count (test code = red 3.92 M/uL 3.80-5.20 blood count) hemoglobin (test code = 11.9 g/dL 10.5-15.7 hemoglobin) hematocrit (test code = 35.6 % 34.0-50.0 hematocrit) MCV [Entitic volume] (test code = 90.8 fL 86-100 51937-9) mean corpuscular hemoglobin (test 30.4 pg 26.2-33.4 code = mean corpuscular hemoglobin) mean corpuscular HGB conc (test 33.4 g/dL 30-34 code = mean corpuscular HGB conc) red cell distribution width (test 13.2 % 12.0-15.5 code = red cell distribution width) platelet count (test code = 252 K/uL 165-450 platelet count) mean platelet volume (test code = 9.8 fL 9.4-12.6 mean platelet volume) Segmented neutrophils/100 70.9 % 44.4-80.1 leukocytes in Blood (test code = 30785-1) Immature granulocytes [#/volume] 0.1 K/uL 0.0-0.03 H in Blood (test code = 59725-1) lymphocyte% (test code = 22.1 % 10.0-50.0 lymphocyte%) mono % (test code = mono %) 5.7 % 3.6-12.0 eos % (test code = eos %) 0.3 % 0.0-5.4 Basophils/100 leukocytes in 0.3 % 0.1-1.2 Unspecified specimen (test code = 03174-8) Band form neutrophils [#/volume] 8.66 K/uL 1.56-6.13 H in Blood (test code = 07606-8) Lymphocytes [#/volume] in 2.7 K/uL 1.18-3.74 Unspecified specimen by Automated count (test code = 64953-2) mono # (test code = mono #) 0.69 K/uL 0.24-0.86 eos # (test code = eos #) 0.04 K/uL 0.04-0.36 basophil # (test code = basophil 0.04 K/uL 0.01-0.08 #) NRBC% (test code = NRBC%) 0 /100 WBC 0-0.2 NRBC# (test code = NRBC#) 0 K/uL [facility]Blood [facility] antibody screen [Presence] in Serum or Plasma 2020-01-10 08:16:00 Test Item Value Reference Range Interpretation Comments Blood group antibody screen negative [Presence] in Serum or Plasma (test code = 890-4) [facility] HospitalHIV 1+2 Ab [Presence] in [id number] 08:16:00HIV P24 AgHIV-1/2 AbT[facility] HospitalReagin Ab [Presence] in Serum by RPR 2020-01-10 08:16:00 Test Item Value Reference Range Interpretation Comments Reagin Ab [Presence] in Serum by nonreactive nonreactive RPR (test code = 52416-3) [facility] W Auto Differential panel - [id number] 08:16:00 Test Item Value Reference Range Interpretation Comments white blood count (test code = 12.2 K/uL 4.0-11.5 white blood count) red blood count (test code = red 3.92 M/uL 3.80-5.20 blood count) hemoglobin (test code = 11.9 g/dL 10.5-15.7 hemoglobin) hematocrit (test code = 35.6 % 34.0-50.0 hematocrit) MCV [Entitic volume] (test code = 90.8 fL 86-100 78373-5) mean corpuscular hemoglobin (test 30.4 pg 26.2-33.4 code = mean corpuscular hemoglobin) mean corpuscular HGB conc (test 33.4 g/dL 30-34 code = mean corpuscular HGB conc) red cell distribution width (test 13.2 % 12.0-15.5 code = red cell distribution width) platelet count (test code = 252 K/uL 165-450 platelet count) mean platelet volume (test code = 9.8 fL 9.4-12.6 mean platelet volume) Segmented neutrophils/100 70.9 % 44.4-80.1 leukocytes in Blood (test code = 27684-9) Immature granulocytes [#/volume] 0.1 K/uL 0.0-0.03 H in Blood (test code = 07512-1) lymphocyte% (test code = 22.1 % 10.0-50.0 lymphocyte%) mono % (test code = mono %) 5.7 % 3.6-12.0 eos % (test code = eos %) 0.3 % 0.0-5.4 Basophils/100 leukocytes in 0.3 % 0.1-1.2 Unspecified specimen (test code = 95495-0) Band form neutrophils [#/volume] 8.66 K/uL 1.56-6.13 H in Blood (test code = 22925-2) Lymphocytes [#/volume] in 2.7 K/uL 1.18-3.74 Unspecified specimen by Automated count (test code = 41399-2) mono # (test code = mono #) 0.69 K/uL 0.24-0.86 eos # (test code = eos #) 0.04 K/uL 0.04-0.36 basophil # (test code = basophil 0.04 K/uL 0.01-0.08 #) NRBC% (test code = NRBC%) 0 /100 WBC 0-0.2 NRBC# (test code = NRBC#) 0 K/uL [facility] HospitalBlood [facility] antibody screen [Presence] in Serum or Plasma 2020-01-10 08:16:00 Test Item Value Reference Range Interpretation Comments Blood group antibody screen negative [Presence] in Serum or Plasma (test code = 890-4) [facility] HospitalHIV [facility]+2 Ab [Presence] in [id number] 08:16:00HIV P24 AgHIV-1/2 [facility]Mer[facility]aksReagin Ab [Presence] in Serum by RPR 2020-01-10 08:16:00 Test Item Value Reference Range Interpretation Comments Reagin Ab [Presence] in Serum by nonreactive nonreactive RPR (test code = 22698-4) [facility] HospitalCB W Auto Differential panel - [id number] 08:16:00 Test Item Value Reference Range Interpretation Comments white blood count (test code = 12.2 K/uL 4.0-11.5 white blood count) red blood count (test code = red 3.92 M/uL 3.80-5.20 blood count) hemoglobin (test code = 11.9 g/dL 10.5-15.7 hemoglobin) hematocrit (test code = 35.6 % 34.0-50.0 hematocrit) MCV [Entitic volume] (test code = 90.8 fL 86-100 27084-0) mean corpuscular hemoglobin (test 30.4 pg 26.2-33.4 code = mean corpuscular hemoglobin) mean corpuscular HGB conc (test 33.4 g/dL 30-34 code = mean corpuscular HGB conc) red cell distribution width (test 13.2 % 12.0-15.5 code = red cell distribution width) platelet count (test code = 252 K/uL 165-450 platelet count) mean platelet volume (test code = 9.8 fL 9.4-12.6 mean platelet volume) Segmented neutrophils/100 70.9 % 44.4-80.1 leukocytes in Blood (test code = 54691-1) Immature granulocytes [#/volume] 0.1 K/uL 0.0-0.03 H in Blood (test code = 01330-0) lymphocyte% (test code = 22.1 % 10.0-50.0 lymphocyte%) mono % (test code = mono %) 5.7 % 3.6-12.0 eos % (test code = eos %) 0.3 % 0.0-5.4 Basophils/100 leukocytes in 0.3 % 0.1-1.2 Unspecified specimen (test code = 73365-6) Band form neutrophils [#/volume] 8.66 K/uL 1.56-6.13 H in Blood (test code = 21195-8) Lymphocytes [#/volume] in 2.7 K/uL 1.18-3.74 Unspecified specimen by Automated count (test code = 19027-7) mono # (test code = mono #) 0.69 K/uL 0.24-0.86 eos # (test code = eos #) 0.04 K/uL 0.04-0.36 basophil # (test code = basophil 0.04 K/uL 0.01-0.08 #) NRBC% (test code = NRBC%) 0 /100 WBC 0-0.2 NRBC# (test code = NRBC#) 0 K/uL [facility] [Presence] in Serum or Plasma 2020-01-10 08:16:00 Test Item Value Reference Range Interpretation Comments Blood group antibody screen negative [Presence] in Serum or Plasma (test code = 890-4) [facility] GroupHIV [facility]+2 Ab [Presence] in [id number] 08:16:00HIV P24 AgHIV-1/2 AbMatagorda Medical GroupReagin Ab [Presence] in Serum by RPR 2020-01-10 08:16:00 Test Item Value Reference Range Interpretation Comments Reagin Ab [Presence] in Serum by nonreactive nonreactive RPR (test code = 27233-8) [facility] GroupGlucose [Mass/volume] in Serum or Plasma --1 hour post dose [id number] 11:39:00 Test Item Value Reference Range Interpretation Comments Results (test code = Results) 111 [facility] GroupGlucose [Mass/volume] in Serum or Plasma --1 hour post dose [id number] 11:39:00 Test Item Value Reference Range Interpretation Comments Results (test code = Results) 111 [facility] GroupUrinalysis macro (dipstick) panel - [id number] 09:57:40 Test Item Value Reference Range Interpretation Comments Leukocytes (test code = Leukocytes) Negative Nitrite (test code = Nitrite) negative Urobilinogen (test code = .2 Urobilinogen) Protein (test code = Protein) Trace pH (test code = pH) 6.5 Blood (test code = Blood) Negative Specific Arthur (test code = 1.025 Specific Arthur) Ketone (test code = Ketone) Trace Bilirubin (test code = Bilirubin) Negative Glucose (test code = Glucose) Negative Appearance (test code = Appearance) Clear Color (test code = Color) Yellow [facility] GroupUrinalysis macro (dipstick) panel - [id number] 09:57:40 Test Item Value Reference Range Interpretation Comments Leukocytes (test code = Leukocytes) Negative Nitrite (test code = Nitrite) negative Urobilinogen (test code = .2 Urobilinogen) Protein (test code = Protein) Trace pH (test code = pH) 6.5 Blood (test code = Blood) Negative Specific Arthur (test code = 1.025 Specific Arthur) Ketone (test code = Ketone) Trace Bilirubin (test code = Bilirubin) Negative Glucose (test code = Glucose) Negative Appearance (test code = Appearance) Clear Color (test code = Color) Yellow [facility] HospitalUrinalysis macro (dipstick) panel - [id number] 11:08:03 Test Item Value Reference Range Interpretation Comments Leukocytes (test code = Negative Leukocytes) Nitrite (test code = Nitrite) negative Urobilinogen (test code = .2 Urobilinogen) Protein (test code = Protein) 30 pH (test code = pH) 7.5 Blood (test code = Blood) Negative Specific Arthur (test code = 1.025 Specific Arthur) Ketone (test code = Ketone) Large Bilirubin (test code = Bilirubin) Negative Glucose (test code = Glucose) Negative Appearance (test code = Clear Appearance) Color (test code = Color) Dark Yellow [facility] HospitalUrinalysis macro (dipstick) panel - [id number] 11:08:03 Test Item Value Reference Range Interpretation Comments Leukocytes (test code = Negative Leukocytes) Nitrite (test code = Nitrite) negative Urobilinogen (test code = .2 Urobilinogen) Protein (test code = Protein) 30 pH (test code = pH) 7.5 Blood (test code = Blood) Negative Specific Arthur (test code = 1.025 Specific Arthur) Ketone (test code = Ketone) Large Bilirubin (test code = Bilirubin) Negative Glucose (test code = Glucose) Negative Appearance (test code = Clear Appearance) Color (test code = Color) Dark Yellow [facility] HospitalUrinalysis macro (dipstick) panel - [id number] 15:57:13 Test Item Value Reference Range Interpretation Comments Leukocytes (test code = Leukocytes) Negative Nitrite (test code = Nitrite) negative Urobilinogen (test code = .2 Urobilinogen) Protein (test code = Protein) Trace pH (test code = pH) 6.5 Blood (test code = Blood) Negative Specific Arthur (test code = 1.030 Specific Arthur) Ketone (test code = Ketone) Trace Bilirubin (test code = Bilirubin) Negative Glucose (test code = Glucose) Negative Appearance (test code = Appearance) Clear Color (test code = Color) Yellow [facility] HospitalUrinalysis macro (dipstick) panel - [id number] 15:57:13 Test Item Value Reference Range Interpretation Comments Leukocytes (test code = Leukocytes) Negative Nitrite (test code = Nitrite) negative Urobilinogen (test code = .2 Urobilinogen) Protein (test code = Protein) Trace pH (test code = pH) 6.5 Blood (test code = Blood) Negative Specific Arthur (test code = 1.030 Specific Arthur) Ketone (test code = Ketone) Trace Bilirubin (test code = Bilirubin) Negative Glucose (test code = Glucose) Negative Appearance (test code = Appearance) Clear Color (test code = Color) Yellow [facility] HospitalUrinalysis macro (dipstick) panel - [id number] 14:02:03 Test Item Value Reference Range Interpretation Comments Leukocytes (test code = Leukocytes) Negative Nitrite (test code = Nitrite) negative Urobilinogen (test code = .2 Urobilinogen) Protein (test code = Protein) Negative pH (test code = pH) 7.0 Blood (test code = Blood) Negative Specific Arthur (test code = 1.025 Specific Arthur) Ketone (test code = Ketone) Negative Bilirubin (test code = Bilirubin) Negative Glucose (test code = Glucose) Negative Appearance (test code = Appearance) Clear Color (test code = Color) Yellow [facility] HospitalUr[facility] macro (dipstick) panel - [id number] 14:02:03 Test Item Value Reference Range Interpretation Comments Leukocytes (test code = Leukocytes) Negative Nitrite (test code = Nitrite) negative Urobilinogen (test code = .2 Urobilinogen) Protein (test code = Protein) Negative pH (test code = pH) 7.0 Blood (test code = Blood) Negative Specific Arthur (test code = 1.025 Specific Arthur) Ketone (test code = Ketone) Negative Bilirubin (test code = Bilirubin) Negative Glucose (test code = Glucose) Negative Appearance (test code = Appearance) Clear Color (test code = Color) Yellow [facility] HospitalChromosome 13+18+21+X+Y aneuploidy in Blood by Molecular genetics method [id number] 00:00:00 Test Item Value Reference Range Interpretation Comments report summary (test code see notes = report summary) report note (test code = see notes report note) trisomy 13 age-based risk score (test code = trisomy 13 age-based risk score) trisomy 13 risk score (test code = trisomy 13 risk score) trisomy 13 age-based risk 1/2,806 (0.04%) text (test code = trisomy 13 age-based risk text) trisomy 13 risk score text <1/10,000 (<0.01%) (test code = trisomy 13 risk score text) trisomy 13 age-based risk fraction (test code = trisomy 13 age-based risk fraction) trisomy 13 risk score fraction (test code = trisomy 13 risk score fraction) trisomy 13 result text low risk (test code = trisomy 13 result text) trisomy 13 result comments see notes (test code = trisomy 13 result comments) trisomy 18 age-based risk score (test code = trisomy 18 age-based risk score) trisomy 18 risk score (test code = trisomy 18 risk score) trisomy 18 age-based risk 1/891 (0.11%) text (test code = trisomy 18 age-based risk text) trisomy 18 risk score text <1/10,000 (<0.01%) (test code = trisomy 18 risk score text) trisomy 18 age-based risk fraction (test code = trisomy 18 age-based risk fraction) trisomy 18 risk score fraction (test code = trisomy 18 risk score fraction) trisomy 18 result text low risk (test code = trisomy 18 result text) trisomy 18 result comments see notes (test code = trisomy 18 result comments) trisomy 21 age-based risk score (test code = trisomy 21 age-based risk score) trisomy 21 risk score (test code = trisomy 21 risk score) trisomy 21 age-based risk 1/383 (0.26%) text (test code = trisomy 21 age-based risk text) trisomy 21 risk score text <1/10,000 (<0.01%) (test code = trisomy 21 risk score text) trisomy 21 age-based risk fraction (test code = trisomy 21 age-based risk fraction) trisomy 21 risk score fraction (test code = trisomy 21 risk score fraction) trisomy 21 result text low risk (test code = trisomy 21 result text) trisomy 21 result comments see notes (test code = trisomy 21 result comments) monosomy X age-based risk score (test code = monosomy X age-based risk score) monosomy X risk score (test code = monosomy X risk score) monosomy X age-based risk 1/255 (0.39%) text (test code = monosomy X age-based risk text) monosomy X risk score text <1/10,000 (<0.01%) (test code = monosomy X risk score text) monosomy X age-based risk fraction (test code = monosomy X age-based risk fraction) monosomy X risk score fraction (test code = monosomy X risk score fraction) monosomy X result text low risk (test code = monosomy X result text) monosomy X result comments see notes (test code = monosomy X result comments) triploidy result text low risk (test code = triploidy result text) triploidy result comments see notes (test code = triploidy result comments) gender of fetus (test code male = gender of fetus) fraction (in %) 10.6 % (test code = fraction (in %)) fraction (test code 10.6% = fraction) footnotes (test code = see notes footnotes) boiler plate text (test see notes code = boiler plate text) references (test code = see notes references) approvals (test code = see notes approvals) contacts (test code = see notes contacts) [facility] HospitalGenetic screen in Unspecified specimen by Molecular genetics method [id number] 00:00:00 Test Item Value Reference Range Interpretation Comments alpha-thalassemia (test code = negative alpha-thalassemia) beta-hemoglobinopathies (test code negative = beta-hemoglobinopathies) rhys disease (test code = negative rhys disease) cystic fibrosis (test code = cystic negative fibrosis) duchenne/nichole muscular dystrophy negative (test code = duchenne/nichole muscular dystrophy) familial dysautonomia (test code = negative familial dysautonomia) fragile X syndrome (test code = negative fragile X syndrome) galactosemia (test code = negative galactosemia) gaucher disease (test code = negative gaucher disease) 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 (test yes code = IS this patient ?) did this patient sign the patient yes acknowledgement? (test code = did this patient sign the patient acknowledgement?) did the ordering clinician sign the yes statement of informed consent? (test code = did the ordering clinician sign the statement of informed consent?) zip code of the ordering facility [address] (test code = zip code of the ordering facility) IS the patient currently using no hormonal medications? (test code = IS the patient currently using hormonal medications?) patient ethnicity (test code = patient ethnicity) report note (test code = report see notes note) footnotes (test code = footnotes) see notes references (test code = references) see notes approvals (test code = approvals) see notes contacts (test code = contacts) see notes [facility], LB + reflex to HR HPV if [id number] 00:00:00 Test Item Value Reference Range Interpretation Comments TP reflex HPV ASCUS (test code = TP normal reflex HPV ASCUS) [facility], LB + reflex to HR HPV if [id number] 00:00:00 Test Item Value Reference Range Interpretation Comments TP reflex HPV ASCUS (test code = TP normal reflex HPV ASCUS) [facility], [id number] 09:59:16 Test Item Value Reference Range Interpretation Comments Test (test code = positive Test) [facility], [id number] 09:59:16 Test Item Value Reference Range Interpretation Comments Test (test code = positive Test) [facility], [id number] 09:59:16 Test Item Value Reference Range Interpretation Comments Test (test code = positive Test) [facility] GroupUr[facility] macro (dipstick) panel - [id number] 09:57:56 Test Item Value Reference Range Interpretation Comments Leukocytes (test code = Leukocytes) Negative Nitrite (test code = Nitrite) negative Urobilinogen (test code = .2 Urobilinogen) Protein (test code = Protein) 30 pH (test code = pH) 7.5 Blood (test code = Blood) Negative Specific Arthur (test code = 1.020 Specific Arthur) Ketone (test code = Ketone) Negative Bilirubin (test code = Bilirubin) Negative Glucose (test code = Glucose) Negative Appearance (test code = Appearance) Clear Color (test code = Color) Yellow [facility] HospitalUrinalysis macro (dipstick) panel - [id number] 09:57:56 Test Item Value Reference Range Interpretation Comments Leukocytes (test code = Leukocytes) Negative Nitrite (test code = Nitrite) negative Urobilinogen (test code = .2 Urobilinogen) Protein (test code = Protein) 30 pH (test code = pH) 7.5 Blood (test code = Blood) Negative Specific Arthur (test code = 1.020 Specific Arthur) Ketone (test code = Ketone) Negative Bilirubin (test code = Bilirubin) Negative Glucose (test code = Glucose) Negative Appearance (test code = Appearance) Clear Color (test code = Color) Yellow [facility] HospitalUrinalysis macro (dipstick) panel - [id number] 09:57:56 Test Item Value Reference Range Interpretation Comments Leukocytes (test code = Leukocytes) Negative Nitrite (test code = Nitrite) negative Urobilinogen (test code = .2 Urobilinogen) Protein (test code = Protein) 30 pH (test code = pH) 7.5 Blood (test code = Blood) Negative Specific Arthur (test code = 1.020 Specific Arthur) Ketone (test code = Ketone) Negative Bilirubin (test code = Bilirubin) Negative Glucose (test code = Glucose) Negative Appearance (test code = Appearance) Clear Color (test code = Color) Yellow [facility] HospitalProgesterone [Mass/volume] in Serum or [id number] 09:08:00 Test Item Value Reference Range Interpretation Comments Progesterone [Mass/volume] in 12.9 NG/mL . Serum or Plasma (test code = 2839-9) [facility] HospitalHepatitis B virus surface Ag [Presence] in Serum 2019-08-05 09:08:00 Test Item Value Reference Range Interpretation Comments .hepatitis B surface antigen (test negative negative code = .hepatitis B surface antigen) [facility] HospitalProgesterone [Mass/volume] in Serum or [id number] 09:08:00 Test Item Value Reference Range Interpretation Comments Progesterone [Mass/volume] in 12.9 NG/mL . Serum or Plasma (test code = 2839-9) [facility] HospitalHepatitis B virus surface Ag [Presence] in Serum 2019-08-05 09:08:00 Test Item Value Reference Range Interpretation Comments .hepatitis B surface antigen (test negative negative code = .hepatitis B surface antigen) [facility] W Auto Differential panel - [id number] 09:05:00 Test Item Value Reference Range Interpretation Comments white blood count (test code = 8.6 K/uL 4.0-11.5 white blood count) red blood count (test code = red 4.34 M/uL 3.80-5.20 blood count) hemoglobin (test code = 13.3 g/dL 10.5-15.7 hemoglobin) hematocrit (test code = 40.9 % 34.0-50.0 hematocrit) MCV [Entitic volume] (test code = 94.2 fL 86-100 32354-6) mean corpuscular hemoglobin (test 30.6 pg 26.2-33.4 code = mean corpuscular hemoglobin) mean corpuscular HGB conc (test 32.5 g/dL 30-34 code = mean corpuscular HGB conc) red cell distribution width (test 13.5 % 12.0-15.5 code = red cell distribution width) platelet count (test code = 267 K/uL 165-450 platelet count) mean platelet volume (test code = 9.9 fL 9.4-12.6 mean platelet volume) Segmented neutrophils/100 65.4 % 44.4-80.1 leukocytes in Blood (test code = 30535-6) Immature granulocytes [#/volume] 0.0 K/uL 0.0-0.03 in Blood (test code = 58582-5) lymphocyte% (test code = 26.9 % 10.0-50.0 lymphocyte%) mono % (test code = mono %) 6.4 % 3.6-12.0 eos % (test code = eos %) 0.7 % 0.0-5.4 Basophils/100 leukocytes in 0.3 % 0.1-1.2 Unspecified specimen (test code = 61541-0) Band form neutrophils [#/volume] 5.61 K/uL 1.56-6.13 in Blood (test code = 86234-1) Lymphocytes [#/volume] in 2.3 K/uL 1.18-3.74 Unspecified specimen by Automated count (test code = 36329-7) mono # (test code = mono #) 0.55 K/uL 0.24-0.86 eos # (test code = eos #) 0.06 K/uL 0.04-0.36 basophil # (test code = basophil 0.03 K/uL 0.01-0.08 #) NRBC% (test code = NRBC%) 0 /100 WBC 0-0.2 NRBC# (test code = NRBC#) 0 K/uL [facility] GroupDifferential panel, method unspecified - [id number] 09:05:00NeutrophilsBandLymphocyteMonocyteEosinophilPlatelet EstimateMatarda Medical GroupABO & Rh group [Type] in [id number] 09:05:00 Test Item Value Reference Range Interpretation Comments Rh [Type] in Blood (test code = 4+ 43831-9) ABO and Rh group panel - Blood B positive (test code = 13131-3) [facility] GroupBlood group antibody screen [Presence] in Serum or Plasma 2019-08-05 09:05:00 Test Item Value Reference Range Interpretation Comments Blood group antibody screen negative [Presence] in Serum or Plasma (test code = 890-4) [facility] GroupChlamydia trachomatis+Neisseria gonorrhoeae DNA [Presence] in Urine by CHELSEY with probe [id number] 09:05:00 Test Item Value Reference Range Interpretation Comments Chlamydia sp Ag [Presence] in CT not detected Unspecified specimen (test code = 55725-5) [id number] (test code = ikz6509) NG not detected [facility] GroupHIV 1+2 Ab [Presence] in [id number] 09:05:00HIV P24 AgHIV-1/2 AbMatagorda Medical GroupBacteria identified in Urine by Culture 2019-08-05 09:05:00 Test Item Value Reference Range Interpretation Comments Bacteria identified in no growth at 48 hrs. Urine by Culture (test code = 630-4) [facility] HospitalReagin Ab [Presence] in Serum by [id number] 09:05:00 Test Item Value Reference Range Interpretation Comments Reagin Ab [Presence] in Serum by nonreactive nonreactive RPR (test code = 03614-1) [facility] W Auto Differential panel - [id number] 09:05:00 Test Item Value Reference Range Interpretation Comments white blood count (test code = 8.6 K/uL 4.0-11.5 white blood count) red blood count (test code = red 4.34 M/uL 3.80-5.20 blood count) hemoglobin (test code = 13.3 g/dL 10.5-15.7 hemoglobin) hematocrit (test code = 40.9 % 34.0-50.0 hematocrit) MCV [Entitic volume] (test code = 94.2 fL 86-100 51535-5) mean corpuscular hemoglobin (test 30.6 pg 26.2-33.4 code = mean corpuscular hemoglobin) mean corpuscular HGB conc (test 32.5 g/dL 30-34 code = mean corpuscular HGB conc) red cell distribution width (test 13.5 % 12.0-15.5 code = red cell distribution width) platelet count (test code = 267 K/uL 165-450 platelet count) mean platelet volume (test code = 9.9 fL 9.4-12.6 mean platelet volume) Segmented neutrophils/100 65.4 % 44.4-80.1 leukocytes in Blood (test code = 07566-8) Immature granulocytes [#/volume] 0.0 K/uL 0.0-0.03 in Blood (test code = 83138-9) lymphocyte% (test code = 26.9 % 10.0-50.0 lymphocyte%) mono % (test code = mono %) 6.4 % 3.6-12.0 eos % (test code = eos %) 0.7 % 0.0-5.4 Basophils/100 leukocytes in 0.3 % 0.1-1.2 Unspecified specimen (test code = 21997-2) Band form neutrophils [#/volume] 5.61 K/uL 1.56-6.13 in Blood (test code = 81673-6) Lymphocytes [#/volume] in 2.3 K/uL 1.18-3.74 Unspecified specimen by Automated count (test code = 66215-5) mono # (test code = mono #) 0.55 K/uL 0.24-0.86 eos # (test code = eos #) 0.06 K/uL 0.04-0.36 basophil # (test code = basophil 0.03 K/uL 0.01-0.08 #) NRBC% (test code = NRBC%) 0 /100 WBC 0-0.2 NRBC# (test code = NRBC#) 0 K/uL [facility] GroupDifferential panel, method unspecified - [id number] 09:05:00NeutrophilsBandLymphocyteMonocyteEosinophilPlatelet EstimateMatagorda Medical GroupABO & Rh group [Type] in [id number] 09:05:00 Test Item Value Reference Range Interpretation Comments Rh [Type] in Blood (test code = 4+ 68297-2) ABO and Rh group panel - Blood B positive (test code = 10996-6) [facility] GroupBlood group antibody screen [Presence] in Serum or Plasma 2019-08-05 09:05:00 Test Item Value Reference Range Interpretation Comments Blood group antibody screen negative [Presence] in Serum or Plasma (test code = 890-4) [facility] GroupChlamydia trachomatis+Neisseria gonorrhoeae DNA [Presence] in Urine by CHELSEY with probe [id number] 09:05:00 Test Item Value Reference Range Interpretation Comments Chlamydia sp Ag [Presence] in CT not detected Unspecified specimen (test code = 02661-9) [id number] (test code = mfj1912) NG not detected [facility] GroupHIV 1+2 Ab [Presence] in [id number] 09:05:00HIV P24 AgHIV-1/2 AbMatagorda Medical GroupBacteria identified in Urine by Culture 2019-08-05 09:05:00 Test Item Value Reference Range Interpretation Comments Bacteria identified in no growth at 48 hrs. Urine by Culture (test code = 630-4) [facility] HospitalReagin Ab [Presence] in Serum by [id number] 09:05:00 Test Item Value Reference Range Interpretation Comments Reagin Ab [Presence] in Serum by nonreactive nonreactive RPR (test code = 93997-6) [facility] HospitalUrinalysis macro (dipstick) panel - [id number] 10:42:00 Test Item Value Reference Range Interpretation Comments Leukocytes (test code = Small Leukocytes) Nitrite (test code = Nitrite) negative Urobilinogen (test code = .2 Urobilinogen) Protein (test code = Protein) Negative pH (test code = pH) 7.0 Blood (test code = Blood) Negative Specific Arthur (test code = 1.020 Specific Arthur) Ketone (test code = Ketone) Negative Bilirubin (test code = Bilirubin) Negative Glucose (test code = Glucose) Negative Appearance (test code = Clear Appearance) Color (test code = Color) Dark Yellow [facility] HospitalUrinalysis macro (dipstick) panel - [id number] 09:33:32 Test Item Value Reference Range Interpretation Comments Leukocytes (test code = Leukocytes) Negative Nitrite (test code = Nitrite) negative Urobilinogen (test code = .2 Urobilinogen) Protein (test code = Protein) Negative pH (test code = pH) 6.0 Blood (test code = Blood) Negative Specific Arthur (test code = 1.030 Specific Arthur) Ketone (test code = Ketone) Trace Bilirubin (test code = Bilirubin) Negative Glucose (test code = Glucose) Negative Appearance (test code = Appearance) Clear Color (test code = Color) Yellow [facility] HospitalUrinalysis macro (dipstick) panel - [id number] 11:20:00 Test Item Value Reference Range Interpretation Comments Leukocytes (test code = Leukocytes) Negative Nitrite (test code = Nitrite) negative Urobilinogen (test code = .2 Urobilinogen) Protein (test code = Protein) 30 pH (test code = pH) 6.0 Blood (test code = Blood) Negative Specific Arthur (test code = 1.025 Specific Arthur) Ketone (test code = Ketone) Small Bilirubin (test code = Bilirubin) Negative Glucose (test code = Glucose) Negative Appearance (test code = Appearance) Clear Color (test code = Color) Yellow [facility] HospitalUrinalysis macro (dipstick) panel - [id number] 11:20:00 Test Item Value Reference Range Interpretation Comments Leukocytes (test code = Leukocytes) Negative Nitrite (test code = Nitrite) negative Urobilinogen (test code = .2 Urobilinogen) Protein (test code = Protein) 30 pH (test code = pH) 6.0 Blood (test code = Blood) Negative Specific Arthur (test code = 1.025 Specific Arthur) Ketone (test code = Ketone) Small Bilirubin (test code = Bilirubin) Negative Glucose (test code = Glucose) Negative Appearance (test code = Appearance) Clear Color (test code = Color) Yellow [facility] HospitalUrinalysis macro (dipstick) panel - [id number] 11:20:00 Test Item Value Reference Range Interpretation Comments Leukocytes (test code = Leukocytes) Negative Nitrite (test code = Nitrite) negative Urobilinogen (test code = .2 Urobilinogen) Protein (test code = Protein) 30 pH (test code = pH) 6.0 Blood (test code = Blood) Negative Specific Arthur (test code = 1.025 Specific Arthur) Ketone (test code = Ketone) Small Bilirubin (test code = Bilirubin) Negative Glucose (test code = Glucose) Negative Appearance (test code = Appearance) Clear Color (test code = Color) Yellow [facility] HospitalUrinalysis macro (dipstick) panel - [id number] 11:20:00 Test Item Value Reference Range Interpretation Comments Leukocytes (test code = Leukocytes) Negative Nitrite (test code = Nitrite) negative Urobilinogen (test code = .2 Urobilinogen) Protein (test code = Protein) 30 pH (test code = pH) 6.0 Blood (test code = Blood) Negative Specific Arthur (test code = 1.025 Specific Arthur) Ketone (test code = Ketone) Small Bilirubin (test code = Bilirubin) Negative Glucose (test code = Glucose) Negative Appearance (test code = Appearance) Clear Color (test code = Color) Yellow [facility] HospitalUrinalysis macro (dipstick) panel - [id number] 13:54:39 Test Item Value Reference Range Interpretation Comments Leukocytes (test code = Leukocytes) Negative Nitrite (test code = Nitrite) negative Urobilinogen (test code = .2 Urobilinogen) Protein (test code = Protein) 30 pH (test code = pH) 6.0 Blood (test code = Blood) Negative Specific Arthur (test code = 1.030 Specific Arthur) Ketone (test code = Ketone) Large Bilirubin (test code = Bilirubin) Negative Glucose (test code = Glucose) Negative Appearance (test code = Appearance) Clear Color (test code = Color) Yellow [facility] HospitalUrinalysis macro (dipstick) panel - [id number] 13:54:39 Test Item Value Reference Range Interpretation Comments Leukocytes (test code = Leukocytes) Negative Nitrite (test code = Nitrite) negative Urobilinogen (test code = .2 Urobilinogen) Protein (test code = Protein) 30 pH (test code = pH) 6.0 Blood (test code = Blood) Negative Specific Arthur (test code = 1.030 Specific Arthur) Ketone (test code = Ketone) Large Bilirubin (test code = Bilirubin) Negative Glucose (test code = Glucose) Negative Appearance (test code = Appearance) Clear Color (test code = Color) Yellow [facility] HospitalUrinalysis macro (dipstick) panel - [id number] 13:54:39 Test Item Value Reference Range Interpretation Comments Leukocytes (test code = Leukocytes) Negative Nitrite (test code = Nitrite) negative Urobilinogen (test code = .2 Urobilinogen) Protein (test code = Protein) 30 pH (test code = pH) 6.0 Blood (test code = Blood) Negative Specific Arthur (test code = 1.030 Specific Arthur) Ketone (test code = Ketone) Large Bilirubin (test code = Bilirubin) Negative Glucose (test code = Glucose) Negative Appearance (test code = Appearance) Clear Color (test code = Color) Yellow [facility] HospitalUrinalysis macro (dipstick) panel - [id number] 13:54:39 Test Item Value Reference Range Interpretation Comments Leukocytes (test code = Leukocytes) Negative Nitrite (test code = Nitrite) negative Urobilinogen (test code = .2 Urobilinogen) Protein (test code = Protein) 30 pH (test code = pH) 6.0 Blood (test code = Blood) Negative Specific Arthur (test code = 1.030 Specific Arthur) Ketone (test code = Ketone) Large Bilirubin (test code = Bilirubin) Negative Glucose (test code = Glucose) Negative Appearance (test code = Appearance) Clear Color (test code = Color) Yellow [facility] W Auto Differential panel - [id number] 01:36:00 Test Item Value Reference Range Interpretation Comments white blood count (test code = 14.4 K/uL 4.0-11.5 H white blood count) red blood count (test code = red 4.66 M/uL 3.80-5.20 blood count) Hemoglobin [Mass/volume] in Blood 13.9 g/dL 10.5-15.7 (test code = 718-7) hematocrit (test code = hematocrit) 40.2 % 34.0-50.0 Erythrocyte mean corpuscular volume 86.2 fL 78-98 [Entitic volume] (test code = 09409-4) Erythrocyte mean corpuscular 29.8 pg 26.2-33.4 hemoglobin [Entitic mass] (test code = 76170-5) mean corpuscular HGB conc (test 34.6 g/dL 31.5-36.2 code = mean corpuscular HGB conc) red cell distribution width (test 12.1 % 11.5-15.5 code = red cell distribution width) Platelets [#/volume] in Blood (test 276 K/uL 137-338 code = 05710-2) Platelet mean volume [Entitic 7.1 fL 8.4-11.8 L volume] in Blood (test code = 75559-0) Neutrophils.band form/100 70.9 % 44.4-80.1 leukocytes in Blood (test code = 58016-0) Lymphocytes/100 leukocytes in Body 22.6 % 10.0-50.0 fluid (test code = 23533-7) Monocytes/100 leukocytes in Blood 5.5 % 3.6-12.04 by Automated count (test code = 5905-5) Eosinophils/100 leukocytes in Blood 0.3 % 0.0-5.41 by Automated count (test code = 713-8) Basophils/100 leukocytes in Blood 0.8 % 0.0-0.79 H by Automated count (test code = 706-2) [facility] HospitalRubella virus Ab [Titer] in [id number] 01:36:00 Test Item Value Reference Range Interpretation Comments Rubella virus IgG Ab 113.2 [IU]/mL [Units/volume] in Serum by Immunoassay (test code = 5334-8) [facility]Ch[facility] tr[facility]omat[facility]+Neisseria gonorrhoeae DNA [Presence] in Cervix by Probe and target amplification [id number] 01:36:00 ResultsMataBar[facility] City Hospital GroupABO & Rh group [Type] in [id number] 01:36:00 Test Item Value Reference Range Interpretation Comments Rh [Type] in Blood (test code = 4+ 68994-5) ABO and Rh group panel - Blood B positive (test code = 15721-7) [facility] HospitalBlood [facility] antibody screen [Presence] in Serum or Plasma 2018-03-29 01:36:00 Test Item Value Reference Range Interpretation Comments Blood group antibody screen negative [Presence] in Serum or Plasma (test code = 890-4) [facility] HospitalReagin Ab [Presence] in Serum by [id number] 01:36:00 Test Item Value Reference Range Interpretation Comments Reagin Ab [Presence] in Serum by nonreactive nonreactive RPR (test code = 85774-9) [facility] HospitalHIV 1+2 Ab [Presence] in [id number] 01:36:00HIV P24 AgHIV-1/2 AbMaWiser [facility] for Women and InfantsHepatitis B virus surface Ag [Presence] in [id number] 01:36:00 Test Item Value Reference Range Interpretation Comments .hepatitis B surface antigen (test negative negative code = .hepatitis B surface antigen) [facility] HospitalBacteria identified in Urine by [id number] 01:36:00 Test Item Value Reference Range Interpretation Comments Bacteria identified in no growth after 2 Urine by Culture (test days code = 630-4) [facility] HospitalCBC W Auto Differential panel - [id number] 01:36:00 Test Item Value Reference Range Interpretation Comments white blood count (test code = 14.4 K/uL 4.0-11.5 H white blood count) red blood count (test code = red 4.66 M/uL 3.80-5.20 blood count) Hemoglobin [Mass/volume] in Blood 13.9 g/dL 10.5-15.7 (test code = 718-7) hematocrit (test code = hematocrit) 40.2 % 34.0-50.0 Erythrocyte mean corpuscular volume 86.2 fL 78-98 [Entitic volume] (test code = 71370-5) Erythrocyte mean corpuscular 29.8 pg 26.2-33.4 hemoglobin [Entitic mass] (test code = 59836-3) mean corpuscular HGB conc (test 34.6 g/dL 31.5-36.2 code = mean corpuscular HGB conc) red cell distribution width (test 12.1 % 11.5-15.5 code = red cell distribution width) Platelets [#/volume] in Blood (test 276 K/uL 137-338 code = 79355-3) Platelet mean volume [Entitic 7.1 fL 8.4-11.8 L volume] in Blood (test code = 76596-7) Neutrophils.band form/100 70.9 % 44.4-80.1 leukocytes in Blood (test code = 52004-2) Lymphocytes/100 leukocytes in Body 22.6 % 10.0-50.0 fluid (test code = 70395-3) Monocytes/100 leukocytes in Blood 5.5 % 3.6-12.04 by Automated count (test code = 5905-5) Eosinophils/100 leukocytes in Blood 0.3 % 0.0-5.41 by Automated count (test code = 713-8) Basophils/100 leukocytes in Blood 0.8 % 0.0-0.79 H by Automated count (test code = 706-2) [facility] HospitalRubella virus Ab [Titer] in [id number] 01:36:00 Test Item Value Reference Range Interpretation Comments Rubella virus IgG Ab 113.2 [IU]/mL [Units/volume] in Serum by Immunoassay (test code = 5334-8) [facility] HospitalChlamydia trachomatis+Neisseria gonorrhoeae DNA [Presence] in Cervix by Probe and target amplification [id number] 01:36:00 ResultsMatagoWoodland Medical Center GroupABO & Rh group [Type] in [id number] 01:36:00 Test Item Value Reference Range Interpretation Comments Rh [Type] in Blood (test code = 4+ 71887-5) ABO and Rh group panel - Blood B positive (test code = 42529-0) [facility] HospitalBlood group antibody screen [Presence] in Serum or Plasma 2018-03-29 01:36:00 Test Item Value Reference Range Interpretation Comments Blood group antibody screen negative [Presence] in Serum or Plasma (test code = 890-4) [facility] HospitalReagin Ab [Presence] in Serum by [id number] 01:36:00 Test Item Value Reference Range Interpretation Comments Reagin Ab [Presence] in Serum by nonreactive nonreactive RPR (test code = 13868-0) [facility] HospitalHIV 1+2 Ab [Presence] in [id number] 01:36:00HIV P24 AgHIV-1/2 AbMataMerit Health River OaksHepatitis B virus surface Ag [Presence] in [id number] 01:36:00 Test Item Value Reference Range Interpretation Comments .hepatitis B surface antigen (test negative negative code = .hepatitis B surface antigen) [facility] HospitalBacteria identified in Urine by [id number] 01:36:00 Test Item Value Reference Range Interpretation Comments Bacteria identified in no growth after 2 Urine by Culture (test days code = 630-4) [facility] W Auto Differential panel - [id number] 01:36:00 Test Item Value Reference Range Interpretation Comments white blood count (test code = 14.4 K/uL 4.0-11.5 H white blood count) red blood count (test code = red 4.66 M/uL 3.80-5.20 blood count) Hemoglobin [Mass/volume] in Blood 13.9 g/dL 10.5-15.7 (test code = 718-7) hematocrit (test code = hematocrit) 40.2 % 34.0-50.0 Erythrocyte mean corpuscular volume 86.2 fL 78-98 [Entitic volume] (test code = 90174-1) Erythrocyte mean corpuscular 29.8 pg 26.2-33.4 hemoglobin [Entitic mass] (test code = 47975-2) mean corpuscular HGB conc (test 34.6 g/dL 31.5-36.2 code = mean corpuscular HGB conc) red cell distribution width (test 12.1 % 11.5-15.5 code = red cell distribution width) Platelets [#/volume] in Blood (test 276 K/uL 137-338 code = 17101-5) Platelet mean volume [Entitic 7.1 fL 8.4-11.8 L volume] in Blood (test code = 42105-4) Neutrophils.band form/100 70.9 % 44.4-80.1 leukocytes in Blood (test code = 41540-7) Lymphocytes/100 leukocytes in Body 22.6 % 10.0-50.0 fluid (test code = 65377-2) Monocytes/100 leukocytes in Blood 5.5 % 3.6-12.04 by Automated count (test code = 5905-5) Eosinophils/100 leukocytes in Blood 0.3 % 0.0-5.41 by Automated count (test code = 713-8) Basophils/100 leukocytes in Blood 0.8 % 0.0-0.79 H by Automated count (test code = 706-2) [facility] GroupRubella virus Ab [Titer] in [id number] 01:36:00 Test Item Value Reference Range Interpretation Comments Rubella virus IgG Ab 113.2 [IU]/mL [Units/volume] in Serum by Immunoassay (test code = 5334-8) [facility] GroupChlamydia trachomatis+Neisseria gonorrhoeae DNA [Presence] in Cervix by Probe and target amplification [id number] 01:36:00 ResultsMatagorda Medical GroupABO & Rh group [Type] in [id number] 01:36:00 Test Item Value Reference Range Interpretation Comments Rh [Type] in Blood (test code = 4+ 03076-8) ABO and Rh group panel - Blood B positive (test code = 14344-5) [facility] GroupBlood group antibody screen [Presence] in Serum or Plasma 2018-03-29 01:36:00 Test Item Value Reference Range Interpretation Comments Blood group antibody screen negative [Presence] in Serum or Plasma (test code = 890-4) [facility] GroupReagin Ab [Presence] in Serum by [id number] 01:36:00 Test Item Value Reference Range Interpretation Comments Reagin Ab [Presence] in Serum by nonreactive nonreactive RPR (test code = 54591-8) [facility] HospitalHIV 1+2 Ab [Presence] in [id number] 01:36:00HIV P24 AgHIV-1/2 AbTyler [facility] HospitalHepatitis B virus surface Ag [Presence] in [id number] 01:36:00 Test Item Value Reference Range Interpretation Comments .hepatitis B surface antigen (test negative negative code = .hepatitis B surface antigen) [facility] HospitalBacteria identified in Urine by [id number] 01:36:00 Test Item Value Reference Range Interpretation Comments Bacteria identified in no growth after 2 Urine by Culture (test days code = 630-4) [facility] HospitalMicroscopic observation [Identifier] in Cervix by Cyto stain.thin [id number] 01:36:00ResultsMaWiser Hospital for Women and Infantspregnancy test, [id number] 11:34:00 Test Item Value Reference Range Interpretation Comments Test (test code = positive Test) [facility] Hospitalpregnancy test, [id number] 11:34:00 Test Item Value Reference Range Interpretation Comments Test (test code = positive Test) [facility]
[2021-07-04 12:03] LABS: Urine Blood 3+ (Negative); Urine Glucose Trace (Negative); Urine Protein 3+ (Negative); Urine pH 8.5 (5.0-7.0)
[2021-07-04] MEDS ORDERED: ONDANSETRON 4 MG/2 ML VIAL ONE ×2 (12:15→16:09)
[2021-07-04] MEDS ORDERED: FAMOTIDINE 20 MG/2 ML VIAL IV ONE (12:15)
[2021-07-04] MEDS ORDERED: NA CHLORIDE 0.9% 1,000 ML ONE (12:15)
[2021-07-04] MEDS ORDERED: MORPHINE 4 MG/ML SYR ONE (12:15)
[2021-07-04 12:46] LABS: Urine Bacteria <20 /HPF (<20); Urine RBC >50 /HPF (NONE SEEN)
[2021-07-04 12:54] LABS: Absolute Lymphocytes (CBC) 1.4 K/uL (0.7-4.9); Hematocrit 39.2 % (36.0-45.0); Lymphocytes % 10.2 % (15.3-44.8); MPV 7.5 fL (7.6-11.3); RBC Red Blood Cell Count 4.52 M/uL (3.86-4.86)
[2021-07-04 13:19] LABS: ALT/SGPT 21 U/L (12-78); AST/SGOT 13 U/L (15-37); Albumin 3.6 g/dL (3.4-5.0); Alkaline Phosphatase 58 U/L (45-117); BUN Blood Urea Nitrogen 10 mg/dL (7-18); Bicarbonate 25 mmol/L (21-32); Bilirubin Total 0.6 mg/dL (0.2-1.0); Glucose Level 105 mg/dL (74-106); Lipase 78 U/L (73-393); Potassium 3.6 mmol/L (3.5-5.1); Protein, Total 7.4 g/dL (6.4-8.2); Sodium Level 138 mmol/L (136-145)
--- NOTE | 2021-07-04 13:55 | RAD REPORT ---
EXAM DESCRIPTION: CT - Abdomen Pelvis W Contrast - 07/04/2021 1:32 pm CLINICAL HISTORY: left flank pain COMPARISON: Abdomen Pelvis W Contrast dated 12/19/2017 TECHNIQUE: Biphasic, helical CT imaging of the abdomen and pelvis was performed following 100 ml non -ionic IV contrast. No oral contrast administered. All CT scans are performed using dose optimization technique as appropriate and may include automated exposure control or mA/KV adjustment according to patient size. FINDINGS: No suspicious findings in the lung bases. The liver, spleen, and pancreas show no suspicious findings. Gallbladder is absent. Mild biliary tree dilatation is present but not outside of range of normal for post cholecystectomy patient. The bilia ry dilatation is slightly greater than seen in 2018. Duct stones can be occult. Correlation can be ma de to determine if patient has any clinical or laboratory findings of biliary obstruction. Symmetric renal function is seen with no hydronephrosis or suspicious renal mass. No pyelonephritis f indings. There are no obstructing or nonobstructing calculi. There is a mild or low-level enhancement of the hughes of the pelvis and left ureter. Hughes of the urinary bladder also show a mild enhancemen t. No bladder wall thickening or mass identified. No uterine or ovarian abnormality seen. No adrenal abnormalities. Tubal ligation clips appear to be present with no fallopian tube dilatation. Diaphragm or other barrier device is present in the vaginal vault. In the setting of tubal ligation clips this may be a support structure not of acute clinical significance. No dilated bowel loops or bowel wall thickening. No suspicion for appendicitis or other acute GI find ing. No free air, free fluid or inflammatory stranding. No hernia, mass or bulky lymphadenopathy. No acute bone findings are identifiable. The patient does have advanced for age degenerative disc dis ease at L4-5 and L5-S1. There is degenerative gas in the L4-5 disc space. Gas density posterior to th e L5 body may be part of extruded disc material from L4-5. Disc bulge and annulus calcification seen at the L5-S1 disc level. IMPRESSION: Mild low-level enhancement of the urinary bladder hughes and left collecting system is se en. Correlation is needed for any clinical or laboratory findings of cystitis and left-side ureteriti s. No obstructing calculus, hydronephrosis or pyelonephritis identifiable. Advanced for age degenerative change at L4-5 and L5-S1 with possible extruded disc material posterior to the L5 body. Follow-up outpatient MRI imaging could be performed if the patient is symptomatic. Biliary tree dilatation is present. This is greater than seen in 2018 but still not outside of range of normal for a post cholecystectomy patient. Correlation is needed with any laboratory or clinical f indings for biliary obstruction.
[2021-07-04] MEDS ORDERED: FUROSEMIDE 40 MG/4 ML VIAL ONE (14:46)
[2021-07-04] MEDS ORDERED: CEFTRIAXONE 1000 MG/VIAL ONE (15:37)
--- NOTE | 2021-07-04 16:06 | ER ---
Nurse's Notes [facility] Name: Ruchi Stafford Age: 35 yrs Sex: Female : 1985 Arrival Date: 07/04/2021 Time: 11:18 Bed 23 Private MD: Diagnosis: Vomiting;Flank Pain Presentation: 07/04 11:22 Chief complaint: Patient states: "My kidneys have been hurting and this morning I ab2 started throwing up and my back hurts." Pt states she is having burning on urination, Left flank pain and upper abdominal pain. Coronavirus screen: Vaccine status: Patient reports being unvaccinated. Client denies travel out of the [place] in the last 14 days. At this time, the client does not indicate any symptoms associated with coronavirus-19. Ebola Screen: Patient negative for fever greater than or equal to 101.5 degrees Fahrenheit, and additional compatible Ebola Virus Disease symptoms Patient denies exposure to infectious person. Patient denies travel to an Ebola-affected area in the 21 days before illness onset. No symptoms or risks identified at this time. Initial Sepsis Screen: Does the patient meet any 2 criteria? No. Patient's initial sepsis screen is negative. Does the patient have a suspected source of infection? No. Patient's initial sepsis screen is negative. Risk Assessment: Do you want to hurt yourself or someone else? Patient reports no desire to harm self or others. Onset of symptoms is unknown. 11:22 Method Of Arrival: Ambulatory ab2 11:22 Acuity: MELY 3 ab2 Triage Assessment: 11:25 General: Appears uncomfortable, Behavior is cooperative, crying. Pain: Complains of ab2 pain in left low back and abdomen Pain does not radiate. Pain currently is 10 out of 10 on a pain scale. EENT: No deficits noted. Neuro: Level of Consciousness is awake, alert, obeys commands, Oriented to person, place, time, situation, Appropriate for age Cleaner Greaser are equal bilaterally. Cardiovascular: No deficits noted. Denies chest pain, shortness of breath, Patient's skin is warm and dry. Respiratory: No deficits noted. Airway is patent Respiratory effort is even, unlabored, Respiratory pattern is regular, symmetrical, Breath sounds are clear bilaterally. GI: Abdomen is round non-distended, Reports lower abdominal pain, upper abdominal pain, intolerance of fluids, intolerance of food, nausea, vomiting. : No deficits noted. Derm: Skin is intact, is healthy with good turgor, Skin is pink, warm \\T\\ dry. Historical: - Allergies: 11:22 Amoxicillin; ab2 - PMHx: 11:22 Depression; GERD; Irritable Bowel Syndrome (chronic N/V/D); ab2 - PSHx: 11:22 Cholecystectomy; ab2 - Immunization history:: Adult Immunizations up to date. - Social history:: Smoking status: Patient reports the use of cigarette tobacco products, smokes one pack cigarettes per day. Screenin:30 Abuse screen: Denies threats or abuse. Denies injuries from another. Nutritional ld1 screening: No deficits noted. Tuberculosis screening: No symptoms or risk factors identified. Fall Risk None identified. Assessment: 12:30 General: Appears in no apparent distress. uncomfortable, Behavior is calm, cooperative, ld1 appropriate for age. 12:30 Pain: Complains of pain in posterior aspect of left lateral abdomen and anterior aspect ld1 of left lateral abdomen Pain does not radiate. Pain currently is 9 out of 10 on a pain scale. Quality of pain is described as stabbing, throbbing, Pain began suddenly, Is continuous. Neuro: Level of Consciousness is awake, alert, obeys commands, Oriented to person, place, time, situation. Cardiovascular: Capillary refill < 3 seconds Patient's skin is warm and dry. Respiratory: Airway is patent Respiratory effort is even, unlabored, Respiratory pattern is regular, symmetrical. GI: Abdomen is flat, non-distended, Bowel sounds present X 4 quads. Abd is soft Abdomen is tender to palpation in left upper quadrant and left lower quadrant. : No signs and/or symptoms were reported regarding the genitourinary system. EENT: No signs and/or symptoms were reported regarding the EENT system. Derm: No signs and/or symptoms reported regarding the dermatologic system. Musculoskeletal: No signs and/or symptoms reported regarding the musculoskeletal system. 14:00 Reassessment: Patient appears in no apparent distress at this time. Patient and/or ld1 family updated on plan of care and expected duration. Pain level reassessed. Patient is alert, oriented x 3, equal unlabored respirations, skin warm/dry/pink. 15:39 Reassessment: Patient appears in no apparent distress at this time. No changes from ld1 previously documented assessment. Patient and/or family updated on plan of care and expected duration. Pain level reassessed. Patient is alert, oriented x 3, equal unlabored respirations, skin warm/dry/pink. Vital Signs: 11:22 BP 161 / 104; Pulse 69; Resp 18; Temp 98.8; Pulse Ox 100% on R/A; Weight 71.67 kg; ab2 Height 5 ft. 5 in. (165.10 cm); Pain 10/10; 12:30 BP 127 / 89; Pulse 55; Resp 18; Pulse Ox 100% on R/A; Pain 9/10; ld1 14:00 BP 125 / 113; Pulse 66; Resp 18; Pulse Ox 100% on R/A; ld1 15:39 BP 119 / 98; Pulse 62; Resp 18; Pulse Ox 100% on R/A; ld1 11:22 Body Mass Index 26.29 (71.67 kg, 165.10 cm) ab2 ED Course: 11:18 Patient arrived in ED. as 11:25 Triage completed. ab2 11:26 Arm band placed on right wrist. ab2 11:36 Srikanth Hahn PA is PHCP. [facility] 11:36 Cosme Dudley MD is Attending Physician. [facility] 12:01 Juany Carrillo, LINDA is Primary Nurse. ld1 12:05 Initial lab(s) drawn, by solar lab technician, sent to lab. Urine collected: clean catch specimen, kj1 blood tinged. Inserted saline lock: 22 gauge in left antecubital area, using aseptic technique. Blood collected. 12:12 Urine --Ancillary (enter results) Sent. kj1 12:12 Urine Culture Sent. kj1 12:12 Urine Microscopic Only Sent. kj1 12:30 Patient has correct armband on for positive identification. Placed in gown. Bed in low ld1 position. Call light in reach. Side rails up X2. policy change clerk on. Pulse ox on. NIBP on. Door closed. Noise minimized. Warm blanket given. 12:30 No provider procedures requiring assistance completed. ld1 13:34 CT Abd/Pelvis - IV Contrast Only In Process Unspecified. EDMS 16:14 IV discontinued, intact, bleeding controlled, No redness/swelling at site. Pressure ss dressing applied. Administered Medications: 12:15 Drug: NS 0.9% 1000 ml Route: IV; Rate: 1 bolus; Site: left antecubital; ld1 12:15 Drug: Pepcid (famotidine) 20 mg Route: IVP; Site: left antecubital; ld1 12:15 Drug: Zofran (Ondansetron) 4 mg Route: IVP; Site: left antecubital; ld1 12:15 Drug: morphine 4 mg Route: IVP; Site: left antecubital; ld1 15:38 Drug: Rocephin (cefTRIAXone) 2 grams Route: IV; Rate: calculated rate; Site: left ld1 antecubital; Outcome: 16:05 Discharge ordered by . kendal 16:14 Discharged to home ambulatory. 16:14 Condition: good 16:14 Discharge instructions given to patient, Instructed on discharge instructions, follow up and referral plans. medication usage, Demonstrated understanding of instructions, follow-up care, Prescriptions given X 3. 16:14 Patient left the ED. Addendum: 07/07/2021 08:14 Addendum: Culture Results: Positive urine culture. No further action required. Bacteria e b sensitive to prescribed antibiotic. Signatures: Dispatcher [employer] EDMS Srikanth Hahn PA PA jmm Martinez, Amelia as Smirch, Shelby, RN RN ss Botello, Elizabeth eb Jackson, Kandis kj1 Juany Carrillo RN RN ld1 Milan Sanchez2
--- NOTE | 2021-07-04 16:06 | EDPHYS ---
Physician Documentation [facility] Name: Ruchi Stafford Age: 35 yrs Sex: Female : 1985 Arrival Date: 07/04/2021 Time: 11:18 Bed 23 Private MD: ED Physician Cosme Dudley HPI: 07/04 12:04 This 35 yrs old Female presents to ER via Ambulatory with complaints of Abdominal Pain, jmm Low Back Pain, Vomiting. 12:04 The patient presents with abdominal pain. Onset: The symptoms/episode began/occurred jmm gradually, today. The symptoms radiate to left back, the left flank. Associated signs and symptoms: Pertinent positives: nausea and vomiting, diarrhea. The symptoms are described as achy, crampy, intermittent. Modifying factors: The symptoms are alleviated by nothing, the symptoms are aggravated by nothing. The patient has experienced similar episodes in the past. Historical: - Allergies: 11:22 Amoxicillin; ab2 - PMHx: 11:22 Depression; GERD; Irritable Bowel Syndrome (chronic N/V/D); ab2 - PSHx: 11:22 Cholecystectomy; ab2 - Immunization history:: Adult Immunizations up to date. - Social history:: Smoking status: Patient reports the use of cigarette tobacco products, smokes one pack cigarettes per day. ROS: 12:04 Constitutional: Negative for fever, chills, and weight loss, Cardiovascular: Negative jmm for chest pain, palpitations, and edema, Respiratory: Negative for shortness of breath, cough, wheezing, and pleuritic chest pain. 12:04 Abdomen/GI: Positive for abdominal pain, nausea and vomiting, diarrhea. 12:04 All other systems are negative. Exam: 12:04 Constitutional: This is a well developed, well nourished patient who is awake, alert, jmm and in no acute distress. Head/Face: atraumatic. Eyes: EOMI, no conjunctival erythema appreciated ENT: Moist Mucus Membranes Neck: Trachea midline, Supple Chest/axilla: Normal chest wall appearance and motion. Cardiovascular: Regular rate and rhythm. No edema appreciated Respiratory: Normal respirations, no respiratory distress appreciated 12:04 Back: Normal ROM Skin: General appearance color normal MS/ Extremity: Moves all extremities, no obvious deformities appreciated, no edema noted to the lower extremities Neuro: Awake and alert Psych: Behavior is normal, Mood is normal, Patient is cooperative and pleasant 12:04 Abdomen/GI: Inspection: abdomen appears normal, Bowel sounds: normal, Palpation: soft, mild abdominal tenderness, in the left upper quadrant and left lower quadrant. Vital Signs: 11:22 BP 161 / 104; Pulse 69; Resp 18; Temp 98.8; Pulse Ox 100% on R/A; Weight 71.67 kg; ab2 Height 5 ft. 5 in. (165.10 cm); Pain 10/10; 12:30 BP 127 / 89; Pulse 55; Resp 18; Pulse Ox 100% on R/A; Pain 9/10; ld1 14:00 BP 125 / 113; Pulse 66; Resp 18; Pulse Ox 100% on R/A; ld1 15:39 BP 119 / 98; Pulse 62; Resp 18; Pulse Ox 100% on R/A; ld1 11:22 Body Mass Index 26.29 (71.67 kg, 165.10 cm) ab2 MDM: 12:06 Patient medically screened. [facility] 16:04 Data reviewed: vital signs, nurses notes. Counseling: I had a detailed discussion with kendal the patient and/or guardian regarding: the historical points, exam findings, and any diagnostic results supporting the discharge/admit diagnosis, lab results, radiology results, the need for outpatient follow up, to return to the emergency department if symptoms worsen or persist or if there are any questions or concerns that arise at home. 07/04 12:03 Order name: Urine Dipstick-Ancillary; Complete Time: 12:06 [facility] 07/04 12:03 Order name: Urine Microscopic Only; Complete Time: 13:26 [facility] 07/04 12:03 Order name: Urine Culture [facility] 07/04 12:03 Order name: Urine --Ancillary (enter results); Complete Time: 13:26 [facility] 07/04 12:08 Order name: CBC with Diff; Complete Time: 13:26 [facility] 07/04 12:08 Order name: CMP; Complete Time: 13:26 [facility] 07/04 12:08 Order name: Lipase; Complete Time: 13:26 [facility] 07/04 12:08 Order name: CT Abd/Pelvis - IV Contrast Only; Complete Time: 14:03 [facility] 07/04 12:08 Order name: IV Saline Lock; Complete Time: 12:08 [facility] 07/04 12:08 Order name: Labs collected and sent; Complete Time: 12:08 [facility] 07/04 12:08 Order name: Urine Dipstick-Ancillary (obtain specimen); Complete Time: 12:08 [facility] 07/04 12:08 Order name: Urine Test (obtain specimen); Complete Time: 12:09 [facility] Administered Medications: 12:15 Drug: NS 0.9% 1000 ml Route: IV; Rate: 1 bolus; Site: left antecubital; ld1 12:15 Drug: Pepcid (famotidine) 20 mg Route: IVP; Site: left antecubital; ld1 12:15 Drug: Zofran (Ondansetron) 4 mg Route: IVP; Site: left antecubital; ld1 12:15 Drug: morphine 4 mg Route: IVP; Site: left antecubital; ld1 15:38 Drug: Rocephin (cefTRIAXone) 2 grams Route: IV; Rate: calculated rate; Site: left ld1 antecubital; Disposition: 17:11 Co-signature as Attending Physician, Cosme Dudley MD I agree with the assessment and kdr plan of care. Disposition Summary: 07/04/21 16:05 Discharge Ordered Location: Home [facility] Condition: Stable [facility] Diagnosis - Vomiting [facility] - Flank Pain [facility] Followup: [facility] - With: Private Physician - When: 2 - 3 days - Reason: Recheck today's complaints, Continuance of care, Re-evaluation by your physician Discharge Instructions: - Discharge Summary Sheet [facility] - Flank Pain, Adult [facility] - Vomiting, Adult [facility] Forms: - Medication Reconciliation Form [facility] - Thank You Letter [facility] - Antibiotic Education [facility] - Prescription Opioid Use [facility] Prescriptions: - Cephalexin 500 mg Oral Capsule - take 1 capsule by ORAL route every 8 hours for 10 days; 30 capsule; Refills: 0, [facility] Product Selection Permitted - orphenadrine citrate 100 mg Oral Tablet Sustained Release - take 1 tablet by ORAL route 2 times per day As needed; 20 tablet; Refills: 0, [facility] Product Selection Permitted - ondansetron 4 mg Oral tablet,disintegrating - place 1 tablet by TRANSLINGUAL route every 4-6 hours As needed; 20 tablet; [facility] Refills: 0, Product Selection Permitted Signatures: Dispatcher [employer] Cosme Gee MD MD [facility] Srikanth Hahn PA PA jmm Dibbern, Lauren, RN RN ld1 Milan Sanchez
[2021-07-04 20:33] VITALS: TEMP 98.8; O2SAT 100
[2021-07-04 20:37] VITALS: BP 119/98
== END 2021-07-04 16:14 | disposition home or self-care (01) ==
LOC: ER 11:17
DX: R11.2 Nausea with vomiting, unspecified (principal); F17.210 Nicotine dependence, cigarettes, uncomplicated; Z88.1 Allergy status to other antibiotic agents
CPT/HCPCS: 87088; 85025; 87086; 36415; 81025; 87077; 87186; 83690; 80053; 74177; 96375; 96374; 99284; Q9967; J1940; J7030; J2405 ×2; 81003; 81015